=== PATIENT | male | born 1985 | race Caucasian/White ===

== ENCOUNTER 2022-02-15 13:59 | Observation (INO) ==
[2022-02-15 14:53] LABS: Basophils # (auto) 0.03 K/uL (0-0.2); Basophils % (auto) 0.4 %; Eosinophils # (auto) 0.15 K/uL (0-0.50); Eosinophils % (auto) 1.8 %; Hematocrit (blood only) 45.9 % (40.1-51.0); Hemoglobin 16.4 g/dl (14.0-18.0); Immature Granulocytes # (auto) 0.02 K/uL (0.00-0.02); Immature Granulocytes % (auto) 0.2 %; Lymphocytes % (auto) 19.4 %; Mean Corpuscular Hemoglobin 30.7 pg (25.0-34.0); Mean Corpuscular Hgb Conc 35.7 g/dL (32.0-36.0); Mean Corpuscular Volume 85.8 fL (80.0-100.0); Mean Platelet Volume 9.2 fL (9.4-12.4); Monocytes # (auto) 0.65 K/uL (0.24-0.82); Monocytes % (auto) 7.9 %; Neutrophils # (auto) 5.79 K/uL (1.4-6.5); Neutrophils % (auto) 70.3 %; Platelet Count 170 K/uL (130-400); RDW Coefficient of Variation 12.1 % (11.5-14.5); RDW Standard Deviation 37.6 fL (36.4-46.3); Red Blood Count 5.35 M/uL (4.63-6.08); White Blood Count 8.24 K/ul (4.8-10.8)
[2022-02-15 15:23] LABS: Alanine Aminotransferase 41 U/L (7-52); Albumin Globulin Ratio 1.5 (0.9-2); Albumin Level 4.7 gm/dl (3.4-5.0); Alkaline Phosphatase 67 U/L (34-104); Anion Gap 9 (3-11); Aspartate Aminotransferase 29 U/L (13-39); BUN Creatinine Ratio 35.1 (10-20); Bilirubin,Total 1.6 mg/dl (0.2-1.0); Blood Urea Nitrogen 27 mg/dl (6-23); C Reactive Protein < 0.50 mg/dl (0-0.5); Calcium 9.6 mg/dl (8.5-10.1); Carbon Dioxide 25 mmol/L (21-32); Chloride 103 mmol/L (98-107); Creatinine Clr Calc Pharmacy 169.9 ml/min; Est GFR (African American) 136.3 ml/min; Est GFR (Non-African American) 117.6 ml/min; Globulin 3.2 gm/dl (2.5-4.0); Glucose 118 mg/dl (70-99(Fasting)); Potassium 3.8 mmol/L (3.5-5.1); Sodium 137 mmol/L (136-145); Total Protein 7.9 gm/dl (6.0-8.3)
--- NOTE | 2022-02-15 15:44 | XRay Report ---
XR hand RT min 3V routine CLINICAL HISTORY: R hand swelling COMPARISON STUDY: None. FINDINGS: No fracture or dislocation within the right hand. There is diffuse soft tissue swelling. Th is is most pronounced within the thenar region. No radiopaque foreign bodies. Bone mineralization is intact. No erosive changes. IMPRESSION: Diffuse soft tissue swelling within the right hand. No fractures. ACT 112: Negative or not required by law. Electronically signed by: Saleem Gracia M.D. 02/15/2022 3:43 PM
--- NOTE | 2022-02-15 16:33 | Ultrasound Report ---
ULTRASOUND RIGHT UPPER EXTREMITY VENOUS CLINICAL HISTORY: Right hand swelling. COMPARISON STUDY: No priors.. TECHNIQUE: Real-time, grayscale, and color Doppler sonography of the deep veins of the right upper ex tremity is performed. Compression and augmentation were utilized. FINDINGS: There is no sonographic evidence of deep venous thrombosis identified in the right upper ex tremity. The right internal jugular, axillary, and brachial veins are patent and normally compressibl e. Normal venous waveforms and augmentation are seen within the right subclavian vein. The cephalic a nd basilic veins are clear. The visualized radial and ulnar veins are patent. Slow flow is seen throu ghout the regional veins. IMPRESSION: There is no sonographic evidence of deep venous thrombosis identified in the right upper extremity. ACT 112: Negative or not required by law. Electronically signed by: Shayne Vora M.D. 02/15/2022 4:31 PM
[2022-02-15] MEDS ORDERED: SODIUM CHLORIDE 0.9% 1000ML 1,000 ML IV ONE (17:25)
[2022-02-15] MEDS ORDERED: ACETAMINOPHEN 1,000 MG/100 ML VIAL IV STA (17:25)
[2022-02-15] MEDS ORDERED: OPTIRAY 350 100ml IV ONE (18:51)
[2022-02-15 19:15] LABS: Creatine Kinase 87 U/L (30-223)
--- NOTE | 2022-02-15 19:37 | CT Scan Report ---
CT forearm RT w con HISTORY: 37 years-old Male R arm swell/pain, impaired venous flow, recent vax acute pain and swellin g of the right upper extremity with reported recent vaccination COMPARISON: Chest CT of same day TECHNIQUE: Multiple axial CT images of the right forearm were obtained following the intravenous admi nistration of 89 mL Optiray 350. A dose lowering technique was used consistent with the principals of BARBI. FINDINGS: Motion degraded exam. Dorsal subcutaneous edema of the proximal forearm. No intramuscular or drainabl e fluid collection identified. The musculature is within normal limits. No abnormal enhancement ident ified. No acute fracture, dislocation or osseous erosion. IMPRESSION: 1. No acute fracture. 2. Nonspecific dorsal subcutaneous edema of the proximal to mid forearm. No abscess. ACT 112: Negative or not required by law. The above report was generated using voice recognition software. It may contain grammatical, syntax o r spelling errors. Electronically signed by: Shelton Ravi M.D. 02/15/2022 7:35 PM
--- NOTE | 2022-02-15 19:46 | CT Scan Report ---
CHEST CT WITH CONTRAST HISTORY: Acute pain of the chest and right upper arm with soft tissue swelling R arm swell/pain, imp aired venous flow, recent vax TECHNIQUE: Multiaxial CT images of the chest were performed following the IV administration of 89 cc of Optiray. A dose lowering technique was utilized adhering to the principles of ALARA. COMPARISON: Right upper extremity duplex venous Doppler study of same day. FINDINGS: Study is limited secondary to positioning of the patient. Normal thyroid. The heart is norm al in size with moderate coronary artery calcifications. No pericardial effusion. Unremarkable thorac ic aorta. No pneumothorax, pleural effusion, airspace consolidation or overt pulmonary edema. Minimal dependent subsegmental bibasilar atelectasis. Subcentimeter calcified granuloma of the basal left lo wer lobe. The central airways appear patent. Mild nonspecific distal esophageal wall thickening. Suggested hepatic steatosis. Mild gynecomastia. F racture identified. IMPRESSION: 1. No acute intrathoracic abnormality. 2. Again advanced moderate coronary artery calcifications ACT 112: Negative or not required by law. Electronically signed by: Shelton Ravi M.D. 02/15/2022 7:43 PM
[2022-02-15] MEDS ORDERED: dexAMETHasone**PF** 10 MG/ML VIAL IV ONE (20:16)
--- NOTE | 2022-02-15 21:56 | Emergency Department Note ---
Impression & Plan Pain of right upper extremity, Edema of right upper extremity, History of psoriatic arthritis ED Provider Note NAME: ALKA HONG AGE: 37 SEX: M ARRIVES VIA: Walk-In INFORMANT: Patient ED PROVIDER(S): Steven Orellana MD CHIEF COMPLAINT: Right arm swelling. PLAN: Disposition: Admit MEDICAL DECISION MAKING: The patient is a pleasant 37-year-old gentleman with a past medical history of psoriatic arthritis on Humira, diabetes, hypertension who presents emergency department, by his for evaluation of right arm swelling that has been ongoing for the past several days. Patient saw his PCP yesterday and had a scheduled outpatient ultrasound today but they arrived late for the appointment and presents to the emergency department as his symptoms were getting worse and did not want to wait for rescheduling. He denies any fevers, chills, cough, congestion, GI or symptoms. He denies any falls. He initially reports that the swelling got better when he raised his arm but now feels that this does not improve it at all. He reports he will get joint pain and swelling with his psoriatic arthritis but has never had his whole arm become swollen like this. On arrival the patient is no acute distress, afebrile stable vital signs. He has moderate edema in the right hand, forearm and upper arm. No erythema or warmth. Compartments are not tense and he has full range of motion without significant pain on passive stretch. He is a palpable radial and ulnar pulse. There is no tender axillary lymphadenopathy. He has delayed capillary refill due to suspected venous congestion. WBC, H/H and platelets within normal limits. Chemistry without metabolic acidosis. ESR 17, marginally above normal and CRP undetectable. Lactic acid 0.7, within normal limits. Total bili 1.6, nonspecific with alk phos within normal limits and LFTs otherwise unremarkable. CPK is within normal limits. High-sensitivity troponin 4.0, within normal limits. Procalcitonin is undetectable. COVID-19 RNA, PIO test was negative. Ultrasound of the right upper extremity was negative for DVT. CTA of the right upper extremity and chest were performed and were also negative for acute abnormalities. Soft tissue edema is noted. Unclear etiology to the patient's symptoms at this time. Infection less likely given reassuring blood work. Thoracic outlet syndrome is considered a possibility however his symptoms did occur rather abruptly and initially reported improvement when he would raise his arm and so considered less likely. A flare of his psoriatic arthritis is also possible though with nonelevated inflammatory markers considered less likely as well though he was given a dose of dexamethasone to see if this helps improve his symptoms. Given the patient's symptoms they agree with plan for admission for further observation/management. Case was discussed with Dr. Green, [facility] hospitalist, who will evaluate the patient for admission. Triage Nursing notes reviewed and agree them. Prior medical records reviewed Vital Signs: reviewed and remarkable for no significant abnormalities Differential diagnosis: DVT, musculoskeletal, infection, joint effusion, trauma, lymphedema, idiopathic, CHF, as well as other pathologies. ER treatment provided: See below. Diagnostics interpreted by me: ECG: Normal sinus rhythm, 80 bpm, no ectopy, no overt ST elevation or depression, QTC 410, QRS 78 Cardiac Monitoring: An order for continuous cardiac monitoring was placed and demonstrated Normal sinus rhythm, 80 bpm, no ectopy Laboratory studies: See below Imaging studies: See below Consultation(s): Case was discussed with Dr. Green, [facility] Hospitalist, who will evaluate the patient for admission. HPI: The patient is a pleasant 37-year-old gentleman with a past medical history of psoriatic arthritis on Humira, diabetes, hypertension who presents emergency department, by his for evaluation of right arm swelling that has been ongoing for the past several days. Patient saw his PCP yesterday and had a scheduled outpatient ultrasound today but they arrived late for the appointment and presents to the emergency department as his symptoms were getting worse and did not want to wait for rescheduling. He denies any fevers, chills, cough, congestion, GI or symptoms. He denies any falls. He initially reports that the swelling got better when he raised his arm but now feels that this does not improve it at all. He reports he will get joint pain and swelling with his psoriatic arthritis but has never had his whole arm become swollen like this. ROS: See above HPI for pertinent positives & negatives. A total of 10 systems reviewed and were otherwise negative. VITALS:See Below PHYSICAL EXAMINATION: GENERAL: Awake, alert, well-appearing, in no distress HENT: Normocephalic, atraumatic. Oropharynx unremarkable. EYES: Normal conjunctiva. Sclera non-icteric. NECK: Supple. No nuchal rigidity. FROM. No JVD. RESPIRATORY: Clear to auscultation. CARDIAC: Regular rate, normal rhythm. Extremities warm and well perfused. Pulses equal. ABDOMEN: Soft, non-distended. No tenderness to palpation. No rebound or guarding. No masses. RECTAL: Deferred. MUSCULOSKELETAL: Chest examination reveals no tenderness. The back is symmetrical on inspection without obvious abnormality. There is no CVA tenderness to palpation. No joint edema. EXTREMITIES: Moderate edema in the right hand, forearm and upper arm. No erythema or warmth. Compartments are not tense and he has full range of motion without significant pain on passive stretch. He is a palpable radial and ulnar pulse. There is no tender axillary lymphadenopathy. He has delayed capillary refill due to suspected venous congestion. Calves are equal size bilaterally and non-tender. No edema. No discoloration. NEURO: Normal sensorium. No sensory or motor deficits noted. SKIN: No rash or jaundice noted. Steven Orellana MD Past Med/Surg History Medical History Adalimumab (Humira) long-term use Coronary artery disease Diabetes Psoriatic arthritis Family History Other Family history non-contributory Social History Smoking Status: Former smoker Hx Alcohol Use: No Hx Substance Use: No Preferred Language: Chadian Communication Ability: Effective Cannery Worker Required: No Beliefs That Will Affect Care: None Current Living Situation: Spouse Feels Safe at Home: Yes Safety Concerns: Feels Safe At This Time Assistive Devices: Glasses Allergies Allergies Allergy/AdvReac Type Severity Reaction Status Date / Time No Known Allergies Allergy Unverified 02/15/22 20:23 Home Meds Home Medications Medication Instructions Recorded Confirmed acetaminophen 650 mg 1,300 mg PO AMHS 02/15/22 02/15/22 tablet,extended release adalimumab 40 mg/0.4 mL 40 mg subcut .EVERY 14 DAYS 02/15/22 02/15/22 subcutaneous pen kit (Humira(CF) Pen) aspirin 81 mg tablet,delayed 81 mg PO QAM 02/15/22 02/15/22 release cholecalciferol (vitamin D3) 50 50 mcg PO DAILY 02/15/22 02/15/22 mcg (2,000 unit) tablet (Vitamin D3) empagliflozin 25 mg tablet 25 mg PO DAILY 02/15/22 02/15/22 (Jardiance) fluoxetine 20 mg capsule 20 mg PO QAM 02/15/22 02/15/22 fluoxetine 60 mg tablet 60 mg PO QAM 02/15/22 02/15/22 insulin glargine 100 unit/mL (3 20 unit subcut AMHS 02/15/22 02/15/22 mL) subcutaneous pen (Basaglar KwmathewPen U-100 Insulin) lisinopril 20 mg tablet 20 mg PO QAM 02/15/22 02/15/22 melatonin 10 mg tablet 10 mg PO HS 02/15/22 02/15/22 meloxicam 7.5 mg tablet 7.5 - 15 mg PO DAILY PRN Pain 02/15/22 02/15/22 metoprolol succinate 25 mg 25 mg PO QAM 02/15/22 02/15/22 tablet,extended release 24 hr multivitamin with minerals-folic 1 tab PO QAM 02/15/22 02/15/22 acid 200 mcg chewable tablet (Multivitamin Gummies) nitroglycerin 0.4 mg sublingual 0.4 mg sublingual UD PRN Chest Pain 02/15/22 02/15/22 tablet (Nitrostat) ondansetron HCl 4 mg tablet 4 mg PO BID PRN nausea 02/15/22 02/15/22 semaglutide 0.25 mg or 0.5 mg (2 0.5 mg subcut WK 02/15/22 02/15/22 mg/1.5 mL) subcutaneous pen injector (Ozempic) Results & Data (ED) Vital Signs Vital Signs - 24 hr 02/15/22 14:05 02/15/22 16:26 02/15/22 19:04 Temperature 36.6 C Temperature Source Temporal Artery Scan Pulse Rate 90 Pulse Rate [Finger] 78 86 Pulse Rhythm [Finger] Regular Pulse Strength [Finger] Respiratory Rate 18 16 16 Respiratory Effort / Characteristics Non-Labored Spontaneous Non-Labored Respiratory Depth Normal Normal Respiratory Pattern Regular Regular Blood Pressure 127/86 Blood Pressure [Left Arm] 122/78 122/78 Blood Pressure Mean 99 Blood Pressure Mean [Left Arm] 92 92 Blood Pressure Position Sitting Pulse Oximetry 96 97 99 Oxygen Delivery Method Room Air Room Air Sepsis Recent Fever Within 48 Hours No Sepsis New/Unexplained Change in Mental Status N/A Sepsis Action Taken by Nursing No Action Required 02/15/22 20:07 02/15/22 21:00 02/15/22 22:00 Temperature Temperature Source Pulse Rate Pulse Rate [Finger] 93 H 82 84 Pulse Rhythm [Finger] Regular Regular Regular Pulse Strength [Finger] Normal Normal Normal Respiratory Rate 16 16 16 Respiratory Effort / Characteristics Non-Labored Respiratory Depth Normal Normal Normal Respiratory Pattern Blood Pressure Blood Pressure [Left Arm] 122/82 118/81 125/76 Blood Pressure Mean Blood Pressure Mean [Left Arm] 95 93 92 Blood Pressure Position Pulse Oximetry 95 96 96 Oxygen Delivery Method Room Air Room Air Sepsis Recent Fever Within 48 Hours Sepsis New/Unexplained Change in Mental Status Sepsis Action Taken by Nursing 02/15/22 22:50 Temperature Temperature Source Pulse Rate 86 Pulse Rate [Finger] Pulse Rhythm [Finger] Pulse Strength [Finger] Respiratory Rate 16 Respiratory Effort / Characteristics Respiratory Depth Respiratory Pattern Blood Pressure 122/74 Blood Pressure [Left Arm] Blood Pressure Mean Blood Pressure Mean [Left Arm] Blood Pressure Position Pulse Oximetry 98 Oxygen Delivery Method Room Air Sepsis Recent Fever Within 48 Hours Sepsis New/Unexplained Change in Mental Status Sepsis Action Taken by Nursing Laboratory Data Attestation: I reviewed the patient's lab results. Result diagrams: 02/15/22 14:25 02/15/22 14:25 Lab Results 02/15/22 02/15/22 02/15/22 Range/Units 14:25 14:25 14:25 WBC 8.24 (4.8-10.8) K/ul RBC 5.35 (4.63-6.08) M/uL Hgb 16.4 (14.0-18.0) g/dl Hct 45.9 (40.1-51.0) % MCV 85.8 (80.0-100.0) fL MCH 30.7 (25.0-34.0) pg MCHC 35.7 (32.0-36.0) g/dL RDW Std Deviation 37.6 (36.4-46.3) fL RDW Coeff of Lamont 12.1 (11.5-14.5) % Plt Count 170 (130-400) K/uL MPV 9.2 L (9.4-12.4) fL Immature Gran % (Auto) 0.2 % Neut % (Auto) 70.3 % Lymph % (Auto) 19.4 % Humphreys % (Auto) 7.9 % Eos % (Auto) 1.8 % Baso % (Auto) 0.4 % Neut # (Auto) 5.79 (1.4-6.5) K/uL Lymph # (Auto) 1.60 (1.2-3.4) K/uL Humphreys # (Auto) 0.65 (0.24-0.82) K/uL Eos # (Auto) 0.15 (0-0.50) K/uL Baso # (Auto) 0.03 (0-0.2) K/uL Immature Gran # (Auto) 0.02 (0.00-0.02) K/uL ESR 17 H (0-15) mm/hr Sodium 137 (136-145) mmol/L Potassium 3.8 (3.5-5.1) mmol/L Chloride 103 (98-107) mmol/L Carbon Dioxide 25 (21-32) mmol/L Anion Gap 9 (3-11) BUN 27 H (6-23) mg/dl Creatinine 0.77 (0.6-1.4) mg/dl Est Cr Clr Drug Dosing 169.9 ml/min Est GFR ( Amer) 136.3 ml/min Est GFR (Non-Af Amer) 117.6 ml/min BUN/Creatinine Ratio 35.1 H (10-20) Glucose 118 H (70-99(Fasting)) mg/dl Lactate (0.4-2.0) mmol/L Calcium 9.6 (8.5-10.1) mg/dl Total Bilirubin 1.6 H (0.2-1.0) mg/dl Direct Bilirubin AST 29 (13-39) U/L ALT 41 (7-52) U/L Alkaline Phosphatase 67 (34-104) U/L Total Creatine Kinase (30-223) U/L Troponin I High Sens 4.0 (0-20) pg/ml C-Reactive Protein < 0.50 (0-0.5) mg/dl Total Protein 7.9 (6.0-8.3) gm/dl Albumin 4.7 (3.4-5.0) gm/dl Globulin 3.2 (2.5-4.0) gm/dl Albumin/Globulin Ratio 1.5 (0.9-2) Procalcitonin (0-0.5) ng/ml SARS-CoV-2, RNA, NAAT (NEGATIVE) 02/15/22 02/15/22 02/15/22 Range/Units 14:25 14:25 16:29 WBC (4.8-10.8) K/ul RBC (4.63-6.08) M/uL Hgb (14.0-18.0) g/dl Hct (40.1-51.0) % MCV (80.0-100.0) fL MCH (25.0-34.0) pg MCHC (32.0-36.0) g/dL RDW Std Deviation (36.4-46.3) fL RDW Coeff of Lamont (11.5-14.5) % Plt Count (130-400) K/uL MPV (9.4-12.4) fL Immature Gran % (Auto) % Neut % (Auto) % Lymph % (Auto) % Humphreys % (Auto) % Eos % (Auto) % Baso % (Auto) % Neut # (Auto) (1.4-6.5) K/uL Lymph # (Auto) (1.2-3.4) K/uL Humphreys # (Auto) (0.24-0.82) K/uL Eos # (Auto) (0-0.50) K/uL Baso # (Auto) (0-0.2) K/uL Immature Gran # (Auto) (0.00-0.02) K/uL ESR (0-15) mm/hr Sodium (136-145) mmol/L Potassium (3.5-5.1) mmol/L Chloride (98-107) mmol/L Carbon Dioxide (21-32) mmol/L Anion Gap (3-11) BUN (6-23) mg/dl Creatinine (0.6-1.4) mg/dl Est Cr Clr Drug Dosing ml/min Est GFR ( Amer) ml/min Est GFR (Non-Af Amer) ml/min BUN/Creatinine Ratio (10-20) Glucose (70-99(Fasting)) mg/dl Lactate 0.7 (0.4-2.0) mmol/L Calcium (8.5-10.1) mg/dl Total Bilirubin (0.2-1.0) mg/dl Direct Bilirubin TNP AST (13-39) U/L ALT (7-52) U/L Alkaline Phosphatase (34-104) U/L Total Creatine Kinase 87 (30-223) U/L Troponin I High Sens (0-20) pg/ml C-Reactive Protein (0-0.5) mg/dl Total Protein (6.0-8.3) gm/dl Albumin (3.4-5.0) gm/dl Globulin (2.5-4.0) gm/dl Albumin/Globulin Ratio (0.9-2) Procalcitonin < 0.05 (0-0.5) ng/ml SARS-CoV-2, RNA, NAAT (NEGATIVE) 02/15/22 02/15/22 Range/Units 20:35 20:37 WBC (4.8-10.8) K/ul RBC (4.63-6.08) M/uL Hgb (14.0-18.0) g/dl Hct (40.1-51.0) % MCV (80.0-100.0) fL MCH (25.0-34.0) pg MCHC (32.0-36.0) g/dL RDW Std Deviation (36.4-46.3) fL RDW Coeff of Lamont (11.5-14.5) % Plt Count (130-400) K/uL MPV (9.4-12.4) fL Immature Gran % (Auto) % Neut % (Auto) % Lymph % (Auto) % Humphreys % (Auto) % Eos % (Auto) % Baso % (Auto) % Neut # (Auto) (1.4-6.5) K/uL Lymph # (Auto) (1.2-3.4) K/uL Humphreys # (Auto) (0.24-0.82) K/uL Eos # (Auto) (0-0.50) K/uL Baso # (Auto) (0-0.2) K/uL Immature Gran # (Auto) (0.00-0.02) K/uL ESR (0-15) mm/hr Sodium (136-145) mmol/L Potassium (3.5-5.1) mmol/L Chloride (98-107) mmol/L Carbon Dioxide (21-32) mmol/L Anion Gap (3-11) BUN (6-23) mg/dl Creatinine (0.6-1.4) mg/dl Est Cr Clr Drug Dosing ml/min Est GFR ( Amer) ml/min Est GFR (Non-Af Amer) ml/min BUN/Creatinine Ratio (10-20) Glucose (70-99(Fasting)) mg/dl Lactate (0.4-2.0) mmol/L Calcium (8.5-10.1) mg/dl Total Bilirubin (0.2-1.0) mg/dl Direct Bilirubin 0.2 AST (13-39) U/L ALT (7-52) U/L Alkaline Phosphatase (34-104) U/L Total Creatine Kinase (30-223) U/L Troponin I High Sens (0-20) pg/ml C-Reactive Protein (0-0.5) mg/dl Total Protein (6.0-8.3) gm/dl Albumin (3.4-5.0) gm/dl Globulin (2.5-4.0) gm/dl Albumin/Globulin Ratio (0.9-2) Procalcitonin (0-0.5) ng/ml SARS-CoV-2, RNA, NAAT NEGATIVE (NEGATIVE) Administered Medications Acetaminophen (Acetaminophen 325 Mg Tab) 650 mg PO Q4H PRN PRN Reason: Pain or Fever Stop: 03/17/22 23:20 Last Admin: 02/16/22 00:18 Dose: 650 mg Documented By: SHERI Ceftriaxone Sodium 2,000 mg/ (Dextrose) 70 mls @ 100 mls/hr IV DAILY MIREILLE; Protocol Stop: 02/22/22 23:20 Last Infusion: 02/16/22 01:10 Dose: 0 mls/hr Documented By: Admin: 02/16/22 00:18 Dose: 100 mls/hr Documented By: SHERI Insulin Aspart (Insulin Aspart Per Unit) 0 units SC Q6 [facility] Stop: 03/18/22 00:00 Last Admin: 02/16/22 00:19 Dose: Not Given Documented By: SHERI Co-signed By: KAREN Insulin Glargine (Lantus Per Unit Charge) 10 units SQ BID [place] Stop: 03/17/22 23:20 Last Admin: 02/16/22 00:15 Dose: 10 units Documented By: SHERI Co-signed By: KAREN Discontinued Medications Dexamethasone Sodium Phosphate (DexamethasonePf 10 Mg/Ml Vial) 10 mg IV NOW ONE Stop: 02/15/22 20:17 Last Admin: 02/15/22 21:39 Dose: 10 mg Documented By: LAUREANO Sodium Chloride (Nss 1000ml) 1,000 mls @ 999 mls/hr IV .Q1H1M ONE Stop: 02/15/22 18:25 Last Infusion: 02/15/22 18:31 Dose: 0 mls/hr Documented By: Admin: 02/15/22 17:30 Dose: 999 mls/hr Documented By: CESAR Acetaminophen (Ofirmev) 1,000 mg in 100 mls @ 400 mls/hr IV NOW STA Stop: 02/15/22 17:39 Last Infusion: 02/15/22 17:54 Dose: 0 mls/hr Documented By: Admin: 02/15/22 17:29 Dose: 400 mls/hr Documented By: CESAR Insulin Glargine (Lantus Per Unit Charge) 10 units SQ NOW ONE Stop: 02/15/22 23:57 Last Admin: 02/16/22 00:24 Dose: 10 units Documented By: SHERI Co-signed By: KAREN Ioversol (Optiray 350 100ml) 89 ml IV ONCE ONE Stop: 02/15/22 18:52 Last Admin: 02/15/22 18:51 Dose: 89 ml Documented By: TONIA Imaging Data Radiologist's Impression: Hand X-Ray 02/15/22 14:25 XR hand RT min 3V routine CLINICAL HISTORY: R hand swelling COMPARISON STUDY: None. FINDINGS: No fracture or dislocation within the right hand. There is diffuse soft tissue swelling. This is most pronounced within the thenar region. No radiopaque foreign bodies. Bone mineralization is intact. No erosive changes. IMPRESSION: Diffuse soft tissue swelling within the right hand. No fractures. ACT 112: Negative or not required by law. Electronically signed by: Saleem Garcia M.D. 02/15/2022 3:43 PM Venous Doppler Study 02/15/22 14:25 ULTRASOUND RIGHT UPPER EXTREMITY VENOUS CLINICAL HISTORY: Right hand swelling. COMPARISON STUDY: No priors.. TECHNIQUE: Real-time, grayscale, and color Doppler sonography of the deep veins of the right upper extremity is performed. Compression and augmentation were uti lized. FINDINGS: There is no sonographic evidence of deep venous thrombosis identified in the right upper extremity. The right internal jugular, axillary, and brachial veins are patent and normally compressible. Normal venous waveforms and augmentation are seen within the right subclavian vein. The cephalic and basilic veins are clear. The visualized radial and ulnar veins are patent. Slow flow is seen throughout the regional veins. IMPRESSION: There is no sonographic evidence of deep venous thrombosis identified in the right upper extremity. ACT 112: Negative or not required by law. Electronically signed by: Shayne Vora M.D. 02/15/2022 4:[address] 02/15/22 17:[address] WITH CONTRAST HISTORY: Acute pain of the chest and right upper arm with soft tissue swelling R arm swell/pain, impaired venous flow, recent vax TECHNIQUE: Multiaxial CT images of the chest were performed following the IV administration of 89 cc of Optiray. A dose lowering technique was utilized adhering to the principles of ALARA. COMPARISON: Right upper extremity duplex venous Doppler study of same day. FINDINGS: Study is limited secondary to positioning of the patient. Normal thyroid. The heart is normal in size with moderate coronary artery calcifications. No pericardial effusion. Unremarkable thoracic aorta. No pneumothorax, pleural effusion, airspace consolidation or overt pulmonary edema. Minimal dependent subsegmental bibasilar atelectasis. Subcentimeter calcified granuloma of the basal left lower lobe. The central airways appear patent. Mild nonspecific distal esophageal wall thickening. Suggested hepatic steatosis. Mild gynecomastia. Fracture identified. IMPRESSION: 1. No acute intrathoracic abnormality. 2. Again advanced moderate coronary artery calcifications ACT 112: Negative or not required by law. Electronically signed by: Shelton Ravi M.D. 02/15/2022 7:[address] 02/15/22 17:22 CT forearm RT w con HISTORY: 37 years-old Male R arm swell/pain, impaired venous flow, recent vax acute pain and swelling of the right upper extremity with reported recent va ccination COMPARISON: Chest CT of same day TECHNIQUE: Multiple axial CT images of the right forearm were obtained following the intravenous administration of 89 mL Optiray 350. A dose lowering technique was used consistent with the principals of ALARA. FINDINGS: Motion degraded exam. Dorsal subcutaneous edema of the proximal forearm. No intramuscular or drainable fluid collection identified. The musculature is within normal limits. No abnormal enhancement identified. No acute fracture, dislocation or osseous erosion. IMPRESSION: 1. No acute fracture. 2. Nonspecific dorsal subcutaneous edema of the proximal to mid forearm. No abscess. ACT 112: Negative or not required by law. The above report was generated using voice recognition software. It may contain grammatical, syntax or spelling errors. Electronically signed by: Shelton Ravi M.D. 02/15/2022 7:35 PM Discharge Plan Visit Data Chief Complaint: Swelling/Edema to Extremity Stated Complaint: SWELLING IN ARM,PAINFULL & HISTORY OF HEART ATTACK ED Provider: Steven Orellana Discharge Problem: Pain of right upper extremity, Edema of right upper extremity, History of psoriatic arthritis Patient Disposition: Admitted As Inpatient Discharge Instructions Interventions: ED Discharge Assessment Last Done: 02/15/22 22:50
[2022-02-15] MEDS ORDERED: NITROGLYCERIN SL 0.4 MG/TAB TAB SL PRN ×2 (23:21)
[2022-02-15] MEDS ORDERED: oxyCODONE HCL IR 5 MG TAB (IMMEDIATE RELEASE) PO PRN (23:21)
[2022-02-15] MEDS ORDERED: POLYETHYLENE (MIRALAX) 17 GM PACK PO PRN (23:21)
[2022-02-15] MEDS ORDERED: LANTUS PER UNIT CHARGE SQ ONE (23:56)
--- NOTE | 2022-02-15 23:59 | History and Physical Report ---
DATE OF ADMISSION: 02/15/2022 CHIEF COMPLAINT: Right upper extremity swelling. HISTORY OF PRESENT ILLNESS: A 37-year-old male with past medical history significant for depression, ADHD, history of psoriatic arthritis, currently on Humira, history of CAD, status post stent in 2019, history of diabetes, hypertension, history of short-term memory issues, chronic fatigue, brain fog, left knee meniscal tear and history of Lyme disease as a kid, presents with right upper extremity swelling going on for the last 3 days. The swelling is going up and down and also changing colors, currently pink, but yesterday he thinks it was slightly in black color and slightly bruises seen and also painful to move his right upper extremity. He had a COVID shot in the starting of this month in the same arm. Denies any fever or chills. No chest pain, no shortness of breath. No other complaints. Currently, resting comfortably, hemodynamically stable. Denies any headache. No blurred visions, no earache, no runny nose, no sore throat, no cough, no difficulty swallowing. No nausea, no abdominal pain. Normal bowel and bladder movements. ALLERGIES: No known drug allergies. PAST MEDICAL HISTORY: As mentioned above. PAST SURGICAL HISTORY: Cardiac stent placement, nerve ablation of lower back for back pain as per the patient. MEDICATIONS: The patient is on Tylenol Arthritis 1300 mg p.o. b.i.d., Humira every 14 days, aspirin 81 mg p.o. daily, vitamin D 50 mcg p.o. daily, Jardiance 25 mg p.o. daily, fluoxetine 80 mg daily, insulin glargine 20 units subcutaneous b.i.d., lisinopril 20 mg p.o. a.m., melatonin 10 mg p.o. at bedtime, meloxicam 7.5, 15 mg p.o. daily, metoprolol succinate 25 mg p.o. daily, multivitamins 1 tablet p.o. daily, Nitrostat 0.4 mg sublingual p.r.n., Zofran 4 mg p.o. b.i.d. p.r.n., semaglutide 0.5 mg subcutaneous weekly. FAMILY HISTORY: Father has diabetes, heart disease; mother has kidney stones; mother's father of MO at young age; mother's side uncle had MO. SOCIAL HISTORY: Quit smoking in 2019, prior to that smoked about 1 pack a day for 15 years. Alcohol, quit drinking alcohol about 7 years ago. Uses medical marijuana. REVIEW OF SYSTEMS: As per HPI. Rest of the review of systems is negative. PHYSICAL EXAMINATION: GENERAL: The patient is obese, not in acute distress. VITAL SIGNS: Temperature 36.6, pulse 84, respiratory rate 16, blood pressure 125/76, oxygen 96% on room air. HEENT: Pupils equal, round and reactive to light. Oral mucosa moist. NECK: No JVD, no neck masses. CARDIOVASCULAR: S1 and S2 heard. Regular rate and rhythm. No murmur, no gallop. RESPIRATORY SYSTEM: Normal AP diameter. No accessory muscle use. No wheezing, no crackles. ABDOMEN: Soft, bowel sounds present, nontender, no distention. CENTRAL NERVOUS SYSTEM: Alert and oriented. No facial droop. Speech is clear. Insight is good. Obeys commands. Moves extremities. EXTREMITIES: Right upper extremity is swollen and erythematous in the arm ,elbow forearm and hand; painful to move. LABORATORY DATA: WBC 8.2, hemoglobin 16.4, hematocrit 45.9, platelets 170. ESR 17. Sodium 137, potassium 3.8, chloride 103, bicarbonate 25, BUN 27, creatinine 0.7, serum glucose 118. Lactate 0.7, calcium 9.6, total bilirubin 1.6, AST 29, ALT 41, alkaline phosphatase 67, total creatine kinase 87. Troponin I high sensitivity 4. C-reactive protein less than 0.5. Procalcitonin less than 0.05. SARS-CoV-2 rapid test negative. IMAGING: Forearm CT with contrast: No acute fracture. Nonspecific dorsal subcutaneous edema of the proximal to mid forearm. No abscess. Venous Doppler study: There is no sonographic evidence of DVT identified in the right upper extremity. Hand x-ray: Diffuse soft tissue swelling of the right hand, no fractures. EKG: Normal sinus rhythm, rate of 80, no acute ST-T changes seen. ASSESSMENT AND PLAN: This is a 37-year-old male who presents with right upper extremity swelling. 1. Right upper extremity swelling, etiology unclear. Forearm CT with contrast, chest CT with contrast were unremarkable. Venous Doppler study negative study and x-ray was with no acute fractures. The patient has painful movements and currently has slightly reddish erythematous changes. The patient states it was slightly black yesterday and changing colors. The patient has a history of psoriatic arthritis, on Humira. There is no fever, no white count. ESR is slightly elevated at 17. CRP is normal. Lactate is normal. CPK is normal. The patient was given a dose of Decadron because of history of psoriatic arthritis. We will also empirically start on Rocephin for any infection. Consult vascular surgery and orthopedics and also rheumatology consults in the a.m. Etiology is unclear at this time.Will monitor his pulses by Doppler and Close monitor. 2. History of diabetes. We will cut back on his insulin to 10 units b.i.d. as he is currently n.p.o. and hold his Jardiance and place him on insulin sliding scale, monitor the blood sugar. 3. History of coronary artery disease, status post stent, on aspirin and beta ry. Currently stable. 4. History of hypertension, on lisinopril and metoprolol. We will monitor the blood pressure. 5. History of depression, attention-deficit/hyperactivity disorder. Continue on fluoxetine. 6. History of psoriatic arthritis, on Humira. The patient recently moved from [place], trying to establish with rheumatology locally. We will consult [facility] in the a.m. 7. Deep venous thrombosis prophylaxis, sequential compression devices for now in case if he needs any procedure. DISPOSITION: Admit to [facility]. PT/OT prior to discharge. Social service to help with discharge planning. Job ID: [id number] MTDD
[2022-02-16] MEDS: LANTUS PER UNIT CHARGE SQ SCH ×3 (00:15→21:24)
[2022-02-16] MEDS: cefTRIAXone SODIUM 2,000 MG in DEXTROSE 5% 50 ML IV SCH ×2 (00:18→08:16)
[2022-02-16] MEDS: ACETAMINOPHEN 325 MG TAB PO PRN ×3 (00:18→19:45)
[2022-02-16] MEDS: INSULIN ASPART PER UNIT SC SCH ×5 (00:19→19:55)
[2022-02-16 03:33] LABS: Appearance Urine Clear (Clear); Bilirubin Urine Negative (Negative); Blood Urine Negative (Negative); Color Urine Yellow; Glucose Urine UA 3+ (Negative); Ketones Urine Negative (Negative); Leukocyte Esterase Urine Negative (Negative); Nitrite Urine Negative (Negative); Protein Urine Negative (Negative); Specific Gravity Urine 1.042 (1.000-1.030); Urobilinogen Urine Negative (Negative); pH Urine 6.5 (4.5-7.5)
[2022-02-16 07:00] LABS: Basophils # (auto) 0.01 K/uL (0-0.2); Basophils % (auto) 0.1 %; Eosinophils # (auto) 0.01 K/uL (0-0.50); Eosinophils % (auto) 0.1 %; Hematocrit (blood only) 45.6 % (40.1-51.0); Hemoglobin 15.9 g/dl (14.0-18.0); Immature Granulocytes # (auto) 0.02 K/uL (0.00-0.02); Immature Granulocytes % (auto) 0.3 %; Lymphocytes # (auto) 0.58 K/uL (1.2-3.4); Lymphocytes % (auto) 7.8 %; Mean Corpuscular Hemoglobin 29.9 pg (25.0-34.0); Mean Corpuscular Hgb Conc 34.9 g/dL (32.0-36.0); Mean Corpuscular Volume 85.9 fL (80.0-100.0); Mean Platelet Volume 8.9 fL (9.4-12.4); Monocytes % (auto) 2.7 %; Neutrophils # (auto) 6.63 K/uL (1.4-6.5); Platelet Count 163 K/uL (130-400); RDW Coefficient of Variation 11.9 % (11.5-14.5); RDW Standard Deviation 37.2 fL (36.4-46.3); Red Blood Count 5.31 M/uL (4.63-6.08); White Blood Count 7.45 K/ul (4.8-10.8)
[2022-02-16 07:22] LABS: BUN Creatinine Ratio 33.3 (10-20); Calcium 9.7 mg/dl (8.5-10.1); Creatinine Clr Calc Pharmacy 188.8 ml/min; Est GFR (African American) 142.6 ml/min; Magnesium 2.4 mg/dl (1.7-2.4); Potassium 4.1 mmol/L (3.5-5.1)
[2022-02-16 08:04] LABS: Estimated Average Glucose 128 mg/dl; Hemoglobin A1C 6.1 % (4.5-5.6)
[2022-02-16] MEDS: METOPROLOL SUCC 25MG EXT REL TAB PO SCH (08:17)
[2022-02-16] MEDS: lisinopril 20 MG TAB PO SCH (08:17)
[2022-02-16] MEDS: CHOLECALCIFEROL 1,000 UNITS 25 MCG TAB PO SCH (08:17)
[2022-02-16] MEDS: ASPIRIN 81 MG ECTAB PO SCH (08:17)
[2022-02-16] MEDS: CEROVITE ADV FORMULA TAB PO SCH (08:18)
[2022-02-16] MEDS: FLUoxetine HCL 20 MG CAP PO SCH (08:22)
[2022-02-16] MEDS ORDERED: LACTATED RINGER'S 1,000 ML IV SCH (08:30)
[2022-02-16] MEDS ORDERED: NON-FORMULARY MEDICATION (Cholecalciferol (Vitamin D3) [Vitamin D3] 50 mcg (2,000 unit) Ta PO SCH (09:00)
[2022-02-16] MEDS ORDERED: FLUoxetine HCL 20 MG CAP PO SCH (09:00)
--- NOTE | 2022-02-16 11:14 | Consultation ---
Date of Consultation February 16, 2022 Assessment & Plan (1) Edema of right upper extremity: Pt with acute-onset RUE edema and heaviness/tightness/pain. Sx improved with lying down and/or elevating his R arm, worse when standing or sitting and arm is depdendent. Pt showed photos of his arm prior to his arrival; at that time, his arm was significantly more erythematous. Imaging demonstrates no DVT or superficial thrombophlebitis, or structural abnormalities to R arm/shoulder. He has excellent pulses, no sign of ischemia. It is possible pt initially had cellulitis of R arm, which is now improving with abx therapy. Another possibility is that he is having lymphedema of his R arm. Recommend pt undergo conservative treatment of RUE edema, including elevation, exercises or Physical therapy, and wear compression sleeve/gauntlet. No indications for vascular surgical intervention at this time. Please call if needed. History of Present Illness Reason for Consultation: R arm edema Attending Physician: Darrell Avendaño MD History of Present Illness 37 yo m with hx of psoriatic arthritis on Humira, DMII, depression, HTN, CAD with coronary stent, NV, admitted with edema of R arm for past 4 days. Pt states no previous hx of same. Denies prior hx of DVT or lymphedema. Admits pain, transient erythema/purple discoloration, and swelling worse with dependency. Denies JEAN, dizziness, chest pain, SOB, abd pain, N/V, rest pain, claudication, other complaints. Pt did undergo a COVID-19 inoculation about [address] of R arm demonstrates no abnormalities. Venous US negative for DVT or SVT. Allergies Allergy/AdvReac Type Severity Reaction Status Date / Time No Known Allergies Allergy Unverified 02/15/22 20:23 Home Medications Medication Instructions Recorded Confirmed Type acetaminophen 650 mg 1,300 mg PO AMHS 02/15/22 02/15/22 History tablet,extended release adalimumab 40 mg/0.4 mL 40 mg subcut .EVERY 14 DAYS 02/15/22 02/15/22 History subcutaneous pen kit (Humira(CF) Pen) aspirin 81 mg tablet,delayed 81 mg PO QAM 02/15/22 02/15/22 History release cholecalciferol (vitamin D3) 50 50 mcg PO DAILY 02/15/22 02/15/22 History mcg (2,000 unit) tablet (Vitamin D3) empagliflozin 25 mg tablet 25 mg PO DAILY 02/15/22 02/15/22 History (Jardiance) fluoxetine 20 mg capsule 20 mg PO QAM 02/15/22 02/15/22 History fluoxetine 60 mg tablet 60 mg PO QAM 02/15/22 02/15/22 History insulin glargine 100 unit/mL (3 20 unit subcut AMHS 02/15/22 02/15/22 History mL) subcutaneous pen (Basaglar KwikPen U-100 Insulin) lisinopril 20 mg tablet 20 mg PO QAM 02/15/22 02/15/22 History melatonin 10 mg tablet 10 mg PO HS 02/15/22 02/15/22 History meloxicam 7.5 mg tablet 7.5 - 15 mg PO DAILY PRN Pain 02/15/22 02/15/22 History metoprolol succinate 25 mg 25 mg PO QAM 02/15/22 02/15/22 History tablet,extended release 24 hr multivitamin with minerals-folic 1 tab PO QAM 02/15/22 02/15/22 History acid 200 mcg chewable tablet (Multivitamin Gummies) nitroglycerin 0.4 mg sublingual 0.4 mg sublingual UD PRN Chest Pain 02/15/22 02/15/22 History tablet (Nitrostat) ondansetron HCl 4 mg tablet 4 mg PO BID PRN nausea 02/15/22 02/15/22 History semaglutide 0.25 mg or 0.5 mg (2 0.5 mg subcut WK 02/15/22 02/15/22 History mg/1.5 mL) subcutaneous pen injector (Ozempic) Patient History Medical History Adalimumab (Humira) long-term use Coronary artery disease Diabetes Psoriatic arthritis Family History Other Family history non-contributory Social History Smoking Status: Former smoker Hx Alcohol Use: No Hx Substance Use: No Preferred Language: Japanese Communication Ability: Effective Prize Coordinator Required: No Beliefs That Will Affect Care: None Current Living Situation: Spouse Feels Safe at Home: Yes Safety Concerns: Feels Safe At This Time Assistive Devices: Glasses Review of Systems Review of Systems: All systems reviewed & are unremarkable except as noted in HPI & below Physical Exam Constitutional: WD/WN, vitals as above + obese, healthy appearing, cooperative and comfortable; not in distress ENMT: Ears: no hearing impairment Neck: trachea midline Respiratory: normal respiratory effort, lungs clear to auscultation Cardiovascular: Rate/Rhythm: regular rate and regular rhythm Vessels: normal peripheral pulses, posterior tibial pulses present, dorsalis pedis pulses present, brachial pulses present, radial pulses present and ulnar pulses present Extremities: normal capillary refill and + edema (RUE +3 edema, no warmth or erythema) Gastrointestinal (Abdomen): Inspection/Auscultation: abdomen normal to inspection and normal bowel sounds Percussion/Palpation: abdomen soft; abdomen nontender Musculoskeletal: Extremities: strength 5/5 throughout; no cyanosis Skin: no rashes, warm and dry Neurologic: moves all extremities and awake; no focal motor deficits and not confused Psychiatric: A+Ox3, euthymic affect Results & Data ([facility]) Vital Signs (Past 12 Hours) Vital Signs Temp Pulse Pulse Resp BP Pulse Ox O2 Del Method 02/16/22 07:57 36.5 C 77 18 111/71 95 Room Air 02/16/22 07:34 76 02/16/22 04:00 36.6 C 92 H 20 108/70 93 Room Air 02/15/22 23:34 88 02/15/22 23:26 36.7 C 90 18 144/80 H 96 Room Air
--- NOTE | 2022-02-16 11:39 | Orthopedic Consultation ---
Date of Consultation February 16, 2022 Assessment & Plan (1) Pain of right upper extremity: Likely cellulitis of the right upper extremity. CT and hand x-ray as noted below. No obvious abscesses noted and subcutaneous edema noted. I will discussed the case with Dr. Fried who is on-call. Patient has already been established with Dr. Fried in the recent past for knee injury. Currently his laboratory values do not denote a severe infection. White count is normal with only mild elevation of his ESR and CRP is within normal limits. No new or recent injury. Question possibility of cellulitis secondary to recent scratches from his cat. At this time recommendation of continued IV antibiotics which patient has noted a degree of resolution since being admitted. We have not cleared the 24-hour period yet initially and we will continue to follow patient. Continue to keep the right upper extremity elevated when at rest. We discussed that he could keep the arm above his head for some time or have multiple pillows at his right side to keep the extremity elevated. We will order a sling at the bedside for his right upper extremity and as needed when he is up and ambulating. Continue IV antibx. History of Present Illness Reason for Consultation: Right upper extremity erythema and swelling Attending Physician: Darrell Avendaño MD History of Present Illness Patient is a 37-year-old male with past medical history significant for depression, ADHD, history of psoriatic arthritis, currently on Humira, history of CAD, status post stent in 2019, history of diabetes, hypertension, history of short-term memory issues, chronic fatigue, brain fog, left knee meniscal tear and history of Lyme disease as a kid, patient states that approximately 4 days ago he began having increased pain in the forearm and some noted increased swelling and redness. This continued to worsen over the next several days. He states that the more he felt that he was up ambulating the worst the swelling became in the forearm that transferred into the hand. He states that there were times that he could not make a closed fist because of the swelling in his hand. At one point he noted decreased sensation along the forearm when the swelling is at its worst. Patient denies any recent injuries. He did have a COVID booster recently given at the beginning of the month that was in the same arm. He denies any fevers or chills at home. As his symptoms progressed, he came into the emergency room to be seen. He was thusly admitted by the hospitalist service and we have been asked to see him for his right upper extremity swelling and erythema. Allergies Allergy/AdvReac Type Severity Reaction Status Date / Time No Known Allergies Allergy Unverified 02/15/22 20:23 Home Medications Medication Instructions Recorded Confirmed Type acetaminophen 650 mg 1,300 mg PO AMHS 02/15/22 02/15/22 History tablet,extended release adalimumab 40 mg/0.4 mL 40 mg subcut .EVERY 14 DAYS 02/15/22 02/15/22 History subcutaneous pen kit (Humira(CF) Pen) aspirin 81 mg tablet,delayed 81 mg PO QAM 02/15/22 02/15/22 History release cholecalciferol (vitamin D3) 50 50 mcg PO DAILY 02/15/22 02/15/22 History mcg (2,000 unit) tablet (Vitamin D3) empagliflozin 25 mg tablet 25 mg PO DAILY 02/15/22 02/15/22 History (Jardiance) fluoxetine 20 mg capsule 20 mg PO QAM 02/15/22 02/15/22 History fluoxetine 60 mg tablet 60 mg PO QAM 02/15/22 02/15/22 History insulin glargine 100 unit/mL (3 20 unit subcut AMHS 02/15/22 02/15/22 History mL) subcutaneous pen (Basaglar KwikPen U-100 Insulin) lisinopril 20 mg tablet 20 mg PO QAM 02/15/22 02/15/22 History melatonin 10 mg tablet 10 mg PO HS 02/15/22 02/15/22 History meloxicam 7.5 mg tablet 7.5 - 15 mg PO DAILY PRN Pain 02/15/22 02/15/22 History metoprolol succinate 25 mg 25 mg PO QAM 02/15/22 02/15/22 History tablet,extended release 24 hr multivitamin with minerals-folic 1 tab PO QAM 02/15/22 02/15/22 History acid 200 mcg chewable tablet (Multivitamin Gummies) nitroglycerin 0.4 mg sublingual 0.4 mg sublingual UD PRN Chest Pain 02/15/22 02/15/22 History tablet (Nitrostat) ondansetron HCl 4 mg tablet 4 mg PO BID PRN nausea 02/15/22 02/15/22 History semaglutide 0.25 mg or 0.5 mg (2 0.5 mg subcut WK 02/15/22 02/15/22 History mg/1.5 mL) subcutaneous pen injector (Ozempic) Patient History Medical History (Updated 02/16/22 @ 13:16 by Darrell Avendaño MD) Adalimumab (Humira) long-term use Coronary artery disease Diabetes Psoriatic arthritis Family History Other Family history non-contributory Social History Smoking Status: Former smoker Hx Alcohol Use: No Hx Substance Use: No Preferred Language: Chinese Communication Ability: Effective Tumbling Barrel Painter Required: No Beliefs That Will Affect Care: None Current Living Situation: Spouse Feels Safe at Home: Yes Safety Concerns: Feels Safe At This Time Assistive Devices: None Physical Exam Physical Exam: Patient is a 37-year-old obese white male. Alert and oriented x3. No acute distress. Pleasant and cooperative. On examination of his right upper extremity, he has noted swelling of the forearm that goes down into his right hand. Patient did notice that the swelling was above the elbow and there are stephenson where you can see where his erythema had extended as well as swelling. The swelling above the elbow seems to be slowly resolving. He has some slight erythema left over the forearm but states that this seems to be resolving as well. He continues to have mild to moderate swelling in the forearm on the dorsal and volar aspects. I am able to palpate the forearm without causing extreme pain. Volar compartment a bit more swollen than the dorsal surface still soft and not overtly tender. I am able to take his wrist through passive and active range of motion without much in the way of increased pain into the forearm. Patient has a history of psoriatic arthritis and history of Lyme's disease since he was 6 and states that he has chronic pain in most of his joints. This does not seem to have worsened. I am able to take him through passive range of motion of flexion and extension of his fingers without any increased pain in the forearm, wrist or hand. As noted, fingers do have some swelling compared to the left side. He states that he has some slightly decreased sensation in the fingers at this time with some numbness and tingling. Capillary refill is less than 2 seconds. Currently he is able to almost make a full fist but swelling is keeping him from completing that. Patient does have some mild erythema over the right elbow. This has some mild swelling but he is not overly tender on palpation and has good range of motion of his elbow at this time. Patient does have multiple small scratches on his forearm and elbow area. These appear to be new within the last several days. He states that he owns a cat and occasionally does scratch him. He states he has some noted new pain over the acromion of the right shoulder. He constantly does have neck pain but has not been exacerbated. He does not have any radiculopathy at this point in time in the right upper extremity from his neck. Palpation of the acromion does not elicit a painful response at this time and he states that at times when it does hurt it is sharp and stabbing. Patient is able to take his right shoulder through range of motion without difficulty and forward flexion to 150 degrees. He states that his best way to control the swelling is to keep his arm above his head. He is able to do this without difficulty. He notes somewhat decreased strength in the right upper extremity compared to left. Results & Data ([facility]) Vital Signs (Past 12 Hours) Vital Signs Temp Pulse Pulse Resp BP Pulse Ox O2 Del Method 02/16/22 11:37 36.4 C L 86 18 119/81 94 Room Air 02/16/22 07:57 36.5 C 77 18 111/71 95 Room Air 02/16/22 07:34 76 02/16/22 04:00 36.6 C 92 H 20 108/70 93 Room Air Laboratory Results Laboratory Results WBC 7.45 K/ul (4.8-10.8) 02/16/22 06:43 RBC 5.31 M/uL (4.63-6.08) 02/16/22 06:43 Hgb 15.9 g/dl (14.0-18.0) 02/16/22 06:43 Hct 45.6 % (40.1-51.0) 02/16/22 06:43 MCV 85.9 fL (80.0-100.0) 02/16/22 06:43 MCH 29.9 pg (25.0-34.0) 02/16/22 06:43 MCHC 34.9 g/dL (32.0-36.0) 02/16/22 06:43 RDW Std Deviation 37.2 fL (36.4-46.3) 02/16/22 06:43 RDW Coeff of [place] 11.9 % (11.5-14.5) 02/16/22 06:43 Plt Count 163 K/uL (130-400) 02/16/22 06:43 MPV 8.9 fL (9.4-12.4) L 02/16/22 06:43 Immature Gran % (Auto) 0.3 % 02/16/22 06:43 Neut % (Auto) 89.0 % 02/16/22 06:43 Lymph % (Auto) 7.8 % 02/16/22 06:43 [place] % (Auto) 2.7 % 02/16/22 06:43 Eos % (Auto) 0.1 % 02/16/22 06:43 Baso % (Auto) 0.1 % 02/16/22 06:43 Neut # (Auto) 6.63 K/uL (1.4-6.5) H 02/16/22 06:43 Lymph # (Auto) 0.58 K/uL (1.2-3.4) L 02/16/22 06:43 [place] # (Auto) 0.20 K/uL (0.24-0.82) L 02/16/22 06:43 Eos # (Auto) 0.01 K/uL (0-0.50) 02/16/22 06:43 Baso # (Auto) 0.01 K/uL (0-0.2) 02/16/22 06:43 Immature Gran # (Auto) 0.02 K/uL (0.00-0.02) 02/16/22 06:43 ESR 17 mm/hr (0-15) H 02/15/22 14:25 Sodium 137 mmol/L (136-145) 02/16/22 06:43 Potassium 4.1 mmol/L (3.5-5.1) 02/16/22 06:43 Chloride 104 mmol/L (98-107) 02/16/22 06:43 Carbon Dioxide 26 mmol/L (21-32) 02/16/22 06:43 Anion Gap 7 (3-11) 02/16/22 06:43 BUN 23 mg/dl (6-23) 02/16/22 06:43 Creatinine 0.69 mg/dl (0.6-1.4) 02/16/22 06:43 Est Cr Clr Drug Dosing 188.8 ml/min 02/16/22 06:43 Est GFR ( Amer) 142.6 ml/min 02/16/22 06:43 Est GFR (Non-Af Amer) 123.0 ml/min 02/16/22 06:43 BUN/Creatinine Ratio 33.3 (10-20) H 02/16/22 06:43 Glucose 137 mg/dl (70-99(Fasting)) H 02/16/22 06:43 POC Glucose 156 mg/dl (70-99) H 02/16/22 05:50 Estimat Average Glucose 128 mg/dl 02/16/22 06:43 Hemoglobin A1c 6.1 % (4.5-5.6) H 02/16/22 06:43 Lactate 0.7 mmol/L (0.4-2.0) 02/15/22 16:29 Calcium 9.7 mg/dl (8.5-10.1) 02/16/22 06:43 Magnesium 2.4 mg/dl (1.7-2.4) 02/16/22 06:43 Total Bilirubin 1.6 mg/dl (0.2-1.0) H 02/15/22 14:25 Direct Bilirubin 0.2 mg/dl (0-0.2) 02/15/22 20:37 AST 29 U/L (13-39) 02/15/22 14:25 ALT 41 U/L (7-52) 02/15/22 14:25 Alkaline Phosphatase 67 U/L (34-104) 02/15/22 14:25 Total Creatine Kinase 87 U/L (30-223) 02/15/22 14:25 Troponin I High Sens 4.0 pg/ml (0-20) 02/15/22 14:25 C-Reactive Protein < 0.50 mg/dl (0-0.5) 02/15/22 14:25 Total Protein 7.9 gm/dl (6.0-8.3) 02/15/22 14:25 Albumin 4.7 gm/dl (3.4-5.0) 02/15/22 14:25 Globulin 3.2 gm/dl (2.5-4.0) 02/15/22 14:25 Albumin/Globulin Ratio 1.5 (0.9-2) 02/15/22 14:25 Procalcitonin < 0.05 ng/ml (0-0.5) 02/15/22 14:25 Urine Color Yellow 02/16/22 03:15 Urine Appearance Clear (Clear) 02/16/22 03:15 Urine pH 6.5 (4.5-7.5) 02/16/22 03:15 Ur Specific [place] 1.042 (1.000-1.030) H 02/16/22 03:15 Urine Protein Negative (Negative) 02/16/22 03:15 Urine Glucose (UA) 3+ (Negative) H 02/16/22 03:15 Urine Ketones Negative (Negative) 02/16/22 03:15 Urine Blood Negative (Negative) 02/16/22 03:15 Urine Nitrite Negative (Negative) 02/16/22 03:15 Urine Bilirubin Negative (Negative) 02/16/22 03:15 Urine Urobilinogen Negative (Negative) 02/16/22 03:15 Ur Leukocyte Esterase Negative (Negative) 02/16/22 03:15 SARS-CoV-2, RNA, NAAT NEGATIVE (NEGATIVE) 02/15/22 20:35 Impressions Hand X-Ray 02/15/22 14:25 XR hand RT min 3V routine CLINICAL HISTORY: R hand swelling COMPARISON STUDY: None. FINDINGS: No fracture or dislocation within the right hand. There is diffuse soft tissue swelling. This is most pronounced within the thenar region. No radiopaque foreign bodies. Bone mineralization is intact. No erosive changes. IMPRESSION: Diffuse soft tissue swelling within the right hand. No fractures. ACT 112: Negative or not required by law. Electronically signed by: Saleem Garcia M.D. 02/15/2022 3:43 PM Venous Doppler Study 02/15/22 14:25 ULTRASOUND RIGHT UPPER EXTREMITY VENOUS CLINICAL HISTORY: Right hand swelling. COMPARISON STUDY: No priors.. TECHNIQUE: Real-time, grayscale, and color Doppler sonography of the deep veins of the right upper extremity is performed. Compression and augmentation were utilized. FINDINGS: There is no sonographic evidence of deep venous thrombosis identified in the right upper extremity. The right internal jugular, axillary, and brachial veins are patent and normally compressible. Normal venous waveforms and augmentation are seen within the right subclavian vein. The cephalic and basilic veins are clear. The visualized radial and ulnar veins are patent. Slow flow is seen throughout the regional veins. IMPRESSION: There is no sonographic evidence of deep venous thrombosis identified in the right upper extremity. ACT 112: Negative or not required by law. Electronically signed by: Shayne Vora M.D. 02/15/2022 4:[address] 02/15/22 17:[address] WITH CONTRAST HISTORY: Acute pain of the chest and right upper arm with soft tissue swelling R arm swell/pain, impaired venous flow, recent vax TECHNIQUE: Multiaxial CT images of the chest were performed following the IV administration of 89 cc of Optiray. A dose lowering technique was utilized adhering to the principles of ALARA. COMPARISON: Right upper extremity duplex venous Doppler study of same day. FINDINGS: Study is limited secondary to positioning of the patient. Normal thyroid. The heart is normal in size with moderate coronary artery calcifica tions. No pericardial effusion. Unremarkable thoracic aorta. No pneumothorax, pleural effusion, airspace consolidation or overt pulmonary edema. Minimal dependent subsegmental bibasilar atelectasis. Subcentimeter calcified granuloma of the basal left lower lobe. The central airways appear patent. Mild nonspecific distal esophageal wall thickening. Suggested hepatic steatosis. Mild gynecomastia. Fracture identified. IMPRESSION: 1. No acute intrathoracic abnormality. 2. Again advanced moderate coronary artery calcifications ACT 112: Negative or not required by law. Electronically signed by: Shelton Ravi M.D. 02/15/2022 7:[address] 02/15/22 17:22 CT forearm RT w con HISTORY: 37 years-old Male R arm swell/pain, impaired venous flow, recent vax acute pain and swelling of the right upper extremity with reported recent vaccination COMPARISON: Chest CT of same day TECHNIQUE: Multiple axial CT images of the right forearm were obtained following the intravenous administration of 89 mL Optiray 350. A dose lowering technique was used consistent with the principals of ALARA. FINDINGS: Motion degraded exam. Dorsal subcutaneous edema of the proximal forearm. No intramuscular or drainable fluid collection identified. The musculature is within normal limits. No abnormal enhancement identified. No acute fracture, dislocation or osseous erosion. IMPRESSION: 1. No acute fracture. 2. Nonspecific dorsal subcutaneous edema of the proximal to mid forearm. No abscess. ACT 112: Negative or not required by law. The above report was generated using voice recognition software. It may contain grammatical, syntax or spelling errors. Electronically signed by: Shelton Ravi M.D. 02/15/2022 7:35 PM
--- NOTE | 2022-02-16 12:42 | Hospitalist Progress Note ---
Date of Service February 16, 2022 Assessment & Plan (1) Edema of right upper extremity: Plan: - unclear etiology but likely could be lymphedema of RUE - cellulitis less likely given fluctuating degree of swelling with dependence and discoloration as well with dependence - afebrile, no leukocytosis, other vitals wnl - empirically on Abx for cellulitis and will continue for now - ESR mildly elevated, CRP wnl - blood cultures pending - ortho and vascular recs appreciated - compression sleeve ordered for RUE - rheumatology also consulted but less likely psoriatic arthritis flare - will monitor on abx for another 24 hours and likely discharge with follow up (2) Psoriatic arthritis: Plan: - on humira q14 days - Rheum consulted for above (3) Depression with anxiety: Plan: - continue home meds (4) Diabetes: Plan: - hold PO meds - A1c 6.1% - insulin per pharmacy protocol - FSG AC+HS - diabetic diet (5) HTN (hypertension): Plan: - continue home meds - continue statin - hearth healthy diet (6) Coronary artery disease: Plan: - no chest pain at this time - continue BB and aspirin Plan DVT ppx: lovenox Code Status: Full Code Dispo: telemetry Darrell Avendaño MD [facility] Medicine Admission and Anticipated Discharge Date Admission Date: February 15, 2022 Subjective Patient with history of psoriatic arthritis on Humira, CAD s/p PCI 2019, DM, HTN presented with 3 days of RUE swelling that is intermittent and with fluctuations in swelling and discoloration. Seen by Vascular and orthopedic surgery with possible cellulitis vs lymphedema of RUE. Rheum also consulted and pending. Empirically started on ceftriaxone for cellulitis. Patient reports swelling is decreased since yesterday but it tends to get worse when dependent and while standing during the day. Gets swollen and darker reddish/purplish color when very swollen. Denies fevers or chills, n/v/d, abdominal pain, dysuria, chest pain, shortness of breath, sore throat, cough, congestion. Review of Systems Review of Systems: All systems reviewed & are unremarkable except as noted in Subjective Physical Exam Physical Exam: GENERAL: The patient is obese, not in acute distress. HEENT: Pupils equal, round and reactive to light. Oral mucosa moist. NECK: No JVD, no neck masses. CARDIOVASCULAR: S1 and S2 heard. Regular rate and rhythm. No murmur, no gallop. RESPIRATORY SYSTEM: Normal AP diameter. No accessory muscle use. No wheezing, no crackles. ABDOMEN: Soft, bowel sounds present, nontender, no distention. CENTRAL NERVOUS SYSTEM: Alert and oriented. No facial droop. Speech is clear. Insight is good. Obeys commands. Moves extremities. EXTREMITIES: Right upper extremity is swollen and erythematous in the arm ,elbow forearm and hand; painful to move. Results & Data Results & Data ([facility]) Vital Signs (Past 12 Hours) Vital Signs Temp Pulse Pulse Resp BP Pulse Ox O2 Del Method 02/16/22 11:37 36.4 C L 86 18 119/81 94 Room Air 02/16/22 07:57 36.5 C 77 18 111/71 95 Room Air 02/16/22 07:34 76 02/16/22 04:00 36.6 C 92 H 20 108/70 93 Room Air Diagnostic Findings Laboratory Results WBC 7.45 K/ul (4.8-10.8) 02/16/22 06:43 RBC 5.31 M/uL (4.63-6.08) 02/16/22 06:43 Hgb 15.9 g/dl (14.0-18.0) 02/16/22 06:43 Hct 45.6 % (40.1-51.0) 02/16/22 06:43 MCV 85.9 fL (80.0-100.0) 02/16/22 06:43 MCH 29.9 pg (25.0-34.0) 02/16/22 06:43 MCHC 34.9 g/dL (32.0-36.0) 02/16/22 06:43 RDW Std Deviation 37.2 fL (36.4-46.3) 02/16/22 06:43 RDW Coeff of Lamont 11.9 % (11.5-14.5) 02/16/22 06:43 Plt Count 163 K/uL (130-400) 02/16/22 06:43 MPV 8.9 fL (9.4-12.4) L 02/16/22 06:43 Immature Gran % (Auto) 0.3 % 02/16/22 06:43 Neut % (Auto) 89.0 % 02/16/22 06:43 Lymph % (Auto) 7.8 % 02/16/22 06:43 [place] % (Auto) 2.7 % 02/16/22 06:43 Eos % (Auto) 0.1 % 02/16/22 06:43 Baso % (Auto) 0.1 % 02/16/22 06:43 Neut # (Auto) 6.63 K/uL (1.4-6.5) H 02/16/22 06:43 Lymph # (Auto) 0.58 K/uL (1.2-3.4) L 02/16/22 06:43 [place] # (Auto) 0.20 K/uL (0.24-0.82) L 02/16/22 06:43 Eos # (Auto) 0.01 K/uL (0-0.50) 02/16/22 06:43 Baso # (Auto) 0.01 K/uL (0-0.2) 02/16/22 06:43 Immature Gran # (Auto) 0.02 K/uL (0.00-0.02) 02/16/22 06:43 ESR 17 mm/hr (0-15) H 02/15/22 14:25 Sodium 137 mmol/L (136-145) 02/16/22 06:43 Potassium 4.1 mmol/L (3.5-5.1) 02/16/22 06:43 Chloride 104 mmol/L (98-107) 02/16/22 06:43 Carbon Dioxide 26 mmol/L (21-32) 02/16/22 06:43 Anion Gap 7 (3-11) 02/16/22 06:43 BUN 23 mg/dl (6-23) 02/16/22 06:43 Creatinine 0.69 mg/dl (0.6-1.4) 02/16/22 06:43 Est Cr Clr Drug Dosing 188.8 ml/min 02/16/22 06:43 Est GFR ( Amer) 142.6 ml/min 02/16/22 06:43 Est GFR (Non-Af Amer) 123.0 ml/min 02/16/22 06:43 BUN/Creatinine Ratio 33.3 (10-20) H 02/16/22 06:43 Glucose 137 mg/dl (70-99(Fasting)) H 02/16/22 06:43 POC Glucose 111 mg/dl (70-99) H 02/16/22 11:47 Estimat Average Glucose 128 mg/dl 02/16/22 06:43 Hemoglobin A1c 6.1 % (4.5-5.6) H 02/16/22 06:43 Lactate 0.7 mmol/L (0.4-2.0) 02/15/22 16:29 Calcium 9.7 mg/dl (8.5-10.1) 02/16/22 06:43 Magnesium 2.4 mg/dl (1.7-2.4) 02/16/22 06:43 Total Bilirubin 1.6 mg/dl (0.2-1.0) H 02/15/22 14:25 Direct Bilirubin 0.2 mg/dl (0-0.2) 02/15/22 20:37 AST 29 U/L (13-39) 02/15/22 14:25 ALT 41 U/L (7-52) 02/15/22 14:25 Alkaline Phosphatase 67 U/L (34-104) 02/15/22 14:25 Total Creatine Kinase 87 U/L (30-223) 02/15/22 14:25 Troponin I High Sens 4.0 pg/ml (0-20) 02/15/22 14:25 C-Reactive Protein < 0.50 mg/dl (0-0.5) 02/15/22 14:25 Total Protein 7.9 gm/dl (6.0-8.3) 02/15/22 14:25 Albumin 4.7 gm/dl (3.4-5.0) 02/15/22 14:25 Globulin 3.2 gm/dl (2.5-4.0) 02/15/22 14:25 Albumin/Globulin Ratio 1.5 (0.9-2) 02/15/22 14:25 Procalcitonin < 0.05 ng/ml (0-0.5) 02/15/22 14:25 Urine Color Yellow 02/16/22 03:15 Urine Appearance Clear (Clear) 02/16/22 03:15 Urine pH 6.5 (4.5-7.5) 02/16/22 03:15 Ur Specific [place] 1.042 (1.000-1.030) H 02/16/22 03:15 Urine Protein Negative (Negative) 02/16/22 03:15 Urine Glucose (UA) 3+ (Negative) H 02/16/22 03:15 Urine Ketones Negative (Negative) 02/16/22 03:15 Urine Blood Negative (Negative) 02/16/22 03:15 Urine Nitrite Negative (Negative) 02/16/22 03:15 Urine Bilirubin Negative (Negative) 02/16/22 03:15 Urine Urobilinogen Negative (Negative) 02/16/22 03:15 Ur Leukocyte Esterase Negative (Negative) 02/16/22 03:15 SARS-CoV-2, RNA, NAAT NEGATIVE (NEGATIVE) 02/15/22 20:35 Impressions Hand X-Ray 02/15/22 14:25 XR hand RT min 3V routine CLINICAL HISTORY: R hand swelling COMPARISON STUDY: None. FINDINGS: No fracture or dislocation within the right hand. There is diffuse soft tissue swelling. This is most pronounced within the thenar region. No radiopaque foreign bodies. Bone mineralization is intact. No erosive changes. IMPRESSION: Diffuse soft tissue swelling within the right hand. No fractures. ACT 112: Negative or not required by law. Electronically signed by: Saleem Garcia M.D. 02/15/2022 3:43 PM Venous Doppler Study 02/15/22 14:25 ULTRASOUND RIGHT UPPER EXTREMITY VENOUS CLINICAL HISTORY: Right hand swelling. COMPARISON STUDY: No priors.. TECHNIQUE: Real-time, grayscale, and color Doppler sonography of the deep veins of the right upper extremity is performed. Compression and augmentation were utilized. FINDINGS: There is no sonographic evidence of deep venous thrombosis identified in the right upper extremity. The right internal jugular, axillary, and brachial veins are patent and normally compressible. Normal venous waveforms and augmentation are seen within the right subclavian vein. The cephalic and basilic veins are clear. The visualized radial and ulnar veins are patent. Slow flow is seen throughout the regional veins. IMPRESSION: There is no sonographic evidence of deep venous thrombosis identified in the right upper extremity. ACT 112: Negative or not required by law. Electronically signed by: Shayne Vora M.D. 02/15/2022 4:[address] 02/15/22 17:[address] WITH CONTRAST HISTORY: Acute pain of the chest and right upper arm with soft tissue swelling R arm swell/pain, impaired venous flow, recent vax TECHNIQUE: Multiaxial CT images of the chest were performed following the IV administration of 89 cc of Optiray. A dose lowering technique was utilized adhering to the principles of ALARA. COMPARISON: Right upper extremity duplex venous Doppler study of same day. FINDINGS: Study is limited secondary to positioning of the patient. Normal thyroid. The heart is normal in size with moderate coronary artery calcifications. No pericardial effusion. Unremarkable thoracic aorta. No pneumothorax, pleural effusion, airspace consolidation or overt pulmonary edema. Minimal dependent subsegmental bibasilar atelectasis. Subcentimeter calcified granuloma of the basal left lower lobe. The central airways appear patent. Mild nonspecific distal esophageal wall thickening. Suggested hepatic steatosis. Mild gynecomastia. Fracture identified. IMPRESSION: 1. No acute intrathoracic abnormality. 2. Again advanced moderate coronary artery calcifications ACT 112: Negative or not required by law. Electronically signed by: Shelton Ravi M.D. 02/15/2022 7:[address] 02/15/22 17:22 CT forearm RT w con HISTORY: 37 years-old Male R arm swell/pain, impaired venous flow, recent vax acute pain and swelling of the right upper extremity with reported recent vaccination COMPARISON: Chest CT of same day TECHNIQUE: Multiple axial CT images of the right forearm were obtained following the intravenous administration of 89 mL Optiray 350. A dose lowering technique was used consistent with the principals of ALARA. FINDINGS: Motion degraded exam. Dorsal subcutaneous edema of the proximal forearm. No intramuscular or drainable fluid collection identified. The musculature is within normal limits. No abnormal enhancement identified. No acute fracture, dislocation or osseous erosion. IMPRESSION: 1. No acute fracture. 2. Nonspecific dorsal subcutaneous edema of the proximal to mid forearm. No abscess. ACT 112: Negative or not required by law. The above report was generated using voice recognition software. It may contain grammatical, syntax or spelling errors. Electronically signed by: Shelton Ravi M.D. 02/15/2022 7:35 PM Medications Administered Current Inpatient Medications Acetaminophen (Acetaminophen 325 Mg Tab) 650 mg PO Q4H PRN PRN Reason: Pain or Fever Stop: 03/17/22 23:20 Last Admin: 02/16/22 00:18 Dose: 650 mg Aspirin (Aspirin 81 Mg Ectab) 81 mg PO QAM [facility] Stop: 03/18/22 08:59 Last Admin: 02/16/22 08:17 Dose: 81 mg Fluoxetine HCl (Fluoxetine Hcl 20 Mg Cap) 80 mg PO QAM [facility] Stop: 03/18/22 08:59 Last Admin: 02/16/22 08:22 Dose: 80 mg Ceftriaxone Sodium 2,000 mg/ (Dextrose) 70 mls @ 100 mls/hr IV DAILY [facility]; Protocol Stop: 02/22/22 23:20 Last Infusion: 02/16/22 08:58 Dose: Infused Insulin Aspart (Insulin Aspart Per Unit) 0 units SC Q6 [facility] Stop: 03/18/22 00:00 Last Admin: 02/16/22 06:06 Dose: Not Given Insulin Glargine (Lantus Per Unit Charge) 10 units SQ BID [facility] Stop: 03/17/22 23:20 Last Admin: 02/16/22 08:26 Dose: 10 units Lisinopril (Lisinopril 20 Mg Tab) 20 mg PO [facility]W [facility] Stop: 03/18/22 08:59 Last Admin: 02/16/22 08:17 Dose: 20 mg Melatonin (Melatonin 3 Mg Tab) 9 mg PO HS [facility] Stop: 03/18/22 20:59 Metoprolol Succinate (Metoprolol Succ 25mg Ext Rel Tab) 25 mg PO [facility] Stop: 03/18/22 08:59 Last Admin: 02/16/22 08:17 Dose: 25 mg Multivitamins/Minerals (Cerovite Adv Formula Tab) 1 tab PO QAM [facility] Stop: 03/18/22 08:59 Last Admin: 02/16/22 08:18 Dose: 1 tab Nitroglycerin (Nitroglycerin Sl 0.4 Mg/Tab Tab) 0.4 mg SL UD PRN PRN Reason: Chest Pain Stop: 03/17/22 23:20 Oxycodone HCl (Oxycodone Hcl Ir 5 Mg Tab (Immediate Release)) 5 mg PO Q6H PRN PRN Reason: Pain Stop: 03/01/22 23:20 Polyethylene Glycol (Polyethylene (Miralax) 17 Gm Pack) 17 gm PO DAILY PRN PRN Reason: Constipation Stop: 03/17/22 23:20 Vitamin D (Cholecalciferol 1,000 Units 25 Mcg Tab) 2,000 units PO DAILY [facility] Stop: 03/18/22 08:59 Last Admin: 02/16/22 08:17 Dose: 2,000 units
[2022-02-16] MEDS ORDERED: Nursing to Pharmacy Communication SCH (16:00)
[2022-02-16] MEDS ORDERED: oxyCODONE HCL IR 5 MG TAB (IMMEDIATE RELEASE) PO STA (20:05)
[2022-02-16] MEDS ORDERED: MELATONIN 3 MG TAB PO SCH (21:00)
[2022-02-17] MEDS: ACETAMINOPHEN 325 MG TAB PO PRN (03:33)
[2022-02-17] MEDS: LANTUS PER UNIT CHARGE SQ SCH (08:19)
[2022-02-17] MEDS: INSULIN ASPART PER UNIT SC SCH (08:19)
[2022-02-17] MEDS: CHOLECALCIFEROL 1,000 UNITS 25 MCG TAB PO SCH (08:20)
[2022-02-17] MEDS: cefTRIAXone SODIUM 2,000 MG in DEXTROSE 5% 50 ML IV SCH (08:20)
[2022-02-17] MEDS: CEROVITE ADV FORMULA TAB PO SCH (08:20)
[2022-02-17] MEDS: ASPIRIN 81 MG ECTAB PO SCH (08:20)
[2022-02-17] MEDS: FLUoxetine HCL 20 MG CAP PO SCH (08:20)
[2022-02-17] MEDS: lisinopril 20 MG TAB PO SCH (08:21)
[2022-02-17] MEDS: METOPROLOL SUCC 25MG EXT REL TAB PO SCH (08:21)
--- NOTE | 2022-02-17 09:45 | Orthopedic Progress Note ---
Date of Service February 17, 2022 Assessment & Plan (1) Edema of right upper extremity: Plan: Pain control Elevate right upper extremity Referral to lymphedema clinic Medical management Patient is stable from orthopedic perspective. 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 Has also had evaluations from vascular surgery. CRP, ESR and white blood cell count do not show any significant elevations concerning for active infection. There is no erythema on his upper extremity to be concerning for local cellulitis. I discussed with the hospitalist physician that this appears to be more related to lymphedema. Given that I would recommend following up with lymphedema clinic and otherwise continuing elevation on his right upper extremity. No further orthopedic intervention at this time. We will sign off Admission and Anticipated Discharge Date Admission Date: February 15, 2022 Subjective Patient seen and examined, no acute events overnight. Still does have diffuse right upper extremity swelling. There is no significant erythema present. Reports that the swelling seems to be related to keeping his arm in a dependent position. Physical Exam Constitutional: General: No acute distress, resting comfortably in bed, alert and oriented to person place and time Musculoskeletal: Right upper extremity -There is diffuse upper extremity lymphedema. There is no erythema present. Patient does tolerate passive and active range of the shoulder elbow and wrist joints without any issues. -Sensation intact to light touch in the distributions of the axillary/median/radial nerve distributions. He does note some slightly decreased sensation over ulnar nerve distribution -Fires deltoid/biceps/triceps/wrist flexors/wrist extensors/EPL/FPL/dorsal interossei Palpable radial pulse Results & Data ([facility]) Vital Signs (Past 12 Hours) Vital Signs Temp Pulse Pulse Resp BP Pulse Ox O2 Del Method 02/17/22 07:37 72 02/17/22 04:32 37.1 C 66 20 118/76 96 Room Air 02/17/22 00:34 104 H 02/16/22 22:45 37.0 C 77 20 121/72 96 Room Air
--- NOTE | 2022-02-17 11:35 | Discharge Summary ---
Date of Service February 17, 2022 Admission HPI Per Admitting Provider A 37-year-old male with past medical history significant for depression, ADHD, history of psoriatic arthritis, currently on Humira, history of CAD, status post stent in 2019, history of diabetes, hypertension, history of short-term memory issues, chronic fatigue, brain fog, left knee meniscal tear and history of Lyme disease as a kid, presents with right upper extremity swelling going on for the last 3 days. The swelling is going up and down and also changing colors, currently pink, but yesterday he thinks it was slightly in black color and slightly bruises seen and also painful to move his right upper extremity. He had a COVID shot in the starting of this month in the same arm. Denies any fever or chills. No chest pain, no shortness of breath. No other complaints. Currently, resting comfortably, hemodynamically stable. Denies any headache. No blurred visions, no earache, no runny nose, no sore throat, no cough, no difficulty swallowing. No nausea, no abdominal pain. Normal bowel and bladder movements. Admission Exam Per Admitting Provider GENERAL: The patient is obese, not in acute distress. VITAL SIGNS: Temperature 36.6, pulse 84, respiratory rate 16, blood pressure 125/76, oxygen 96% on room air. HEENT: Pupils equal, round and reactive to light. Oral mucosa moist. NECK: No JVD, no neck masses. CARDIOVASCULAR: S1 and S2 heard. Regular rate and rhythm. No murmur, no gallop. RESPIRATORY SYSTEM: Normal AP diameter. No accessory muscle use. No wheezing, no crackles. ABDOMEN: Soft, bowel sounds present, nontender, no distention. CENTRAL NERVOUS SYSTEM: Alert and oriented. No facial droop. Speech is clear. Insight is good. Obeys commands. Moves extremities. EXTREMITIES: Right upper extremity is swollen and erythematous in the arm ,elbow forearm and hand; painful to move. Principal Diagnosis RUE lymphedema Discharge Exam GENERAL: The patient is obese, not in acute distress. HEENT: Pupils equal, round and reactive to light. Oral mucosa moist. NECK: No JVD, no neck masses. CARDIOVASCULAR: S1 and S2 heard. Regular rate and rhythm. No murmur, no gallop. RESPIRATORY SYSTEM: Normal AP diameter. No accessory muscle use. No wheezing, no crackles. ABDOMEN: Soft, bowel sounds present, nontender, no distention. CENTRAL NERVOUS SYSTEM: Alert and oriented. No facial droop. Speech is clear. Insight is good. Obeys commands. Moves extremities. EXTREMITIES: Right upper extremity is swollen and erythematous in the arm ,elbow forearm and hand; painful to move. Discharge Data Allergies Allergy/AdvReac Type Severity Reaction Status Date / Time No Known Allergies Allergy Unverified 02/15/22 20:23 Consultations 02/15/22 20:15 ED Decision to Admit Stat 02/16/22 08:00 Consult Orthopedic Surgery Routine Consult Rheumatology Routine 02/16/22 20:00 Consult Vascular Surgery Routine Ordered Studies 02/15/22 14:25 US venous doppler UE RT Stat 02/15/22 17:22 CT arm [CT forearm RT w con] Stat CT chest diagnostic w con Stat Hospital Course (1) Edema of right upper extremity: - unclear etiology but likely could be lymphedema of RUE - cellulitis less likely given fluctuating degree of swelling with dependence and discoloration as well with dependence - afebrile, no leukocytosis, other vitals wnl - empirically on Abx for cellulitis - stopped - ESR mildly elevated, CRP wnl - blood cultures NGTD - ortho and vascular recs appreciated - no intervention likely due to lymphedema - compression sleeve ordered for RUE - no real improvement with swelling on abx - discontinue - script in chart for lymphedema clinic - patient aware - will also provide script for plastic surgery referral for outpatient follow up for surgical options (2) Psoriatic arthritis: - on humira q14 days - resume as outpatient (3) Depression with anxiety: - continue home meds (4) Diabetes: - hold PO meds - A1c 6.1% - insulin per pharmacy protocol - FSG AC+HS - diabetic diet (5) HTN (hypertension): - continue home meds - continue statin - hearth healthy diet (6) Coronary artery disease: - no chest pain at this time - continue BB and aspirin Plan DVT ppx: lovenox Code Status: Full Code Dispo: telemetry Darrell Avendaño MD [facility] Medicine Total Time Total Time Spent Total Time Spent (In Minutes): 25 Total Time Includes: Examination of the Patient, Discharge Planning, Medication Reconciliation and Communication With Other Providers Discharge Plan Discharge Items Patient Disposition: Home - Self-Care Reason For Visit: RIGHT UPPER EXTREMITY SWELLING Discharge Diagnosis: lymphedema Activity: Resume your previous activity Non-emergency contact: Primary Care Provider Call non-emergency contact if: you have any medication questions and your sympto ms worsen Follow-up/Referrals: Lymphedema Clinics in [place] [Other] (1) [facility] [address], [place] [address] 2) [facility] [address] [place] [address], [address] [place] [address] Office: ) Alyssa Gardiner DO [Primary Care Provider] - (Date & Time 02/20/2022 3:20 PM Provider Alyssa Gardiner DO Department [facility] ) Diet: Carb Consistent or DM2 and Heart Healthy Addtl Attending Provider Instructions: You were admitted for worsening swelling of right upper extremity. You had US of that arm to look for blood clots which was negative. You also had CT scans of that arm and chest, no blockages or tumors were seen to explain the swelling. you were given antibiotics for possible cellulitis but this was discontinued as it was not a likely explanation for your symptoms. You likely have lymphedema of your right upper extremity. We do not have a lymphedema surgeon at this facility. You will be discharged with a referral to lymphedema clinic and to a plastic surgeon, possibly for [facility] or [facility] in [place]. Pending Studies at Discharge: No Stand-Alone Forms: [facility] Medications and DC Order Prescriptions: New (DME) jose angel.stocking,thigh,reg,med Misc See Rx Instructions .Route Qty: 12 0RF Rx Instructions: As directed Continued fluoxetine 20 mg capsule 20 mg PO QAM insulin glargine [Basaglar KwikPen U-100 Insulin] 100 unit/mL (3 mL) insulin pen 20 unit SUBCUT [facility] fluoxetine 60 mg tablet 60 mg PO QAM Ozempic 0.25 mg or 0.5 mg(2 mg/1.5 mL) pen injector 0.5 mg SUBCUT WK Rx Instructions: sundays Humira(CF) Pen 40 mg/0.4 mL pen injector kit 40 mg SUBCUT .EVERY 14 DAYS Rx Instructions: mondays lisinopril 20 mg tablet 20 mg PO QAM Jardiance 25 mg tablet 25 mg PO DAILY ondansetron HCl 4 mg tablet 4 mg PO BID PRN (Reason: nausea) meloxicam 7.5 mg tablet 7.5 - 15 mg PO DAILY PRN (Reason: Pain) metoprolol succinate 25 mg Tablet Extended Release 24 Hr 25 mg PO QAM cholecalciferol (vitamin D3) [Vitamin D3] 50 mcg (2,000 unit) Tablet 50 mcg PO DAILY aspirin 81 mg Tablet,Delayed Release (Dr/Ec) 81 mg PO QAM nitroglycerin [Nitrostat] 0.4 mg Tablet, Sublingual 0.4 mg sublingual UD PRN (Reason: Chest Pain) acetaminophen 650 mg Tablet Extended Release 1,300 mg PO [facility] Multivitamin Gummies 200 mcg Tablet,Chewable 1 tab PO QAM melatonin 10 mg Tablet 10 mg PO HS Discharge Orders: Discharge Order (Routine); Ordered 02/17/22 Ordered By: Darrell Lino/Other Patient Handouts: Managing Type 2 Diabetes Admission Data Admit Date/Time: 02/15/22 23:15 Attending Provider: Darrell Avendaño Admit Provider: Durga Green Primary Care Provider: Alyssa Gardiner Other Providers: Durga Green ; Rashel Jaffe ; Jatin Sanchez ; Lasha Meléndez ; Thuy Smith Thomas J ; Princess Wylie ; Stanislaw Finley ; Kwan Wheat ; Gerber Sosa ; Truong Tracy ; Kwan Eric ; Tex Gillespie ; Thai Marshall ; Fredy Hernandez ; Princess Chow ; Kailash Cruz ; Liana Salas ; [place] ; Mikki Bustamante ; Shelton Fried ; Angelica Martinez ; Praful Soriano ; Osman Pereira Other Interventions: Discharge Summary Assessment (RN) Last Done: 02/17/22 10:33
--- NOTE | 2022-02-17 21:57 | Electrocardiogram Report ---
Test Reason : Blood Pressure : / mmHG Vent. Rate : 080 BPM Atrial Rate : 080 BPM P-R Int : 172 ms QRS Dur : 078 ms QT Int : 356 ms P-R-T Axes : 001 055 044 degrees QTc Int : 410 ms Normal sinus rhythm Normal ECG No previous ECGs available Confirmed by Elias Bernal ([id number]) on 02/17/2022 9:57:28 PM Referred By: REFERRED SELF Confirmed By:Elias Bernal
== END 2022-02-17 12:20 | disposition home or self-care (01) | DRG 607 ==
LOC: ED 13:59 → 2N 22:50 → INTOOBSV 23:15 → 2N 23:15

== ENCOUNTER 2023-02-18 08:06 | Inpatient (IN) ==
--- NOTE | 2023-02-18 08:53 | Emergency Department Note ---
Impression & Plan NSTEMI (non-ST elevated myocardial infarction), HTN (hypertension), Elevated troponin, Coronary artery disease, Noncompliance with medication regimen ED Provider Note NAME: ALKA HONG AGE: 38 SEX: M ARRIVES VIA: Walk-In INFORMANT: Patient ED PROVIDER(S): Steven Orellana MD CHIEF COMPLAINT: Chest pain PLAN: Disposition: Admit MEDICAL DECISION MAKING: The patient is a pleasant 38-year-old gentleman with a past medical history of psoriatic arthritis, hypertension, type 2 diabetes, CAD with history of SD per patient's report who presents to the emergency department for evaluation of anterior chest pain that he experienced around 5 AM today in the setting of having ongoing shoulder pain last night and through the night which was more typical of his chronic pain related to psoriatic arthritis however the severity and character abruptly changed at 5 AM and he had associated shortness of breath with this. He reports he took 2 baby aspirin but did not feel any improvement but upon arriving to the emergency department his pain was gradually dissipating and mostly resolved. He reports having mild upper respiratory congestion in the setting of having family members with similar symptoms. Otherwise denies any recent fevers, vomiting, diarrhea or urinary symptoms. He reports that he has been not taking any of his medications including his blood pressure medicine his diabetes medication and his Humira for 6 months or so due to having changes with his employment and insurance. He also adds that this is added additional stress and so has not been able to yet seek insurance through the marketplace which she feels he should be able to do. On evaluation the patient is no acute distress, afebrile with blood pressure 180s/110s and vital signs otherwise stable. He appears clinically dry. WBC, H/H and platelets within normal limits. Chemistry without metabolic acidosis. Glucose is 444 initially however downtrending to 334 with IV fluid hydration alone. LFTs without significant normality. Initial HS troponin 46.2 with delta 3-hour HS troponin 6300. Lipase not elevated. Respiratory viral panel/[employer] was negative. CT of the chest was performed and was negative for acute pulmonary embolism though note is made of trace chronic pulmonary embolus within the right lower lobe pulmonary artery of unclear signficance. Note is made of age advanced coronary artery atherosclerosis. Repeat EKG is unchanged. Patient denied any chest pain during his emergency department observation. We did review his findings which given his increased hi gh-sensitivity troponin is suggestive of NSTEMI he agreed with plan for admission for further management. Patient was given full dose aspirin and heparin bolus and drip initiated. Case was [facility] will evaluate the patient for admission. Triage Nursing notes reviewed and agree them. Prior/external medical records reviewed Vital Signs: reviewed Differential diagnosis: Cardiac ischemia, aortic dissection, pulmonary embolism, pneumothorax, pneumonia, pericarditis, myocarditis, esophageal rupture, GERD, cholecystitis, pancreatitis, musculoskeletal, as well as other pathologies. ER treatment provided: See below. Diagnostics interpreted by me: ECG 0818: Normal sinus rhythm, 81 bpm, no ectopy, T wave inversion inferiorly, no overt ST elevation or depression, QTc 390, QRS 98. ECG 1318: Normal sinus rhythm, 87 bpm, no ectopy, T wave abnormality inferiorly, no overt ST elevation or depression, QTc 406, QRS 76. Cardiac Monitoring: An order for continuous cardiac monitoring was placed and demonstrated Normal sinus rhythm, 81 bpm, no ectopy Laboratory studies: See below Imaging studies: See below Consultation(s): Case was discussed with Jose [facility]allow[facility] who will evaluate the patient for admission. HPI: The patient is a pleasant 38-year-old gentleman with a past medical history of psoriatic arthritis, hypertension, type 2 diabetes, CAD with history of SD per patient's report who presents to the emergency department for evaluation of anterior chest pain that he experienced around 5 AM today in the setting of having ongoing shoulder pain last night and through the night which was more typical of his chronic pain related to psoriatic arthritis however the severity and character abruptly changed at 5 AM and he had associated shortness of breath with this. He reports he took 2 baby aspirin but did not feel any improvement but upon arriving to the emergency department his pain was gradually dissipating and mostly resolved. He reports having mild upper respiratory congestion in the setting of having family members with similar symptoms. Otherwise denies any recent fevers, vomiting, diarrhea or urinary symptoms. He reports that he has been not taking any of his medications including his blood pressure medicine his diabetes medication and his Humira for 6 months or so due to having changes with his employment and insurance. He also adds that this is added additional stress and so has not been able to yet seek insurance through the marketplace which she feels he should be able to do. ROS: See above HPI for pertinent positives & negatives. A total of 10 systems reviewed and were otherwise negative. VITALS:See Below PHYSICAL EXAMINATION: GENERAL: Awake, alert, fatigued but well-appearing, in no distress HENT: Normocephalic, atraumatic. Oropharynx with dry mucous membranes and otherwise unremarkable. EYES: Normal conjunctiva. Sclera non-icteric. NECK: Supple. No nuchal rigidity. FROM. No JVD. RESPIRATORY: Clear to auscultation. CARDIAC: Regular rate, normal rhythm. Extremities warm and well perfused. Pulses equal. ABDOMEN: Soft, non-distended. No tenderness to palpation. No rebound or guarding. No masses. RECTAL: Deferred. MUSCULOSKELETAL: Chest examination reveals no tenderness. The back is symmetrical on inspection without obvious abnormality. There is no CVA tenderness to palpation. No joint edema. LOWER EXTREMITIES: Calves are equal size bilaterally and non-tender. No edema. No discoloration. NEURO: Normal sensorium. No sensory or motor deficits noted. SKIN: No rash or jaundice noted. ED COURSE: Critical Care: I have personally spent greater than 40 minutes of critical care time in the direct management of this patient. This includes bedside care, interpretation of diagnostic studies, and testing, discussion with consultants, patient, and family members, and other required patient management activities. This 40 minutes is in excess of all separately billable procedures. 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 Required: No Beliefs That Will Affect Care: None Current Living Situation: Family Feels Safe at Home: Yes Safety Concerns: Feels Safe At This Time Assistive Devices: None Allergies Allergies Allergy/AdvReac Type Severity Reaction Status Date / Time No Known Allergies Allergy Unverified 02/15/22 20:23 Home Meds Home Medications Medication Instructions Recorded Confirmed aspirin 81 mg tablet,delayed 81 mg PO QAM 02/15/22 02/18/23 release multivitamin with minerals-folic 1 tab PO QAM 02/15/22 02/18/23 acid 200 mcg chewable tablet (Multivitamin Gummies) fluoxetine 60 mg tablet 60 mg DAILY 02/18/23 02/18/23 lisinopril 20 mg tablet 20 mg DAILY 02/18/23 02/18/23 Results & Data (ED) Vital Signs Vital Signs - 24 hr 02/18/23 08:22 02/18/23 08:24 02/18/23 08:40 Temperature 36.9 C Temperature Source Temporal Artery Scan Pulse Rate 84 86 Pulse Rate [Apical] Respiratory Rate 17 Respiratory Effort / Characteristics Non-Labored Respiratory Depth Normal Blood Pressure 182/114 H Blood Pressure [Right Arm] Blood Pressure Mean 136 Blood Pressure Mean [Right Arm] Pulse Oximetry 97 Oxygen Delivery Method Room Air Room Air Oxygen Flow Rate 95 Sepsis Recent Fever Within 48 Hours No Sepsis New/Unexplained Change in Mental Status No Sepsis Action Taken by Nursing No Action Required 02/18/23 08:40 02/18/23 08:40 02/18/23 10:12 Temperature Temperature Source Pulse Rate Pulse Rate [Apical] 95 H 88 Respiratory Rate 20 19 Respiratory Effort / Characteristics Non-Labored Non-Labored Respiratory Depth Normal Normal Blood Pressure Blood Pressure [Right Arm] 177/120 H 149/98 H Blood Pressure Mean Blood Pressure Mean [Right Arm] 139 115 Pulse Oximetry 96 95 95 Oxygen Delivery Method Room Air Room Air Room Air Oxygen Flow Rate Sepsis Recent Fever Within 48 Hours Sepsis New/Unexplained Change in Mental Status Sepsis Action Taken by Nursing 02/18/23 11:01 02/18/23 12:36 02/18/23 13:20 Temperature Temperature Source Pulse Rate 85 Pulse Rate [Apical] 86 86 Respiratory Rate 19 18 Respiratory Effort / Characteristics Non-Labored Respiratory Depth Normal Blood Pressure Blood Pressure [Right Arm] 171/115 H 156/108 H Blood Pressure Mean Blood Pressure Mean [Right Arm] 133 124 Pulse Oximetry 97 97 Oxygen Delivery Method Room Air Room Air Oxygen Flow Rate Sepsis Recent Fever Within 48 Hours Sepsis New/Unexplained Change in Mental Status Sepsis Action Taken by Nursing Laboratory Data Attestation: I reviewed the patient's lab results. 02/18/23 08:32 02/18/23 08:32 Lab Results 02/18/23 02/18/23 02/18/23 Range/Units 08:32 08:32 08:32 WBC 6.35 (4.8-10.8) K/ul RBC 5.77 (4.70-6.10) M/uL Hgb 16.4 (14.0-18.0) g/dl Hct 46.3 (42.0-52.0) % MCV 80.2 (80.0-100.0) fL MCH 28.4 (25.0-34.0) pg MCHC 35.4 (32.0-36.0) g/dL RDW Std Deviation 34.7 L (36.4-46.3) fL RDW Coeff of Lamont 12.1 (11.5-14.5) % Plt Count 187 (130-400) K/uL MPV 10.6 (9.4-12.4) fL Immature Gran % (Auto) 0.6 % Neut % (Auto) 69.1 % Lymph % (Auto) 20.5 % [place] % (Auto) 7.6 % Eos % (Auto) 1.6 % Baso % (Auto) 0.6 % Neut # (Auto) 4.39 (1.40-6.50) K/uL Lymph # (Auto) 1.30 (1.20-3.40) K/uL [place] # (Auto) 0.48 (0.11-0.59) K/uL Eos # (Auto) 0.10 (0.00-0.50) K/uL Baso # (Auto) 0.04 (0.00-0.20) K/uL Immature Gran # (Auto) 0.04 (0.01-0.20) K/uL PT 11.0 (9.0-12.0) Seconds INR 1.0 (0.9-1.1) APTT (21.0-31.0) Seconds PTT Ratio Sodium 133 L (136-145) mmol/L Potassium 3.9 (3.5-5.1) mmol/L Chloride 100 (98-107) mmol/L Carbon Dioxide 26 (21-32) mmol/L Anion Gap 7 (3-11) BUN 16 (6-23) mg/dl Creatinine 0.70 (0.6-1.4) mg/dl Est Cr Clr Drug Dosing Not Reportable Est GFR ( Amer) 140.7 ml/min Est GFR (Non-Af Amer) 121.4 ml/min BUN/Creatinine Ratio 22.9 H (10-20) Glucose 418 H* (70-99(Fasting)) mg/dl Estimat Average Glucose mg/dl Hemoglobin A1c (4.5-5.6) % Calcium 8.9 (8.6-10.3) mg/dl Phosphorus 3.0 (2.5-4.9) mg/dl Magnesium 1.9 (1.7-2.4) mg/dl Total Bilirubin 1.3 H (0.2-1.0) mg/dl AST 26 (13-39) U/L ALT 50 (7-52) U/L Alkaline Phosphatase 87 (34-104) U/L Troponin I High Sens 46.2 H (0-20) pg/ml Total Protein 7.5 (6.0-8.3) gm/dl Albumin 4.3 (3.4-5.0) gm/dl Globulin 3.2 (2.5-4.0) gm/dl Albumin/Globulin Ratio 1.3 (0.9-2) Triglycerides (0-150) mg/dl Cholesterol (0-200) mg/dl LDL Cholesterol, Calc mg/dl VLDL Cholesterol, Calc (0-30) mg/dl HDL Cholesterol mg/dl Cholesterol/HDL Ratio (0-5) Lipase 56 (11-82) U/L 02/18/23 02/18/23 02/18/23 Range/Units 08:32 08:32 11:50 WBC (4.8-10.8) K/ul RBC (4.70-6.10) M/uL Hgb (14.0-18.0) g/dl Hct (42.0-52.0) % MCV (80.0-100.0) fL MCH (25.0-34.0) pg MCHC (32.0-36.0) g/dL RDW Std Deviation (36.4-46.3) fL RDW Coeff of Lam[place] (11.5-14.5) % Plt Count (130-400) K/uL MPV (9.4-12.4) fL Immature Gran % (Auto) % Neut % (Auto) % Lymph % (Auto) % [place] % (Auto) % Eos % (Auto) % Baso % (Auto) % Neut # (Auto) (1.40-6.50) K/uL Lymph # (Auto) (1.20-3.40) K/uL [place] # (Auto) (0.11-0.59) K/uL Eos # (Auto) (0.00-0.50) K/uL Baso # (Auto) (0.00-0.20) K/uL Immature Gran # (Auto) (0.01-0.20) K/uL PT (9.0-12.0) Seconds INR (0.9-1.1) APTT 25.5 (21.0-31.0) Seconds PTT Ratio 0.9 Sodium (136-145) mmol/L Potassium (3.5-5.1) mmol/L Chloride (98-107) mmol/L Carbon Dioxide (21-32) mmol/L Anion Gap (3-11) BUN (6-23) mg/dl Creatinine (0.6-1.4) mg/dl Est Cr Clr Drug Dosing Est GFR ( Amer) ml/min Est GFR (Non-Af Amer) ml/min BUN/Creatinine Ratio (10-20) Glucose (70-99(Fasting)) mg/dl Estimat Average Glucose 306 mg/dl Hemoglobin A1c 12.3 H (4.5-5.6) % Calcium (8.6-10.3) mg/dl Phosphorus (2.5-4.9) mg/dl Magnesium (1.7-2.4) mg/dl Total Bilirubin (0.2-1.0) mg/dl AST (13-39) U/L ALT (7-52) U/L Alkaline Phosphatase (34-104) U/L Troponin I High Sens 6386.8 H* D (0-20) pg/ml Total Protein (6.0-8.3) gm/dl Albumin (3.4-5.0) gm/dl Globulin (2.5-4.0) gm/dl Albumin/Globulin Ratio (0.9-2) Triglycerides 291 H (0-150) mg/dl Cholesterol 177 (0-200) mg/dl LDL Cholesterol, Calc 88 mg/dl VLDL Cholesterol, Calc 58 H (0-30) mg/dl HDL Cholesterol 31 mg/dl Cholesterol/HDL Ratio 5.7 H (0-5) Lipase (11-82) U/L Administered Medications Acetaminophen (Acetaminophen 325 Mg Tab) 650 mg PO Q4H PRN PRN Reason: Pain or Fever Stop: 03/20/23 13:36 Last Admin: 02/18/23 20:28 Dose: 650 mg Documented By: KRT Atorvastatin Calcium (Atorvastatin 40 Mg Tab) 40 mg PO [facility] Stop: 03/20/23 14:29 Last Admin: 02/18/23 16:12 Dose: 40 mg Documented By: DTT Heparin Sodium/Dextrose (Heparin Sodium/Dextrose) 25,000 units in 500 mls @ 20 mls/hr IV .Q24H [facility]; Protocol Stop: 03/20/23 13:44 Last Admin: 02/18/23 13:37 Dose: 1,000 units/hr, 20 mls/hr Documented By: FRED Co-signed By: CESAR Insulin Aspart (Insulin Aspart Per Unit Charge) 0 units SC ACHS [facility] Stop: 03/20/23 16:29 Last Admin: 02/18/23 22:19 Dose: 8 units Documented By: SAIMA Co-signed By: VANIA Admin: 02/18/23 17:23 Dose: 17 units Documented By: DTT Co-signed By: CAROLINA Insulin Glargine (Lantus Per Unit Charge) 0 units SQ BID [facility]; Protocol Stop: 03/20/23 14:59 Last Admin: 02/18/23 22:18 Dose: 12 units Documented By: KRT Co-signed By: VANIA Admin: 02/18/23 16:12 Dose: 12 units Documented By: JORDAN Co-signed By: SMITH Lisinopril (Lisinopril 10 Mg Tab) 10 mg PO [facility] Stop: 03/20/23 14:29 Last Admin: 02/18/23 16:12 Dose: 10 mg Documented By: DTT Metoprolol Succinate (Metoprolol Succ 25mg Ext Rel Tab) 12.5 mg PO [facility] Stop: 03/20/23 14:29 Last Admin: 02/18/23 16:12 Dose: 12.5 mg Documented By: JORDAN Nitroglycerin (Nitroglycerin 2% Ointment 30gm Tube) 1 inch EXT Q6H [place] Stop: 03/20/23 15:29 Last Admin: 02/18/23 22:48 Dose: Not Given Documented By: Admin: 02/18/23 16:12 Dose: 1 inch Documented By: JORDAN Discontinued Medications Aspirin (Aspirin Chew 324 Mg) 324 mg PO NOW STA Stop: 02/18/23 13:23 Last Admin: 02/18/23 13:40 Dose: 324 mg Documented By: FRED Dexamethasone Sodium Phosphate (DexamethasonePf 10 Mg/Ml Vial) 10 mg IV NOW ONE Stop: 02/18/23 09:37 Last Admin: 02/18/23 09:46 Dose: 10 mg Documented By: FRED Heparin Sodium (Porcine) (Heparin Sod (Porcine) 1000 Unit/Ml) 1 units IV NOW ONE Stop: 02/18/23 13:40 Last Admin: 02/18/23 13:37 Dose: 4,000 units Documented By: FRED Co-signed By: CESAR Heparin Sodium (Porcine) (Heparin Sod (Porcine) 1000 Unit/Ml) 4,000 units IV NOW ONE Stop: 02/18/23 14:01 Last Admin: 02/18/23 13:57 Dose: Not Given Documented By: FRED Heparin Sodium/Dextrose (Heparin Iv Adult Wt-Based Low-Dose With Bolus Protocol) 1 each IV NOW STA; Protocol Stop: 02/18/23 13:23 Last Admin: 02/18/23 13:52 Dose: Not Given Documented By: FRED Sodium Chloride (Nss) 1,000 mls @ 999 mls/hr IV .Q1H1M ONE Stop: 02/18/23 10:36 Last Infusion: 02/18/23 10:47 Dose: 0 mls/hr Documented By: Admin: 02/18/23 09:46 Dose: 999 mls/hr Documented By: FRED Acetaminophen (Ofirmev) 1,000 mg in 100 mls @ 400 mls/hr IV NOW STA Stop: 02/18/23 09:50 Last Infusion: 02/18/23 10:02 Dose: 0 mls/hr Documented By: Admin: 02/18/23 09:46 Dose: 400 mls/hr Documented By: MES Ioversol (Optiray 320 500ml) 113 ml IV ONCE ONE Stop: 02/18/23 10:42 Last Admin: 02/18/23 10:41 Dose: 113 ml Documented By: KEANU Ketorolac Tromethamine (Ketorolac Tromethamine 15 Mg/Ml Vial) 15 mg IV NOW STA Stop: 02/18/23 09:37 Last Admin: 02/18/23 09:46 Dose: 15 mg Documented By: FRED Imaging Data Radiologist's Impression: Chest CTA 02/18/23 09:35 CT ANGIOGRAM OF THE CHEST CLINICAL HISTORY: Atypical chest pain. Dyspnea. COMPARISON STUDY: Chest x-ray dated 02/18/2023. Chest CT dated 02/15/2022. TECHNIQUE: Following the IV administration of 113 cc of Optiray 320, CT angiogram of the chest was performed from the upper abdomen to the thoracic inlet utilizing the pulmonary embolus protocol. Images are reviewed in the axial, sagittal, and coronal planes. 3-D MIPS images are created and assessed. IV contrast was administered without complication. A dose lowering technique was utilized adhering to the principles of ALARA. CT DOSE: 785.2 mGy.cm FINDINGS: Thyroid: Imaged portions of the thyroid gland are normal in size and attenuation. Thoracic aorta: The thoracic aorta is normal in caliber and demonstrates bovine variant arch anatomy. No dissection is seen. Pulmonary vasculature: The pulmonary trunk is normal in caliber. There are no filling defects identified in main, lobar, or segmental pulmonary branches to suggest acute pulmonary embolus. There is trace chronic pulmonary embolus within the right lower lobe pulmonary artery seen on image #85. Heart: The heart is top normal in size and without pericardial effusion. There is advanced coronary artery atherosclerosis. Lungs and pleural spaces: Evaluation of the lung parenchyma is degraded by motion artifact. There is mild bibasilar scarring/atelectasis. No airspace consolidation or pleural effusion is identified. The trachea and central airways appear clear. A calcified granuloma is seen in the left lower lobe. Mediastinum: There is no mediastinal lymphadenopathy. Beryl: Clear. Axillae: There is no axillary lymphadenopathy. Upper abdomen: The spleen is enlarged, measuring 16 cm in length. Partially visualized upper abdominal viscera is otherwise grossly unremarkable. Skeletal structures: No lytic or blastic bony lesions are seen. IMPRESSION: 1. There is no evidence of acute pulmonary embolus in the main, lobar, or segmental pulmonary arteries. 2. There is trace chronic pulmonary embolus within the right lower lobe pulmonary artery. 3. There is no airspace consolidation or pleural effusion. 4. Age advanced coronary artery atherosclerosis. Consider follow up with cardiology. 5. Splenomegaly. 6. Additional findings as above. ACT 112: Positive. There are findings on this exam that require communication between the performing entity and the patient following Patient Test Result Information Act ([place] Act 112) guidelines. Electronically signed by: Shayne Vora M.D. 02/18/2023 11:10 AM Discharge Plan Visit Data Chief Complaint: Chest Pain Stated Complaint: SOB, CHEST PAIN, R ARM PAIN ED Provider: Steven Orellana Discharge Problem: NSTEMI (non-ST elevated myocardial infarction), HTN (hypertension), Elevated troponin, Coronary artery disease, Noncompliance with medication regimen Patient Disposition: Admitted As Inpatient Discharge Instructions Interventions: ED Discharge Assessment Last Done: 02/18/23 14:47
--- NOTE | 2023-02-18 08:53 | XRay Report ---
SINGLE VIEW CHEST CLINICAL HISTORY: Atypical chest pain. FINDINGS: 2 AP, portable, upright chest radiographs are correlated with chest CT dated 02/15/2022. Th e examination is degraded by portable technique and apical lordotic positioning. The cardiomediastina l silhouette is unremarkable. There are low lung volumes with bibasilar atelectasis. The lungs and pl eural spaces are otherwise clear. No pneumothorax is seen. The bony thorax is grossly intact. IMPRESSION: No active disease in the chest. ACT 112: Negative or not required by law. Electronically signed by: Shayne Vora M.D. 02/18/2023 8:51 AM
[2023-02-18 09:06] LABS: Basophils # (auto) 0.04 K/uL (0.00-0.20); Basophils % (auto) 0.6 %; Eosinophils % (auto) 1.6 %; Hematocrit (blood only) 46.3 % (42.0-52.0); Hemoglobin 16.4 g/dl (14.0-18.0); Immature Granulocytes # (auto) 0.04 K/uL (0.01-0.20); Immature Granulocytes % (auto) 0.6 %; Lymphocytes % (auto) 20.5 %; Mean Corpuscular Hemoglobin 28.4 pg (25.0-34.0); Mean Corpuscular Hgb Conc 35.4 g/dL (32.0-36.0); Mean Corpuscular Volume 80.2 fL (80.0-100.0); Mean Platelet Volume 10.6 fL (9.4-12.4); Monocytes # (auto) 0.48 K/uL (0.11-0.59); Monocytes % (auto) 7.6 %; Neutrophils # (auto) 4.39 K/uL (1.40-6.50); Neutrophils % (auto) 69.1 %; Platelet Count 187 K/uL (130-400); RDW Coefficient of Variation 12.1 % (11.5-14.5); RDW Standard Deviation 34.7 fL (36.4-46.3); Red Blood Count 5.77 M/uL (4.70-6.10); White Blood Count 6.35 K/ul (4.8-10.8)
[2023-02-18 09:30] LABS: Alanine Aminotransferase 50 U/L (7-52); Albumin Globulin Ratio 1.3 (0.9-2); Albumin Level 4.3 gm/dl (3.4-5.0); Alkaline Phosphatase 87 U/L (34-104); Anion Gap 7 (3-11); BUN Creatinine Ratio 22.9 (10-20); Bilirubin,Total 1.3 mg/dl (0.2-1.0); Blood Urea Nitrogen 16 mg/dl (6-23); Calcium 8.9 mg/dl (8.6-10.3); Carbon Dioxide 26 mmol/L (21-32); Chloride 100 mmol/L (98-107); Est GFR (African American) 140.7 ml/min; Est GFR (Non-African American) 121.4 ml/min; Globulin 3.2 gm/dl (2.5-4.0); Lipase 56 U/L (11-82); Magnesium 1.9 mg/dl (1.7-2.4); Potassium 3.9 mmol/L (3.5-5.1); Sodium 133 mmol/L (136-145); Total Protein 7.5 gm/dl (6.0-8.3)
[2023-02-18 09:36] LABS: Aspartate Aminotransferase 26 U/L (13-39)
[2023-02-18] MEDS ORDERED: dexAMETHasone**PF** 10 MG/ML VIAL IV ONE (09:36)
[2023-02-18] MEDS ORDERED: KETOROLAC TROMETHAMINE 15 MG/ML VIAL IV STA (09:36)
[2023-02-18] MEDS ORDERED: ACETAMINOPHEN 1,000 MG/100 ML VIAL IV STA (09:36)
[2023-02-18] MEDS ORDERED: SODIUM CHLORIDE 0.9% 1,000 ML IV ONE (09:36)
[2023-02-18 09:37] LABS: Glucose 418 mg/dl (70-99(Fasting))
[2023-02-18] MEDS ORDERED: OPTIRAY 320 500ml IV ONE (10:41)
[2023-02-18 11:00] LABS: Troponin I High Sensitivity 46.2 pg/ml (0-20)
[2023-02-18 11:04] LABS: Adenovirus PCR Not Detected (NotDetected); Bordetella parapertussis PCR Not Detected (NotDetected); Bordetella pertussis PCR Not Detected (NotDetected); Chlamydia pneumoniae PCR Not Detected (NotDetected); Coronavirus 229E PCR Not Detected (NotDetected); Coronavirus CoV-2 (COVID19)PCR Not Detected (NotDetected); Coronavirus HKU1 PCR Not Detected (NotDetected); Coronavirus NL63 PCR Not Detected (NotDetected); Coronavirus OC43PCR Not Detected (NotDetected); Human Metapneumovirus PCR Not Detected (NotDetected); Influenza A PCR Not Detected (NotDetected); Influenza B PCR Not Detected (NotDetected); Mycoplasma pneumoniae PCR Not Detected (NotDetected); Parainfluenza Virus 1 PCR Not Detected (NotDetected); Parainfluenza Virus 2 PCR Not Detected (NotDetected); Parainfluenza Virus 3 PCR Not Detected (NotDetected); Parainfluenza Virus 4 PCR Not Detected (NotDetected); Respiratory Syncytial VirusPCR Not Detected (NotDetected); Rhinovirus/Enterovirus PCR Not Detected (NotDetected)
--- NOTE | 2023-02-18 11:11 | CT Scan Report ---
CT ANGIOGRAM OF THE CHEST CLINICAL HISTORY: Atypical chest pain. Dyspnea. COMPARISON STUDY: Chest x-ray dated 02/18/2023. Chest CT dated 02/15/2022. TECHNIQUE: Following the IV administration of 113 cc of Optiray 320, CT angiogram of the chest was pe rformed from the upper abdomen to the thoracic inlet utilizing the pulmonary embolus protocol. Images are reviewed in the axial, sagittal, and coronal planes. 3-D MIPS images are created and assessed. I V contrast was administered without complication. A dose lowering technique was utilized adhering to the principles of ALARA. CT DOSE: 785.2 mGy.cm FINDINGS: Thyroid: Imaged portions of the thyroid gland are normal in size and attenuation. Thoracic aorta: The thoracic aorta is normal in caliber and demonstrates bovine variant arch anatomy. No dissection is seen. Pulmonary vasculature: The pulmonary trunk is normal in caliber. There are no filling defects identif ied in main, lobar, or segmental pulmonary branches to suggest acute pulmonary embolus. There is trac e chronic pulmonary embolus within the right lower lobe pulmonary artery seen on image #85. Heart: The heart is top normal in size and without pericardial effusion. There is advanced coronary a rtery atherosclerosis. Lungs and pleural spaces: Evaluation of the lung parenchyma is degraded by motion artifact. There is mild bibasilar scarring/atelectasis. No airspace consolidation or pleural effusion is identified. The trachea and central airways appear clear. A calcified granuloma is seen in the left lower lobe. Mediastinum: There is no mediastinal lymphadenopathy. Beryl: Clear. Axillae: There is no axillary lymphadenopathy. Upper abdomen: The spleen is enlarged, measuring 16 cm in length. Partially visualized upper abdomina l viscera is otherwise grossly unremarkable. Skeletal structures: No lytic or blastic bony lesions are seen. IMPRESSION: 1. There is no evidence of acute pulmonary embolus in the main, lobar, or segmental pulmonary arterie s. 2. There is trace chronic pulmonary embolus within the right lower lobe pulmonary artery. 3. There is no airspace consolidation or pleural effusion. 4. Age advanced coronary artery atherosclerosis. Consider follow up with cardiology. 5. Splenomegaly. 6. Additional findings as above. ACT 112: Positive. There are findings on this exam that require communication between the performing entity and the patient following Patient Test Result Information Act ([place] Act 112) guidelines. Electronically signed by: Shayne Vora M.D. 02/18/2023 11:10 AM
--- NOTE | 2023-02-18 13:17 | Electrocardiogram Report ---
Test Reason : Blood Pressure : / mmHG Vent. Rate : 081 BPM Atrial Rate : 081 BPM P-R Int : 170 ms QRS Dur : 098 ms QT Int : 336 ms P-R-T Axes : 035 065 -26 degrees QTc Int : 390 ms Normal sinus rhythm T wave abnormality, consider inferior ischemia Abnormal ECG When compared with ECG of 15-FEB-2022 14:19, Inverted T waves have replaced nonspecific T wave abnormality in Inferior leads Nonspecific T wave abnormality now evident in Lateral leads Confirmed by Kwan Early ([id number]) on 02/18/2023 1:17:33 PM Referred By: Confirmed By:Fabricio Early
[2023-02-18] MEDS ORDERED: Heparin IV Adult Wt-Based Low-Dose WITH Bolus Protocol IV STA (13:22)
[2023-02-18] MEDS ORDERED: ASPIRIN CHEW 324 MG PO STA (13:22)
[2023-02-18] MEDS ORDERED: ACETAMINOPHEN 325 MG TAB PO PRN (13:37)
[2023-02-18] MEDS ORDERED: ALUMINUM/MAGNESIUM SUSP 30 ML UDC PO PRN (13:37)
[2023-02-18] MEDS: HEPARIN SODIUM/DEXTROSE 25,000 UNITS/500 ML BAG IV SCH (13:37)
[2023-02-18] MEDS ORDERED: POLYETHYLENE (MIRALAX) 17 GM PACK PO PRN (13:37)
[2023-02-18] MEDS ORDERED: MAGNESIUM HYDROXIDE SUSP 30 ML UDC PO PRN (13:37)
[2023-02-18] MEDS ORDERED: ONDANSETRON INJ 2 MG/ML 2 ML VIAL IV PRN (13:37)
[2023-02-18] MEDS ORDERED: HEPARIN SOD (PORCINE) 1000 UNIT/ML IV ONE ×3 (13:39→23:30)
--- NOTE | 2023-02-18 13:52 | History & Physical Report ---
Date of Service February 18, 2023 Assessment & Plan (1) NSTEMI (non-ST elevated myocardial infarction): (2) Coronary artery disease: (3) Psoriatic arthritis: (4) HTN (hypertension): (5) Diabetes: (6) Depression with anxiety: Plan 38-year-old male presents with complaints of chest pain that started this morning that started at 0530 when he was taking his dogs outside. He reports SOB and one episode of vomiting with the chest pain. The pain lasted a few hours. He reported it as a stabbing chest pain. and his shoulders resulting in him not sleeping well. Reportedly has had an AMI approximately 5 years ago s/p stent x1 and was on Brilinta for a few years. While chest CTA negative for PE; Age advanced coronary artery atherosclerosis noted. BioFire negative. chest x-ray negative for acute cardiopulmonary disease. Last echocardiogram 03/30/2022 at [facility]. Normal LV size. EF 60 to 65% with normal wall motion. No significant valvular dysfunction apparent. Was taking Lisinopril and Metoprolol in the past but he stopped taking them due to how they 'affected his depression' an insurance complications. Has not established care with Cards locally. Additional past medical history includes HTN, depression, CAD status post AMI with stent x1 2017, DM 2 (was on insulin in the past), psoriatic arthritis. H/O Lymes disease diagnosed when he was 6 years old; chronic titer. Patient reports that he has stopped taking all of his medications 6 months ago, including Humira and anti-hypertensives due to insurance complications. Stopped smoking tobacco when he had his initial AMI. Denies alcohol; uses medical marijuana for psoriatic arthritis. No ST elevation noted on ECG; T wave inversion in leads II, III and aVF which appears to be new from 2021. In ED received ASA 324 mg, IVF x1 L, ketorolac for pain. Pt denies JEAN, dizziness, visual or auditory changes, abdominal pain or tenderness, dysuria, recent falls or trauma. Surgical history: H/o rib resection with vein revision s/p RUE DVT last year at the [facility]. He recently moved here from [place] and has not established with a co teacher here locally. Patient appears to have NSTEMI; will place on heparin drip for now, obtain echo, keep NPO, pending cardiology consultation. Will trend troponin and start reduced doses of Metoprolol and Lisinopril along with atorvastatin. Will discuss with case management regarding insurance issues and medical assistance with medications. NSTEMI: Acute uncontrolled We will place in PCU for closer monitoring Initial Trope 42 --> [id number]; trend ECG with low T wave changes leads III/aVF new from 2021 Chest CTA: Negative for PE; Age advanced coronary artery atherosclerosis Stopped taking medication 6 months ago including antihypertensives; metoprolol and lisinopril Last ECHO 04/12; [facility]. Normal LV size. EF 60 to 65% with normal wall motion. No significant valvular dysfunction apparent; obtain repeat ECHO here Started on heparin drip in ED; continue pending Cards eval Quit smoking in 2018 IVF times 1L in ED ASA 324 mg; continue ASA 81 mg daily Check lipid panel in AM; for now start Atorvastatin 40 mg daily. Ketorolac for pain; continue as needed N.p.o. for now pending cardiology consultation Start Metoprolol and Lisinopril at reduced dosing since he has been off of both for approximately 6 months. CAD: Acute uncontrolled Takes baby aspirin; continue Previous AMI s/p stent x 1 2017 at [facility] [place] in [place] Chest CTA: Negative for PE; Age advanced coronary artery atherosclerosis H/O rib resection: Chronic stable 2021; with vein revision s/p RUE DVT last year at the [facility] Was on Eliquis for 6 months Psoriatic arthritis: Chronic stable Historically takes Humira; has not taken past 6 months Does not follow with any specialists locally HTN: Chronic stable cysts Historically takes metoprolol 25 mg daily and lisinopril 20 mg daily; has not taken past 6 months due to insurance issues Reportedly per patient; both of those medications cause concerns with his ADHD. Diabetes Mellitus, Type Two: Acute uncontrolled Serum glucose 418--> [address] on SSI ACHS while here Last A1c 02/10 6.1; will check repeat one here. ADHD: Depression with anxiety: Chronic stable Was taking Fluoxetine but stopped 6 months ago due to insurance complications; will restart Disposition: PCP: Dr. Richardson CODE STATUS: Full code VTE prophylaxis: On Heparin drip Discharge needs: Case management notified for complex needs regarding medication concerns; apply for MA I spent a total of 88 minutes coordinating, documenting, and providing care for this patient excluding time spent in the performance of separately billed Scrapblog es. All of the aforementioned completed while collaborating with the assigned attending physician for a full treatment plan. Please see their addendum for further details. History of Present Illness Chief Complaint: Chest pain Primary Care Provider: Dr. Richardson Mr. Reyes is a 38-year-old male that presents to the ED with complaints of chest pain that started this morning that started at 0530 when he was taking his dogs outside. He reports SOB and one episode of vomiting with the chest pain. The pain lasted a few hours. He reported it as a stabbing chest pain. and his shoulders resulting in him not sleeping well. Reportedly has had an AMI in approximately 5 years ago s/p stent x1 and was on Brilinta for a few years along with While chest CTA negative for PE; moderate progressive atherosclerosis noted. BioFire negative chest CTA negative for PE and chest x-ray negative for acute cardiopulmonary disease. Last echocardiogram 03/30/2022 at [facility]. Normal LV size. EF 60 to 65% with normal wall motion. No significant valvular dysfunction apparent. Was taking Lisinopril and Metoprolol in the past but he stopped taking them due to how they 'affected his depression'. Additional past medical history includes HTN, depression, CAD status post AMI with stent x1 2017, DM 2 (was on insulin in the past), psoriatic arthritis. H/O Lymes disease diagnosed when he was 6 years old; chronic titer. Patient reports that he has stopped taking all of his medications 6 months ago, including Humira and anti-hypertensives due to insurance complications. Stopped smoking tobacco when he had his initial AMI. Denies alcohol; uses medical marijuana for psoriatic arthritis. No ST elevation noted on ECG; T wave inversion in leads III and aVF which appears to be new from 2021. In ED received ASA 324 mg, IVF x1 L, ketorolac for pain. Pt denies JEAN, dizziness, visual or auditory changes, abdominal pain or tenderness, dysuria, recent falls or trauma. Surgical history: H/o rib resection with vein revision s/p RUE DVT last year at the [facility]. He recently moved here from [place] and has not established with a co teacher here locally. Patient presenting with chest pain; will place on heparin drip for now, obtain echo, pending cardiology consultation. Will trend troponin and keep n.p.o. for now with pain and symptom management. Will discuss with case management regarding insurance issues and medical assistance with medications. Patient will be admitted for further evaluation and management. Please see A/P for further details. Allergies Allergy/AdvReac Type Severity Reaction Status Date / Time No Known Allergies Allergy Unverified 02/15/22 20:23 Home Medications Medication Instructions Recorded Confirmed Type aspirin 81 mg tablet,delayed 81 mg PO QAM 02/15/22 02/18/23 History release multivitamin with minerals-folic 1 tab PO QAM 02/15/22 02/18/23 History acid 200 mcg chewable tablet (Multivitamin Gummies) fluoxetine 60 mg tablet 60 mg DAILY 02/18/23 02/18/23 History lisinopril 20 mg tablet 20 mg DAILY 02/18/23 02/18/23 History Past Med/Surg History Medical History Adalimumab (Humira) long-term use Appendicitis Coronary artery disease Diabetes NSTEMI (non-ST elevated myocardial infarction) Psoriatic arthritis Surgical History H/O resection of rib Stented coronary artery Family History Other Coronary heart disease Depression Family history non-contributory Social History Smoking Status: Never smoker Hx Alcohol Use: No Hx Substance Use: No Preferred Language: [place] Communication Ability: Effective Bootmaker Required: No Beliefs That Will Affect Care: None Current Living Situation: Family Feels Safe at Home: Yes Safety Concerns: Feels Safe At This Time Assistive Devices: None Review of Systems Review of Systems: Neuro: (-) Falls, trauma, slurred speech HEENT: (-) JEAN, dizziness, dysphagia, visual or auditory changes CV: (+) CP, palpitations, (-) swelling Resp: (-) SOB GI: (-) appetite changes, N/V/D, bowel changes : (-) urinary changes Skin: (-) rashes Psych: (-) anxiety, depression Physical Exam Physical Exam: See Dr. Lundberg's addendum for further physical examination details Results & Data Results & Data Vital Signs (Past 12 Hours) Vital Signs Temp Pulse Pulse Resp BP BP Pulse Ox 02/18/23 13:20 86 18 156/108 H 97 02/18/23 12:36 85 02/18/23 11:01 86 19 171/115 H 97 02/18/23 10:12 88 19 149/98 H 95 02/18/23 08:40 95 02/18/23 08:40 95 H 20 177/120 H 96 02/18/23 08:40 02/18/23 08:24 86 02/18/23 08:22 36.9 C 84 17 182/114 H 97 O2 Del Method O2 Flow Rate 02/18/23 13:20 Room Air 02/18/23 12:36 02/18/23 11:01 Room Air 02/18/23 10:12 Room Air 02/18/23 08:40 Room Air 02/18/23 08:40 Room Air 02/18/23 08:40 Room Air 95 02/18/23 08:24 02/18/23 08:22 Room Air Laboratory Results Short CBC 02/18/23 Range/Units 08:32 WBC 6.35 (4.8-10.8) K/ul Hgb 16.4 (14.0-18.0) g/dl Hct 46.3 (42.0-52.0) % Plt Count 187 (130-400) K/uL BMP 02/18/23 08:32 Sodium 133 L Potassium 3.9 Chloride 100 Carbon Dioxide 26 BUN 16 Creatinine 0.70 Glucose 418 H* Calcium 8.9 Liver Function 02/18/23 Range/Units 08:32 Total Bilirubin 1.3 H (0.2-1.0) mg/dl AST 26 (13-39) U/L ALT 50 (7-52) U/L Alkaline Phosphatase 87 (34-104) U/L Albumin 4.3 (3.4-5.0) gm/dl Diagnostic Findings Chest X-Ray 02/18/23 08:16 SINGLE VIEW CHEST CLINICAL HISTORY: Atypical chest pain. FINDINGS: 2 AP, portable, upright chest radiographs are correlated with chest CT dated 02/15/2022. The examination is degraded by portable technique and apical lordotic positioning. The cardiomediastinal silhouette is unremarkable. There are low lung volumes with bibasilar atelectasis. The lungs and pleural spaces are otherwise clear. No pneumothorax is seen. The bony thorax is grossly intact. IMPRESSION: No active disease in the chest. ACT 112: Negative or not required by law. Electronically signed by: Shayne Vora M.D. 02/18/2023 8:51 AM Chest CTA 02/18/23 09:35 CT ANGIOGRAM OF THE CHEST CLINICAL HISTORY: Atypical chest pain. Dyspnea. COMPARISON STUDY: Chest x-ray dated 02/18/2023. Chest CT dated 02/15/2022. TECHNIQUE: Following the IV administration of 113 cc of Optiray 320, CT angiogram of the chest was performed from the upper abdomen to the thoracic inlet utilizing the pulmonary embolus protocol. Images are reviewed in the axial, sagittal, and coronal planes. 3-D MIPS images are created and assessed. IV contrast was administered without complication. A dose lowering technique was utilized adhering to the principles of ALARA. CT DOSE: 785.2 mGy.cm FINDINGS: Thyroid: Imaged portions of the thyroid gland are normal in size and attenuation. Thoracic aorta: The thoracic aorta is normal in caliber and demonstrates bovine variant arch anatomy. No dissection is seen. Pulmonary vasculature: The pulmonary trunk is normal in caliber. There are no filling defects identified in main, lobar, or segmental pulmonary branches to suggest acute pulmonary embolus. There is trace chronic pulmonary embolus within the right lower lobe pulmonary artery seen on image #85. Heart: The heart is top normal in size and without pericardial effusion. There is advanced coronary artery atherosclerosis. Lungs and pleural spaces: Evaluation of the lung parenchyma is degraded by motion artifact. There is mild bibasilar scarring/atelectasis. No airspace consolidation or pleural effusion is identified. The trachea and central airways appear clear. A calcified granuloma is seen in the left lower lobe. Mediastinum: There is no mediastinal lymphadenopathy. Beryl: Clear. Axillae: There is no axillary lymphadenopathy. Upper abdomen: The spleen is enlarged, measuring 16 cm in length. Partially visualized upper abdominal viscera is otherwise grossly unremarkable. Skeletal structures: No lytic or blastic bony lesions are seen. IMPRESSION: 1. There is no evidence of acute pulmonary embolus in the main, lobar, or segmental pulmonary arteries. 2. There is trace chronic pulmonary embolus within the right lower lobe pulmonary artery. 3. There is no airspace consolidation or pleural effusion. 4. Age advanced coronary artery atherosclerosis. Consider follow up with cardiology. 5. Splenomegaly. 6. Additional findings as above. ACT 112: Positive. There are findings on this exam that require communication between the performing entity and the patient following Patient Test Result Information Act ([place] Act 112) guidelines. Electronically signed by: Shayne Vora M.D. 02/18/2023 11:10 AM Code Status & VTE Plan Code Status Full code in the event of cardiac or respiratory arrest VTE Prophylaxis Plan VTE Prophylaxis will be ordered: Yes Supervising Physician Co-Signing Physician Notes Patient seen and examined Presented with Chest pain that started at 5:30am while letting the dogs out, sharp, across chest, referred to right shoulder, associated with some neck stiffness Pain lasted a few hrs until here in the hospital Had acute TN about 5 years ago requiring 1 stent and was on brilinta for a few years He was on statin in the past which he stated how it affected his depression'. Stated he was on lisinopril and metoprolol and was stopped because of nausea,etc but could not elucidate more about it He stopped taking all meds sometime ago after losing insurance and [place] and has not established with a co teacher here. Currently chest pain free. On exam, General: Obese in no distress Eyes: PERRL, conjunctivae normal, not pale, anicteric sclerae, EOM intact bilaterally ENMT: External ear and nose normal, oropharynx normal Respiratory: Normal respiratory effort, no respiratory distress, lungs clear to auscultation, no crackles and no wheezes Cardiovascular: RRR S1 S2 Chest (Breasts): No chest wall tenderness Gastrointestinal (Abdomen): Abdomen is not distended, soft, non-tender to palpation, no guarding, no palpable hepatosplenomegaly, normal bowel sounds Musculoskeletal: No pedal edema Neurologic: Alert and oriented x 3, No focal weakness, sensation grossly intact Psychiatric: Euthymic affect Labs notable for glucose of 418, Troponin of 46.2 increased to 6386.8 Chest x-ray did not show any acute abnormalities CT angiogram of the chest did not show any acute PE but noted a trace chronic PE within the right lower lobe pulmonary artery, age advanced coronary artery atherosclerosis. EKG noted T wave inversion in inferior leads. Some T wave abnormalities in lateral lead. NSTEMI Hypertension Got aspirin 324 in ER. Continue aspirin daily Was on lisinopril 20mg and metoprolol succinate 25mg daily in the past but had stopped a long time ago as stated earlier Start lisinopril at 10 mg daily and metoprolol tartarate 12.5mg bid and monitor. May need to be adjusted Start atorvastatin Trend trop TTE Cards c/s Insulin sliding scale Check HbA1c, lipid panel CM consult to help with insurance/medical insurance issues. Patient cannot afford meds/insulin at this time.
[2023-02-18] MEDS ORDERED: GLUCAGON FOR INJ 1 MG VIAL SQ PRN (14:23)
[2023-02-18] MEDS ORDERED: GLUCOSE 10 TAB/TUBE PO PRN (14:23)
[2023-02-18] MEDS ORDERED: GLUCOSE 40% GEL 15 GM TUBE PO PRN (14:23)
[2023-02-18] MEDS ORDERED: PHARMACY GLYCEMIC MGMT CONSULT PRN (14:23)
[2023-02-18] MEDS ORDERED: DEXTROSE 50% 50 ML SYRINGE IV PRN (14:23)
[2023-02-18] MEDS ORDERED: CARBOHYDRATES FOR HYPOGLYCEMIA PO PRN (14:23)
[2023-02-18] MEDS ORDERED: METOPROLOL SUCC 25MG EXT REL TAB PO SCH (14:30)
--- NOTE | 2023-02-18 14:52 | Pharmacy Report ---
Pharmacy Glycemic Short Note 2 - Date of Service February 18, 2023 - Glycemic Short BSG Results (Last 24 hours): 02/18/23 02/18/23 08:32 13:43 Glucose 418 H* POC Glucose 379 H* OUTPATIENT ANTIDIABETIC REGIMEN: * Jardiance 25 mg PO Daily * Ozempic 0.5mg SQ Weekly * Insulin Glargine 20 units SQ BID * A1c 6.6% 02/16/22, updated A1c ordered ASSESSMENT: * 38 year old male presented with CP, NSTEMI, Type 2 DM, hyperglycemia. Patient also received Dexamethasone 10mg IV x1 in ER this morning contributing to hyperglycemia. * Patient NPO, begin basal bolus SQ insulin at this time, consider IV dose if BSG not responding to SQ dosing. PLAN FOR INPATIENT GLYCEMIC CONTROL: * Hold outpatient diabetes medications * Basal insulin * Lantus 12 units SQ BID, start NOW, hold for BSG< 180mg/dl * Bolus insulin * NovoLog per scale ACHS or Q6hrs while NPO * Goal Range: Low 110 mg/dL - High 140 mg/dL * Correction Factor: 20 mg/dL/unit * Nutritional / Prandial insulin per carb ratio of 1 unit per 7 grams CHO consumed
[2023-02-18 14:53] LABS: Chol HDL Ratio 5.7 (0-5)
[2023-02-18 14:56] LABS: Partial Thromboplastin Ratio 0.9; Partial Thromboplastin Time 25.5 Seconds (21.0-31.0)
--- NOTE | 2023-02-18 15:13 | Cardiology Consultation ---
Date of Consultation February 18, 2023 Assessment & Plan (1) NSTEMI (non-ST elevated myocardial infarction): (2) Coronary artery disease: (3) HTN (hypertension): (4) Hyperlipidemia: Plan IMPRESSION: 38-year-old male presented to [facility] emergency department due chest pain. Symptoms concerning for unstable angina/NSTEMI Hx of AK in 2018/2018 with PCI of unknown coronary artery-- possibly LAD per the patient. High-sensitivity troponins elevated from 40>>6000 EKG with T wave inversions in inferior leads and echo revealing wall motion abnormality of the septal, anteroseptal, and inferior wall. Patient currently chest pain-free but remains hypertensive. PLAN: Patient will require improved blood pressure control. Agree with restarting metoprolol and lisinopril. Will add Nitropaste for preload reduction. Continue IV heparin and ASA 81 mg daily Continue statin therapy. Keep n.p.o. for possible cardiac catheterization in the morning. Discussed risk vs benefit of procedure- patient agreeable. Avoid NSAIDs/Toradol Case discussed with Dr. East-- will follow. Supervising Physician Co-Signing Physician Notes 38-year-old male with history of coronary disease and stenting to undisclosed vessel in the setting of myocardial infarction at age 32 presents to the ER with recurrent chest discomfort. Reports symptoms identical to prior myocardial infarction. Symptoms lasted several hours and spontaneously resolved during CT of his chest. Currently pain-free. Bedside echocardiogram demonstrates an inferoseptal wall motion abnormality with preserved LV systolic function. No orthopnea, PND, or edema. Admits to noncompliance with all medications for more than 5 months. PE: VSS. GEN: NAD, AAO x3. Heart:Regular rhythm, normal S1-S2. No murmur. Florencia gs: Clear bilateral, no rales, rhonchi, wheeze. Extremities: Palpable radial and femoral pulses. No edema. 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 38-year-old male admitted with NSTEMI. Currently pain-free. ECG without ST elevation. Recommend addition of topical nitrates and intravenous heparin. Continue aspirin, statin, and beta-ry therapy. Risk, benefits, and alternatives to cardiac catheterization discussed. Patient agreeable to proceed. We will plan diagnostic cardiac catheterization in a.m. If he develops recurrent anginal symptoms throughout the night despite addition of medical therapy, an urgent cardiac catheterization will be performed. N.p.o. except medications after midnight in anticipation of procedure. All questions answered to patient's satisfaction. History of Present Illness Reason for Consultation: Chest pain Requesting Physician: Jose hospitalist Attending Physician: Riya Lundberg MD History of Present Illness 38-year-old male presented to [facility] emergency department after experiencing a sharp stabbing chest pain that radiated through his chest into his back and shoulder blades this morning when he was taking his neighbors dog out. He became very short of breath and lightheaded and did vomit. Stated he felt like he was "going to ", symptoms are reminiscent of prior AK--called family member who brought him into the emergency department. Carries a history history of coronary disease/AK in 2017/2018 where a stent was placed to an unknown coronary artery at a hospital in [place]. Patient believes the stent to be in the LAD but is unsure. He was on Brilinta for a period of time but is only on aspirin now. He also notes a history of hypertension and was previously on metoprolol and lisinopril. He is currently going through a divorce and due to insurance complications he has been off all of his medicines except aspirin for the last 5-6 months. Upon entrance to the emergency department patient continued to have chest discomfort up until his CTA of the chest, which was negative for PE. Currently chest pain-free. No shortness of breath or lightheadedness. No further nausea. Has not eaten today, only has been sipping on water. In the ED patient was given 324 mg of aspirin, IV fluids and IV Toradol. High- sensitivity troponins increased from 46.2>>6386.8 and he was started on heparin drip. EKG showing T-wave inversion in inferior leads. Echocardiogram revealed preserved LV systolic function of 55 to 60% with a moderate size septal, anterior septal, inferior wall motion abnormality. Blood pressure remains hypertensive. Metoprolol succinate, lisinopril, and statin also restarted. Former smoker, quit in 2019. Denies alcohol use. Uses medical marijuana for psoriatic arthritis. Notes a strong family history for premature coronary disease with his grandfather passing away suddenly due to an AK. Past medical history: Coronary artery disease status post PCI in the setting of AK in 2018/2018 Hypertension Hyperlipidemia Type II diabetes History of appendicitis History of rib resection complicated by right upper extremity DVT--follows with vascular surgery at [facility], 03/2022 History of Lyme disease Psoriatic arthritis Family history of premature coronary disease Allergies Allergy/AdvReac Type Severity Reaction Status Date / Time No Known Allergies Allergy Unverified 02/15/22 20:23 Home Medications Medication Instructions Recorded Confirmed Type aspirin 81 mg tablet,delayed 81 mg PO QAM 02/15/22 02/18/23 History release multivitamin with minerals-folic 1 tab PO QAM 02/15/22 02/18/23 History acid 200 mcg chewable tablet (Multivitamin Gummies) fluoxetine 60 mg tablet 60 mg DAILY 02/18/23 02/18/23 History lisinopril 20 mg tablet 20 mg DAILY 02/18/23 02/18/23 History Patient History Medical History Adalimumab (Humira) long-term use Appendicitis Coronary artery disease Diabetes NSTEMI (non-ST elevated myocardial infarction) Psoriatic arthritis Surgical History H/O resection of rib Stented coronary artery Family History Other Coronary heart disease Depression Family history non-contributory Social History Smoking Status: Never smoker Hx Alcohol Use: No Hx Substance Use: No Preferred Language: Bulgarian Communication Ability: Effective Water Taxi Operator Required: No Beliefs That Will Affect Care: None Current Living Situation: Family Feels Safe at Home: Yes Safety Concerns: Feels Safe At This Time Assistive Devices: None Review of Systems Review of Systems: All systems reviewed & are unremarkable except as noted in Subjective Physical Exam Constitutional: WD/WN, vitals as above no acute distress Neck: normal visual inspection and trachea midline Respiratory: normal respiratory effort, lungs clear to auscultation no c ough Cardiovascular: RRR, no murmur, no edema Heart Sounds: normal S1 and normal S2; no murmur Vessels: no JVD Extremities: no edema Gastrointestinal (Abdomen): normal bowel sounds, soft, nontender, no hepatosplenomegaly Skin: no rashes, warm and dry Psychiatric: A+Ox3, euthymic affect Results & Data Vital Signs (Past 12 Hours) Vital Signs Temp Pulse Pulse Resp BP BP Pulse Ox 02/18/23 14:01 92 H 19 160/109 H 98 02/18/23 13:44 92 H 97 02/18/23 13:44 97 02/18/23 13:20 86 18 156/108 H 97 02/18/23 12:36 85 02/18/23 11:01 86 19 171/115 H 97 02/18/23 10:12 88 19 149/98 H 95 02/18/23 08:40 95 02/18/23 08:40 95 H 20 177/120 H 96 02/18/23 08:40 02/18/23 08:24 86 02/18/23 08:22 36.9 C 84 17 182/114 H 97 O2 Del Method O2 Flow Rate 02/18/23 14:01 Room Air 02/18/23 13:44 Room Air 02/18/23 13:44 Room Air 02/18/23 13:20 Room Air 02/18/23 12:36 02/18/23 11:01 Room Air 02/18/23 10:12 Room Air 02/18/23 08:40 Room Air 02/18/23 08:40 Room Air 02/18/23 08:40 Room Air 95 02/18/23 08:24 02/18/23 08:22 Room Air Laboratory Results Cardiac Enzymes 02/18/23 02/18/23 Range/Units 08:32 11:50 AST 26 (13-39) U/L Troponin I High Sens 46.2 H 6386.8 H* D (0-20) pg/ml Coagulation 02/18/23 02/18/23 Range/Units 08:32 08:32 PT 11.0 (9.0-12.0) Seconds APTT 25.5 (21.0-31.0) Seconds Lipids 02/18/23 Range/Units 11:50 Triglycerides 291 H (0-150) mg/dl Cholesterol 177 (0-200) mg/dl HDL Cholesterol 31 mg/dl Cholesterol/HDL Ratio 5.7 H (0-5) CBC 02/18/23 Range/Units 08:32 WBC 6.35 (4.8-10.8) K/ul RBC 5.77 (4.70-6.10) M/uL Hgb 16.4 (14.0-18.0) g/dl Hct 46.3 (42.0-52.0) % Plt Count 187 (130-400) K/uL Neut # (Auto) 4.39 (1.40-6.50) K/uL Lymph # (Auto) 1.30 (1.20-3.40) K/uL [place] # (Auto) 0.48 (0.11-0.59) K/uL Eos # (Auto) 0.10 (0.00-0.50) K/uL Baso # (Auto) 0.04 (0.00-0.20) K/uL Comprehensive Metabolic Panel 02/18/23 Range/Units 08:32 Sodium 133 L (136-145) mmol/L Potassium 3.9 (3.5-5.1) mmol/L Chloride 100 (98-107) mmol/L Carbon Dioxide 26 (21-32) mmol/L BUN 16 (6-23) mg/dl Creatinine 0.70 (0.6-1.4) mg/dl Glucose 418 H* (70-99(Fasting)) mg/dl Calcium 8.9 (8.6-10.3) mg/dl AST 26 (13-39) U/L ALT 50 (7-52) U/L Alkaline Phosphatase 87 (34-104) U/L Total Protein 7.5 (6.0-8.3) gm/dl Albumin 4.3 (3.4-5.0) gm/dl Intake and Output 02/18/23 02/18/23 02/18/23 06:59 14:59 22:59 Intake Total 1100 / 1100 Balance 1100 / 1100 Intake: IV 1100 / 1100 Acetaminophen 1,000 mg In 100 100 / 100 ml @ 400 mls/hr IV NOW STA Rx#: [id number] Sodium Chloride 0.9% 1,000 ml @ 1000 / 1000 999 mls/hr IV .Q1H1M ONE Rx#: [id number] Other: Weight 114 kg Weight Measurement Method Built in [facility] Patient Weight 02/19/23 06:59 Weight 114 kg
[2023-02-18] MEDS: LANTUS PER UNIT CHARGE SQ SCH ×2 (16:12→22:18)
[2023-02-18] MEDS: NITROGLYCERIN 2% OINTMENT 30GM TUBE EXT SCH ×2 (16:12→22:48)
[2023-02-18] MEDS: ATORVASTATIN 40 MG TAB PO SCH (16:12)
[2023-02-18] MEDS: lisinopril 10 MG TAB PO SCH (16:12)
[2023-02-18] MEDS ORDERED: INFLUENZA VIRUS QUADRIVALENT VACCINE (IIV4) 0.5 ML SYR IM ONE (16:24)
[2023-02-18 17:09] LABS: Estimated Average Glucose 306 mg/dl; Hemoglobin A1C 12.3 % (4.5-5.6)
[2023-02-18] MEDS: INSULIN ASPART PER UNIT CHARGE SC SCH ×2 (17:23→22:19)
[2023-02-18 22:45] LABS: Partial Thromboplastin Time 28.4 Seconds (21.0-31.0)
[2023-02-19] MEDS: INSULIN ASPART PER UNIT CHARGE SC SCH ×6 (01:12→20:21)
[2023-02-19] MEDS: NITROGLYCERIN 2% OINTMENT 30GM TUBE EXT SCH ×2 (03:46→11:42)
[2023-02-19 06:08] LABS: Hematocrit (blood only) 45.7 % (42.0-52.0); Hemoglobin 16.3 g/dl (14.0-18.0); Mean Corpuscular Hemoglobin 28.4 pg (25.0-34.0); Mean Corpuscular Hgb Conc 35.7 g/dL (32.0-36.0); Mean Corpuscular Volume 79.8 fL (80.0-100.0); Mean Platelet Volume 9.3 fL (9.4-12.4); Platelet Count 235 K/uL (130-400); RDW Coefficient of Variation 12.6 % (11.5-14.5); RDW Standard Deviation 35.7 fL (36.4-46.3); Red Blood Count 5.73 M/uL (4.70-6.10); White Blood Count 15.39 K/ul (4.8-10.8)
[2023-02-19 06:27] LABS: Albumin Globulin Ratio 1.3 (0.9-2); Albumin Level 4.2 gm/dl (3.4-5.0); BUN Creatinine Ratio 23.1 (10-20); Calcium 9.4 mg/dl (8.6-10.3); Chol HDL Ratio 4.9 (0-5); Creatinine Clr Calc Pharmacy 195.4 ml/min; Est GFR (African American) 145.1 ml/min; Est GFR (Non-African American) 125.2 ml/min; Globulin 3.2 gm/dl (2.5-4.0); Potassium 3.7 mmol/L (3.5-5.1); Total Protein 7.4 gm/dl (6.0-8.3)
[2023-02-19 06:36] LABS: Partial Thromboplastin Ratio 1.2; Partial Thromboplastin Time 34.5 Seconds (21.0-31.0)
[2023-02-19] MEDS ORDERED: HEPARIN SOD (PORCINE) 1000 UNIT/ML IV ONE ×2 (06:48→22:15)
--- NOTE | 2023-02-19 07:20 | Cardiology Progress Note ---
Date of Service February 19, 2023 Assessment & Plan (1) NSTEMI (non-ST elevated myocardial infarction): (2) Coronary artery disease: (3) HTN (hypertension): (4) Hyperlipidemia: Plan IMPRESSION: 38-year-old male presented to [facility] emergency department due chest pain. Symptoms concerning for unstable angina/NSTEMI Hx of NM in 2018/2018 with PCI of unknown coronary artery-- possibly LAD per the patient. High-sensitivity troponins elevated from 40>>6000 >> 13,000 EKG with T wave inversions in inferior leads and echo revealing wall motion abnormality of the septal, anteroseptal, and inferior wall. Patient currently chest pain-free but remains hypertensive (BP improved with meds) PLAN: BP trending towards better control. Continue Lisinopril 10 mg daily-- will likely increase pending cath results/clinical course HR averaging in the 80-90s. 3 beat run of VT on tele. Increase metoprolol succinate to 25 mg daily Nitro-paste added for preload reduction. Patient NPO for cardiac catheterization this morning. Discussed risk vs benefit of procedure- patient agreeable. Continue IV heparin and ASA 81 mg daily Continue statin therapy. Avoid NSAIDs/Toradol Case discussed with Dr. East-- will follow. Admission and Anticipated Discharge Date Admission Date: February 18, 2023 Supervising Physician Co-Signing Physician Notes 38-year-old male with history of coronary disease admitted with NSTEMI. Cardiac catheterization performed by the undersigned. See separate report. In summary, LAD with possible mid vessel dissection versus thrombus. ERIC-3 flow. Interventional cardiology recommending conservative management. PE: VSS. GEN: NAD, AAO x3. Heart:Regular rhythm, normal S1-S2. No murmur. Lungs: Clear bilateral, no rales, rhonchi, wheeze. Extremities: Palpable radial and femoral pulses. No edema. 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 Cardiac catheterization revealing mid LAD thrombus versus dissection. Up to 60% stenosis noted in caudal views with ERIC-3 flow. Interventional cardiology consulted recommending conservative management with Brilinta and heparin. Will restart heparin when radial band removed. Increase atorvastatin to 80 mg daily. Continue metoprolol succinate, aspirin, and lisinopril. Subjective 38-year-old male with history of hypertension, diabetes, and coronary disease with stenting to undisclosed vessel in the setting of myocardial infarction at age 32 presented to the ER with recurrent chest discomfort. Reports symptoms identical to prior myocardial infarction. Symptoms lasted several hours and spontaneously resolved during CT of his chest. EKG without ST elevation but notable T wave inversion in inferior leads. Echo revealing wall motion abnormality of the septal/anteroseptal/inferior wall. High-sensitivity troponin elevated from 46.2 >> 6386.8 >> 13,761.6 He was restarted on aspirin, statin, metoprolol, lisinopril. IV heparin initiated. Blood pressures remained hypertensive and patient was started on topical nitrates. 02/19/2023: Upon entrance in to the room patient resting in bed. No acute distress. Patient remains chest pain free over night and into this am. No shortness of breath. Lightheadedness, nausea, or vomiting. No orthopnea or PND. No lower extremity edema. Remains NPO for possible cath this am. Tele: NSR 80-90s. 3 beat run of VT over night. Review of Systems Review of Systems: All systems reviewed & are unremarkable except as noted in HPI & below Physical Exam Constitutional: WD/WN, vitals as above no acute distress Neck: normal visual inspection and trachea midline Respiratory: normal respiratory effort, lungs clear to auscultation no cough Cardiovascular: RRR, no murmur, no edema Heart Sounds: normal S1 and normal S2; no murmur Vessels: no JVD Extremities: no edema Gastrointestinal (Abdomen): normal bowel sounds, soft, nontender, no hepatosplenomegaly Skin: no rashes, warm and dry Psychiatric: A+Ox3, euthymic affect Results & Data Vital Signs (Past 12 Hours) Vital Signs Temp Pulse Pulse Resp BP Pulse Ox O2 Del Method 02/18/23 22:01 92 H 02/19/23 02:31 36.4 C L 87 16 121/76 96 Room Air 02/18/23 22:27 36.3 C L 100 H 103/70 95 Room Air Laboratory Results Cardiac Enzymes 02/18/23 02/18/23 02/18/23 Range/Units 08:32 11:50 18:09 AST 26 (13-39) U/L Troponin I High Sens 46.2 H 6386.8 H* D 93369.6 H* D (0-20) pg/ml 02/19/23 Range/Units 05:41 AST 51 H (13-39) U/L Troponin I High Sens 9103.6 H* D (0-20) pg/ml Coagulation 02/18/23 02/18/23 02/18/23 Range/Units 08:32 08:32 21:53 PT 11.0 (9.0-12.0) Seconds APTT 25.5 28.4 (21.0-31.0) Seconds 02/19/23 Range/Units 05:41 PT (9.0-12.0) Seconds APTT 34.5 H (21.0-31.0) Seconds Lipids 02/18/23 02/19/23 Range/Units 11:50 05:41 Triglycerides 291 H 135 (0-150) mg/dl Cholesterol 177 212 H (0-200) mg/dl HDL Cholesterol 31 43 mg/dl Cholesterol/HDL Ratio 5.7 H 4.9 (0-5) CBC 02/18/23 02/19/23 Range/Units 08:32 05:41 WBC 6.35 15.39 H (4.8-10.8) K/ul RBC 5.77 5.73 (4.70-6.10) M/uL Hgb 16.4 16.3 (14.0-18.0) g/dl Hct 46.3 45.7 (42.0-52.0) % Plt Count 187 235 (130-400) K/uL Neut # (Auto) 4.39 (1.40-6.50) K/uL Lymph # (Auto) 1.30 (1.20-3.40) K/uL [place] # (Auto) 0.48 (0.11-0.59) K/uL Eos # (Auto) 0.10 (0.00-0.50) K/uL Baso # (Auto) 0.04 (0.00-0.20) K/uL Comprehensive Metabolic Panel 02/18/23 02/18/23 02/19/23 Range/Units 08:32 21:12 05:41 Sodium 133 L 136 (136-145) mmol/L Potassium 3.9 3.7 (3.5-5.1) mmol/L Chloride 100 103 (98-107) mmol/L Carbon Dioxide 26 25 (21-32) mmol/L BUN 16 15 (6-23) mg/dl Creatinine 0.70 0.65 (0.6-1.4) mg/dl Glucose 418 H* 297 H 249 H (70-99(Fasting)) mg/dl Calcium 8.9 9.4 (8.6-10.3) mg/dl AST 26 51 H (13-39) U/L ALT 50 45 (7-52) U/L Alkaline Phosphatase 87 80 (34-104) U/L Total Protein 7.5 7.4 (6.0-8.3) gm/dl Albumin 4.3 4.2 (3.4-5.0) gm/dl Intake and Output 02/18/23 02/19/23 02/19/23 22:59 06:59 14:59 Intake Total 450 / 1746 196 / 1746 205.200 / 205.200 Balance 450 / 1746 196 / 1746 205.200 / 205.200 Intake: IV 196 / 1296 205.200 / 205.200 Heparin Sodium/Dextrose 25,000 196 / 196 205.200 / 205.200 units In 500 ml @ 1,250 UNITS/ HR 25 mls/hr IV .Q20H [facility] Rx#: [id number] Oral 450 / 450 Other: Other Intake Source sips # Unmeasured Voids 2 0 Weight 112.7 kg 113.8 kg
[2023-02-19] MEDS: HEPARIN SODIUM/DEXTROSE 25,000 UNITS/500 ML BAG IV SCH (07:33)
--- NOTE | 2023-02-19 08:03 | Electrocardiogram Report ---
Test Reason : Blood Pressure : / mmHG Vent. Rate : 091 BPM Atrial Rate : 091 BPM P-R Int : 174 ms QRS Dur : 098 ms QT Int : 352 ms P-R-T Axes : 024 049 025 degrees QTc Int : 432 ms Normal sinus rhythm Normal ECG When compared with ECG of 18-FEB-2023 13:18, (unconfirmed) No significant change was found Confirmed by Kwan Early ([id number]) on 02/19/2023 8:02:44 AM Referred By: REFERRED SELF Confirmed By:Fabricio Early
[2023-02-19] MEDS: lisinopril 10 MG TAB PO SCH (08:46)
--- NOTE | 2023-02-19 09:08 | Pre Anesthesia Assessment ---
Date of Service February 19, 2023 Pre Sedation Assessment Vital Signs Temp Pulse Pulse Pulse Resp BP Pulse Ox 02/19/23 10:45 75 18 121/84 95 02/19/23 08:00 88 02/19/23 09:00 90 18 126/92 95 02/19/23 07:22 36.8 C 89 20 150/105 H 95 02/18/23 22:01 92 H 02/19/23 02:31 36.4 C L 87 16 121/76 96 02/18/23 22:27 36.3 C L 100 H 103/70 95 02/18/23 18:55 36.5 C 107 H 18 126/82 02/18/23 16:00 36.6 C 91 H 18 153/101 H 94 02/18/23 15:39 36.6 C 91 H 17 153/101 H 94 02/18/23 14:01 92 H 19 160/109 H 98 02/18/23 13:44 92 H 97 02/18/23 13:44 97 02/18/23 13:20 86 18 156/108 H 97 02/18/23 12:36 85 02/18/23 11:01 86 19 171/115 H 97 O2 Del Method 02/19/23 10:45 Room Air 02/19/23 08:00 02/19/23 09:00 Room Air 02/19/23 07:22 Room Air 02/18/23 22:01 02/19/23 02:31 Room Air 02/18/23 22:27 Room Air 02/18/23 18:55 Room Air 02/18/23 16:00 Room Air 02/18/23 15:39 Room Air 02/18/23 14:01 Room Air 02/18/23 13:44 Room Air 02/18/23 13:44 Room Air 02/18/23 13:20 Room Air 02/18/23 12:36 02/18/23 11:01 Room Air Cardiovascular + regular rate and + regular rhythm + S1 normal and + S2 normal; no murmur no JVD and no carotid bruit no edema Respiratory no respiratory effort normal, no respiratory distress, no labored breathing and no retractions no crackles, no rales, no rhonchi and no wheezes Pre-Sedation Airway Assessment Smoking Status: Never smoker Hx Sleep Apnea: No Short, Thick Neck: No Thyromental Distance: > or= 3.5 Finger Breadths Oral Cavity: + WNL Mallampati Class: III ASA: ASA3 NPO Status Date of Last Intake of Fluids: 02/19/23 Time of Last Intake of Fluids: 08:00 Date of Last Intake of Solid Food: 02/18/23 Time of Last Intake of Solid Foods: 23:00 Procedure Planning Contraindications for Sedation: none Current Medications Reviewed: No Notes The planned sedation has been discussed with the patient. Informed Consent was obtained. I have identified the patient, determined the appropriateness of sedation and have assessed the patient immediately prior to the procedure. All medicine(s) and interventions are by my order.
[2023-02-19] MEDS ORDERED: ASPIRIN 325 MG ECTAB PO ONE (09:15)
[2023-02-19] MEDS ORDERED: MIDAZOLAM HCL 1 MG/ML 2ML VIAL ONE (09:28)
[2023-02-19] MEDS ORDERED: HEPARIN (PORCINE) 1000 UNIT/ML 10 ML (CATH LAB USE ONLY) ONE (09:28)
[2023-02-19] MEDS ORDERED: niCARdipine HCL INJ 2.5 MG/ML 10 ML AMP ONE (09:29)
[2023-02-19] MEDS ORDERED: fentaNYL citrate PF 100 MCG/2 ML VIAL ONE (09:29)
[2023-02-19] MEDS ORDERED: NITROGLYCERIN/D5W 100MCG/ML 20ML SYR ONE (09:30)
--- NOTE | 2023-02-19 09:45 | Electrocardiogram Report ---
Test Reason : Blood Pressure : / mmHG Vent. Rate : 087 BPM Atrial Rate : 087 BPM P-R Int : 176 ms QRS Dur : 076 ms QT Int : 338 ms P-R-T Axes : 016 055 037 degrees QTc Int : 406 ms Normal sinus rhythm When compared with ECG of 18-FEB-2023 08:18, T wave inversion no longer evident in Inferior leads Nonspecific T wave abnormality no longer evident in Lateral leads Confirmed by Kwan Early ([id number]) on 02/19/2023 9:45:17 AM Referred By: REFERRED SELF Confirmed By:Fabricio Early
--- NOTE | 2023-02-19 10:17 | Post Anesthesia Assessment ---
Date of Service February 19, 2023 Post Sedation Assessment Vital Signs Temp Pulse Pulse Pulse Resp BP BP 02/19/23 11:30 83 131/92 02/19/23 11:15 78 124/89 02/19/23 11:00 74 18 128/85 02/19/23 10:45 75 18 121/84 02/19/23 08:00 88 02/19/23 09:00 90 18 126/92 02/19/23 07:22 36.8 C 89 20 150/105 H 02/18/23 22:01 92 H 02/19/23 02:31 36.4 C L 87 16 121/76 02/18/23 22:27 36.3 C L 100 H 103/70 02/18/23 18:55 36.5 C 107 H 18 126/82 02/18/23 16:00 36.6 C 91 H 18 153/101 H 02/18/23 15:39 36.6 C 91 H 17 153/101 H 02/18/23 14:01 92 H 19 160/109 H Pulse Ox O2 Del Method 02/19/23 11:30 98 Room Air 02/19/23 11:15 97 Room Air 02/19/23 11:00 95 Room Air 02/19/23 10:45 95 Room Air 02/19/23 08:00 02/19/23 09:00 95 Room Air 02/19/23 07:22 95 Room Air 02/18/23 22:01 02/19/23 02:31 96 Room Air 02/18/23 22:27 95 Room Air 02/18/23 18:55 Room Air 02/18/23 16:00 94 Room Air 02/18/23 15:39 94 Room Air 02/18/23 14:01 98 Room Air Recovery Score Activity: Moves 4 extremities Respiration: Deep Breath/Cough Circulation: +/-20% PreAnes Value Consciousness: Arouseable (by name) Discharge Sedation Level of Care: Phase I Post Sedation Plan On clinical assessment, the patient appears to have tolerated the sedation without complications. Patient is recovering as anticipated. Patient will continue to be monitored by nursing and may be discharged when sedation discharge criteria are met per below protocol. Upon Completions of procedure up to 15 minutes continue every 5 minute vital signs and the P.A.R. score; then discharge to a Phase I or Fast Track to Phase II per the following guidelines: * Discharge Patient to appropriate Phase II area if PAR is 8 or greater or return to pre- procedure baseline. The post - procedure orders will be as directed. * If PAR score is less than 8 or not return to pre-procedure baseline then patient will follow Phase I monitoring till PAR is reached for Phase II. The Phase I may be done in procedure room or may call to secure a Phase I area. * If naloxone or flumazenil are used for reversal, hold in Phase I for continued monitoring from when last reversal dose was given for a minimum of 60 minutes or longer pending the nurse and/or physician discretion of patient condition before discharge to Phase II. Please call the Sedation Physician to re-evaluate and complete post-note for discharge to Phase II area. Do NOT discharge from procedure sedation or Phase 1 until post- sedation evaluation note is complete by procedure /sedation MD Sedation Discharge Instructions to be given to the patient at discharge to home.
--- NOTE | 2023-02-19 10:27 | Cardiac Catheterization ---
Cardiac Cath Procedure Full Procedure Date February 19, 2023 Pre-Procedure Diagnosis Pre-Procedure Diagnosis: Non STEMI, CAD and Cardiomyopathy AUC Score AUC Score: 8 Post-Procedure Diagnosis Post-Procedure Diagnosis: Severe CAD (Mid LAD thrombus) Procedure(s) Performed Procedure(s) Performed: Coronary Angiography and Left Heart Cath Advanced Practice Nurse Psychotherapist Harmeet East DO Concrete Block Mason(s) Jonathan RTBethany Estimated Blood Loss Estimated Blood Loss: 7cc Medication(s) Medication(s): Fentanyl, Heparin, Lidocaine 1%, Nitroglycerin and Versed Summary of Findings There is an area of dissection versus thrombus in the mid LAD distal to the previously implanted stent. ERIC-3 flow with up to 60% stenosis. Patent mid LAD stent. Hemodynamics Rest Ao:: 92/65/102 Final Ao: 29536/89 LV: 102//12 Recommendations Recommendations: CABG and Management Recommendatons (Interventional cardiology consulted for further evaluation of mid LAD thrombus versus dissection. Additional injections performed by interventional cardiology. Recommending medical management at this time) Radiation Exposure (mGy) 2046 Contrast (mls) 85 Drains Drains: n/a Anesthesia Moderate sedation. Start 0944. End 1011. Sedation monitor: Tonya BARFIELD Procedural Complication(s) None Disposition Patient remained in Cage Supervisor for evaluation by interventional cardiology. I attest to the content of the Intraoperative Record and any orders documented therein. Any exceptions are noted below. ACC Data: Cage Supervisor Cardiac Status Clinical evaluation leading to the procedure NSTEMI with history of LAD stent. CAD Presenation: Non STEMI Heart Failure: No STEMI OR Non-STEMI Symptom Onset Date: 02/18/23 Symptom Onset Time: 09:00 Thrombolytics: No Coronary Anatomy Dominant: Right Left Main (% Stenosis): Mid (20%) LAD (% Stenosis): Mid (Patent stent followed by area of dissection versus thrombus. Restricted flow with up to 60% stenosis noted in caudal view.) D1 (% Stenosis): Normal D2 (% Stenosis): Proximal (40%) Circumflex (% Stenosis): Normal OM1 (% Stenosis): Normal L PL1 (% Stenosis): Normal RCA (% Stenosis): Mid (10%) R PDA (% Stenosis): Mid (Small subbranch with 70% ostial stenosis) R PL1 (% Stenosis): Normal Diagnostic Physicians Name: Harmeet East DO Closure Device Percutaneous Entry Location: Radial Closure Device: Radial Band Recommendations: CABG and Management Recommendatons (Interventional cardiology consulted for further evaluation of mid LAD thrombus versus dissection. Additional injections performed by interventional cardiology. Recommending medical management at this time) Intraprocedure Events Significant Disection: No Perforation: No
[2023-02-19] MEDS ORDERED: TICAGRELOR 90 MG TAB ONE (10:39)
--- NOTE | 2023-02-19 10:45 | Cardiac Catheterization ---
[facility] Data: Cash Applications Clerk Cardiac Status Clinical evaluation leading to the procedure CAD Presenation: Non STEMI Anginal Classification: CCS IV Diagnostic Physicians Name: Abram Diallo MD, PhD Closure Device Recommendations: Medical Therapy and/or Counseling Cardiac Cath Procedure Full Procedure Date February 19, 2023 Pre-Procedure Diagnosis Pre-Procedure Diagnosis: Non STEMI, CAD and Cardiomyopathy AUC Score AUC Score: 8 Post-Procedure Diagnosis Post-Procedure Diagnosis: Severe CAD (Mid LAD probable dissection (spontaneous)) Procedure(s) Performed Procedure(s) Performed: Coronary Angiography Olive Grower Abram Diallo MD, PhD [employer] Fusion Consultant(s) Jonathan RTR Estimated Blood Loss Estimated Blood Loss: 2 ml Medication(s) Medication(s): Fentanyl, Heparin, Lidocaine 1%, Nitroglycerin and Versed Summary of Findings Brief description: Patient was already shaved and prepped in a sterile fashion and on the Cash Applications Clerk table. A previously sedated and accessed by Dr. East. 6 Kinyarwanda radial artery glide sheath in place. A 6 Kinyarwanda JL 3.5 guide catheter was used to engage the left main coronary. Coronary angiography was performed to further evaluate the questionable mid to distal LAD lesion. After angiography decision was made for medical management only. The guide catheter was removed over a J-wire. Radial artery sheath was removed and hemostasis was obtained using the TR band. Patient was hemodynamically stable and asymptomatic. He was returned to the recovery area. This ended the case. Coronary angiography findings: Mid to distal LAD after the previously placed stent and just after 8 sharp bend in the artery at the level of a septal branch appears to have dissection flap. Cannot exclude a small septal paralleling the LAD. There is ERIC-3 flow. No focal severe lesion. Recommendations: 1. Decision was made to follow guideline directed medical therapy rather than PCI. Patient was stable with good distal flow and the risk of destabilizing was greater than the anticipated benefit. Patient will be started on aspirin 81 mg daily, Brilinta 90 mg p.o. twice daily, and heparin will be restarted without bolus to complete 48 hours of therapy. Hemodynamics Rest Ao:: 95/72 mmHg Final Ao: 105/78 mmHg LV: Not performed Recommendations Recommendations: Medical Therapy and/or Counseling Radiation Exposure (mGy) 2988 milligrays, fluoroscopy time 11 minutes Contrast (mls) 100 mL total Drains Drains: n/a Anesthesia 2 mg IV Versed, 50 mcg IV fentanyl. Start time 1014, end time 1032 Disposition Cash Applications Clerk Holding/Recovery I attest to the content of the Intraoperative Record and any orders documented therein. Any exceptions are noted below. [facility] Card Cath Procedure Codes Moderate Sedation Procedure 1: Sedation/Anesthesia: 40389 Mod Sedation by a different physician ;Init15 Min Child Age 5&Up (Additional sedation operator assistant i cementing. Start 101, end 103) PG Care Time/CCT Total # of Minutes Spent Total Time Spent with Patient: Total time spent is greater than 50% in coordination of care (as documented) at patient's floor/unit and/or counseling patient:
[2023-02-19] MEDS ORDERED: NITROGLYCERIN SL 0.4 MG/TAB TAB SL PRN (11:15)
[2023-02-19] MEDS: FLUoxetine HCL 20 MG CAP PO SCH (11:42)
[2023-02-19] MEDS: METOPROLOL SUCC 25MG EXT REL TAB PO SCH (11:42)
[2023-02-19] MEDS: ASPIRIN 81 MG ECTAB PO SCH (11:42)
[2023-02-19] MEDS: ATORVASTATIN 40 MG TAB PO SCH (11:42)
--- NOTE | 2023-02-19 12:01 | Hospitalist Progress Note ---
Date of Service February 19, 2023 Assessment & Plan (1) NSTEMI (non-ST elevated myocardial infarction): (2) Coronary artery disease: (3) Psoriatic arthritis: (4) HTN (hypertension): (5) Diabetes: (6) Depression with anxiety: Plan Patient is a 38-year-old male who presented to the ED with chest pain on exertion. He also reported shortness of breath and 1 episode of vomiting along with chest pain. The chest pain radiated to his shoulder. History of NV approximately 5 years back status post stent in the LAD. He also has history of type 2 diabetes mellitus, currently not on medication. Other relevant past family history is hypertension, depression, psoriatic arthritis. History of repeat resection with pain revision status post right upper extremity DVT last year at [facility]. Patient is admitted to telemetry floor for concern of NSTEMI. NSTEMI: Suspected mid LAD dissection History of AMI s/p stent x 2017 38-year-old male presented to the ED with chest pain on exertion. Initial high sensitive troponin is 42; up trended to 13,000 and down trended to 9000 this morning ECG on admission personally reviewed sinus rhythm with T wave inversion in inferior leads. Chest CTA: Negative for PE; Age advanced coronary artery atherosclerosis Stopped taking medication 6 months ago including antihypertensives; metoprolol and lisinopril Echocardiogram shows EF of 55 to 60% with moderate size septal, anteroseptal and inferior wall motion abnormality with hypokinesis of the segments. Left heart cath was done today; possible dissection in mid LAD; no PCI intervention started. Plan to start on aspirin, Brilinta as per cardiology. Heparin drip without bolus for 48 hours On a statin, lisinopril and metoprolol. Monitor on telemetry Type 2 diabetes mellitus Stop taking medications few months back HbA1c around 12% Was previously on insulin, Ozempic and Jardiance. A1c 1 year back was 6.1 on those medication Will start him on insulin and Jardiance at discharge. tobacco prevention health educator consulted H/O rib resection: Chronic stable 2021; with vein revision s/p RUE DVT last year at the [facility] Was on Eliquis for 6 months Psoriatic arthritis: Chronic stable Historically takes Humira; has not taken past 6 months Does not follow with any specialists locally HTN: Chronic stable cysts Historically takes metoprolol 25 mg daily and lisinopril 20 mg daily; has not taken past 6 months due to insurance issues Reportedly per patient; both of those medications cause concerns with his ADHD. ADHD: Depression with anxiety: Chronic stable Was taking Fluoxetine but stopped 6 months ago due to insurance complications; restarted Disposition: PCP: Dr. Richardson CODE STATUS: Full code VTE prophylaxis: On Heparin drip Discharge needs: Case management notified for complex needs regarding medication concerns; apply for MA Time spent evaluating patient, direct bedside care, chart review, placing orders, interpretation of diagnostic studies, discussion with consultants, patient, and family members, as well as other required patient management activities is 60 minutes Please note the above document was generated using voice recognition software. It may contain grammatical, syntax or spelling errors. Any formal questions or concerns about the content, text or information contained within the body of this dictation should be directly addressed to the provider for clarification Admission and Anticipated Discharge Date Admission Date: February 18, 2023 Subjective Patient seen and examined after the cardiac cath. He denied any chest pain overnight. Review of Systems Review of Systems: All systems reviewed & are unremarkable except as noted in Subjective Physical Exam Physical Exam: Constitutional: Alert orient x3; not in distress. Morbidly obese. Respiratory: Bilateral clear breath sound Cardiovascular: RRR, no murmur, no edema Vessels: no JVD or carotid bruit Chest: normal inspection of chest Abdomen: normal bowel sounds, soft, nontender, no hepatosplenomegaly Musculoskeletal: no cyanosis or clubbing, extremities motor strength 5/5 Skin: no rashes, warm and dry normal turgor Neurologic: PERRL, EOMI, accommodation nl, no face palsy, no dysarthria CN's II- XI intact bilaterally and moves all extremities Psychiatric: A+Ox3, euthymic affect Results & Data Results & Data Vital Signs (Past 12 Hours) Vital Signs Temp Pulse Pulse Resp BP BP Pulse Ox 02/19/23 11:30 83 131/92 98 02/19/23 11:15 78 124/89 97 02/19/23 11:00 74 18 128/85 95 02/19/23 10:45 75 18 121/84 95 02/19/23 08:00 88 02/19/23 09:00 90 18 126/92 95 02/19/23 07:22 36.8 C 89 20 150/105 H 95 02/19/23 02:31 36.4 C L 87 16 121/76 96 O2 Del Method 02/19/23 11:30 Room Air 02/19/23 11:15 Room Air 02/19/23 11:00 Room Air 02/19/23 10:45 Room Air 02/19/23 08:00 02/19/23 09:00 Room Air 02/19/23 07:22 Room Air 02/19/23 02:31 Room Air Laboratory Results Laboratory Results WBC 15.39 K/ul (4.8-10.8) H 02/19/23 05:41 RBC 5.73 M/uL (4.70-6.10) 02/19/23 05:41 Hgb 16.3 g/dl (14.0-18.0) 02/19/23 05:41 Hct 45.7 % (42.0-52.0) 02/19/23 05:41 MCV 79.8 fL (80.0-100.0) L 02/19/23 05:41 MCH 28.4 pg (25.0-34.0) 02/19/23 05:41 MCHC 35.7 g/dL (32.0-36.0) 02/19/23 05:41 RDW Std Deviation 35.7 fL (36.4-46.3) L 02/19/23 05:41 RDW Coeff of [place] 12.6 % (11.5-14.5) 02/19/23 05:41 Plt Count 235 K/uL (130-400) 02/19/23 05:41 MPV 9.3 fL (9.4-12.4) L 02/19/23 05:41 Immature Gran % (Auto) 0.6 % 02/18/23 08:32 Neut % (Auto) 69.1 % 02/18/23 08:32 Lymph % (Auto) 20.5 % 02/18/23 08:32 [place] % (Auto) 7.6 % 02/18/23 08:32 Eos % (Auto) 1.6 % 02/18/23 08:32 Baso % (Auto) 0.6 % 02/18/23 08:32 Neut # (Auto) 4.39 K/uL (1.40-6.50) 02/18/23 08:32 Lymph # (Auto) 1.30 K/uL (1.20-3.40) 02/18/23 08:32 [place] # (Auto) 0.48 K/uL (0.11-0.59) 02/18/23 08:32 Eos # (Auto) 0.10 K/uL (0.00-0.50) 02/18/23 08:32 Baso # (Auto) 0.04 K/uL (0.00-0.20) 02/18/23 08:32 Immature Gran # (Auto) 0.04 K/uL (0.01-0.20) 02/18/23 08:32 PT 11.0 Seconds (9.0-12.0) 02/18/23 08:32 INR 1.0 (0.9-1.1) 02/18/23 08:32 APTT 34.5 Seconds (21.0-31.0) H 02/19/23 05:41 PTT Ratio 1.2 02/19/23 05:41 Activ Coag Time Kaolin 191 SECONDS (94-140) H 02/19/23 10:20 Sodium 136 mmol/L (136-145) 02/19/23 05:41 Potassium 3.7 mmol/L (3.5-5.1) 02/19/23 05:41 Chloride 103 mmol/L (98-107) 02/19/23 05:41 Carbon Dioxide 25 mmol/L (21-32) 02/19/23 05:41 Anion Gap 8 (3-11) 02/19/23 05:41 BUN 15 mg/dl (6-23) 02/19/23 05:41 Creatinine 0.65 mg/dl (0.6-1.4) 02/19/23 05:41 Est Cr Clr Drug Dosing 195.4 ml/min 02/19/23 05:41 Est GFR ( Amer) 145.1 ml/min 02/19/23 05:41 Est GFR (Non-Af Amer) 125.2 ml/min 02/19/23 05:41 BUN/Creatinine Ratio 23.1 (10-20) H 02/19/23 05:41 Glucose 249 mg/dl (70-99(Fasting)) H 02/19/23 05:41 POC Glucose 207 mg/dl (70-99) H 02/19/23 11:22 Estimat Average Glucose 306 mg/dl 02/18/23 08:32 Hemoglobin A1c 12.3 % (4.5-5.6) H 02/18/23 08:32 Calcium 9.4 mg/dl (8.6-10.3) 02/19/23 05:41 Phosphorus 3.0 mg/dl (2.5-4.9) 02/18/23 08:32 Magnesium 1.9 mg/dl (1.7-2.4) 02/18/23 08:32 Total Bilirubin 2.0 mg/dl (0.2-1.0) H D 02/19/23 05:41 AST 51 U/L (13-39) H 02/19/23 05:41 ALT 45 U/L (7-52) 02/19/23 05:41 Alkaline Phosphatase 80 U/L (34-104) 02/19/23 05:41 Troponin I High Sens 9103.6 pg/ml (0-20) H* D 02/19/23 05:41 Total Protein 7.4 gm/dl (6.0-8.3) 02/19/23 05:41 Albumin 4.2 gm/dl (3.4-5.0) 02/19/23 05:41 Globulin 3.2 gm/dl (2.5-4.0) 02/19/23 05:41 Albumin/Globulin Ratio 1.3 (0.9-2) 02/19/23 05:41 Triglycerides 135 mg/dl (0-150) 02/19/23 05:41 Cholesterol 212 mg/dl (0-200) H 02/19/23 05:41 LDL Cholesterol, Calc 142 mg/dl 02/19/23 05:41 VLDL Cholesterol, Calc 27 mg/dl (0-30) 02/19/23 05:41 HDL Cholesterol 43 mg/dl 02/19/23 05:41 Cholesterol/HDL Ratio 4.9 (0-5) 02/19/23 05:41 Lipase 56 U/L (11-82) 02/18/23 08:32 Adenovirus (PCR) Not Detected (NotDetected) 02/18/23 Unknown B. pertussis DNA (PCR) Not Detected (NotDetected) 02/18/23 Unknown B.parapertussis DNA PCR Not Detected (NotDetected) 02/18/23 Unknown C. pneumoniae DNA (PCR) Not Detected (NotDetected) 02/18/23 Unknown Coronavirus OC43 (PCR) Not Detected (NotDetected) 02/18/23 Unknown Coronavirus HKU1 (PCR) Not Detected (NotDetected) 02/18/23 Unknown Coronavirus 229E (PCR) Not Detected (NotDetected) 02/18/23 Unknown SARS-CoV-2 (PCR) Not Detected (NotDetected) 02/18/23 Unknown Coronavirus NL63 (PCR) Not Detected (NotDetected) 02/18/23 Unknown Human Metapneumovir PCR Not Detected (NotDetected) 02/18/23 Unknown Influenza Type A (PCR) Not Detected (NotDetected) 02/18/23 Unknown Influenza Type B (PCR) Not Detected (NotDetected) 02/18/23 Unknown M. pneumoniae (PCR) Not Detected (NotDetected) 02/18/23 Unknown Parainfluenza 1 (PCR) Not Detected (NotDetected) 02/18/23 Unknown Parainfluenza 2 (PCR) Not Detected (NotDetected) 02/18/23 Unknown Parainfluenza 3 (PCR) Not Detected (NotDetected) 02/18/23 Unknown Parainfluenza 4 (PCR) Not Detected (NotDetected) 02/18/23 Unknown RSV (PCR) Not Detected (NotDetected) 02/18/23 Unknown Entero/Rhino (PCR) Not Detected (NotDetected) 02/18/23 Unknown Impressions Chest X-Ray 02/18/23 08:16 SINGLE VIEW CHEST CLINICAL HISTORY: Atypical chest pain. FINDINGS: 2 AP, portable, upright chest radiographs are correlated with chest CT dated 02/15/2022. The examination is degraded by portable technique and apical lordotic positioning. The cardiomediastinal silhouette is unremarkable. There are low lung volumes with bibasilar atelectasis. The lungs and pleural spaces are otherwise clear. No pneumothorax is seen. The bony thorax is grossly intact. IMPRESSION: No active disease in the chest. ACT 112: Negative or not required by law. Electronically signed by: Shayne Vora M.D. 02/18/2023 8:51 AM Chest CTA 02/18/23 09:35 CT ANGIOGRAM OF THE CHEST CLINICAL HISTORY: Atypical chest pain. Dyspnea. COMPARISON STUDY: Chest x-ray dated 02/18/2023. Chest CT dated 02/15/2022. TECHNIQUE: Following the IV administration of 113 cc of Optiray 320, CT angiogram of the chest was performed from the upper abdomen to the thoracic inlet utilizing the pulmonary embolus protocol. Images are reviewed in the axial, sagittal, and coronal planes. 3-D MIPS images are created and assessed. IV contrast was administered without complication. A dose lowering technique was utilized adhering to the principles of ALARA. CT DOSE: 785.2 mGy.cm FINDINGS: Thyroid: Imaged portions of the thyroid gland are normal in size and attenuation. Thoracic aorta: The thoracic aorta is normal in caliber and demonstrates bovine variant arch anatomy. No dissection is seen. Pulmonary vasculature: The pulmonary trunk is normal in caliber. There are no filling defects identified in main, lobar, or segmental pulmonary branches to suggest acute pulmonary embolus. There is trace chronic pulmonary embolus within the right lower lobe pulmonary artery seen on image #85. Heart: The heart is top normal in size and without pericardial effusion. There is advanced coronary artery atherosclerosis. Lungs and pleural spaces: Evaluation of the lung parenchyma is degraded by motion artifact. There is mild bibasilar scarring/atelectasis. No airspace consolidation or pleural effusion is identified. The trachea and central airways appear clear. A calcified granuloma is seen in the left lower lobe. Mediastinum: There is no mediastinal lymphadenopathy. Beryl: Clear. Axillae: There is no axillary lymphadenopathy. Upper abdomen: The spleen is enlarged, measuring 16 cm in length. Partially visualized upper abdominal viscera is otherwise grossly unremarkable. Skeletal structures: No lytic or blastic bony lesions are seen. IMPRESSION: 1. There is no evidence of acute pulmonary embolus in the main, lobar, or segmental pulmonary arteries. 2. There is trace chronic pulmonary embolus within the right lower lobe pulmonary artery. 3. There is no airspace consolidation or pleural effusion. 4. Age advanced coronary artery atherosclerosis. Consider follow up with cardiology. 5. Splenomegaly. 6. Additional findings as above. ACT 112: Positive. There are findings on this exam that require communication between the performing entity and the patient following Patient Test Result Information Act ([place] Act 112) guidelines. Electronically signed by: Shayne Vora M.D. 02/18/2023 11:10 AM
[2023-02-19] MEDS: LANTUS PER UNIT CHARGE SQ SCH (12:04)
[2023-02-19] MEDS ORDERED: LANTUS PER UNIT CHARGE SQ ONE (12:30)
[2023-02-19 21:32] LABS: Partial Thromboplastin Ratio 1.1; Partial Thromboplastin Time 31.9 Seconds (21.0-31.0)
[2023-02-20] MEDS: HEPARIN SODIUM/DEXTROSE 25,000 UNITS/500 ML BAG IV SCH ×3 (03:44→18:00)
[2023-02-20 04:43] LABS: Basophils # (auto) 0.04 K/uL (0.00-0.20); Basophils % (auto) 0.5 %; Eosinophils # (auto) 0.11 K/uL (0.00-0.50); Eosinophils % (auto) 1.3 %; Hematocrit (blood only) 43.9 % (42.0-52.0); Hemoglobin 15.8 g/dl (14.0-18.0); Immature Granulocytes # (auto) 0.05 K/uL (0.01-0.20); Immature Granulocytes % (auto) 0.6 %; Lymphocytes # (auto) 2.05 K/uL (1.20-3.40); Lymphocytes % (auto) 23.3 %; Mean Corpuscular Hemoglobin 28.7 pg (25.0-34.0); Mean Corpuscular Volume 79.7 fL (80.0-100.0); Mean Platelet Volume 9.3 fL (9.4-12.4); Monocytes # (auto) 0.66 K/uL (0.11-0.59); Monocytes % (auto) 7.5 %; Neutrophils # (auto) 5.89 K/uL (1.40-6.50); Neutrophils % (auto) 66.8 %; Platelet Count 212 K/uL (130-400); RDW Coefficient of Variation 12.9 % (11.5-14.5); RDW Standard Deviation 36.2 fL (36.4-46.3); Red Blood Count 5.51 M/uL (4.70-6.10)
[2023-02-20 05:00] LABS: Calcium 8.6 mg/dl (8.6-10.3); Creatinine Clr Calc Pharmacy 173.2 ml/min; Est GFR (African American) 137.5 ml/min; Est GFR (Non-African American) 118.7 ml/min; Potassium 3.4 mmol/L (3.5-5.1)
[2023-02-20 05:23] LABS: Partial Thromboplastin Ratio 1.6
[2023-02-20 05:32] LABS: Partial Thromboplastin Time 45.6 Seconds (21.0-31.0)
[2023-02-20] MEDS: METOPROLOL SUCC 25MG EXT REL TAB PO SCH (08:02)
[2023-02-20] MEDS: FLUoxetine HCL 20 MG CAP PO SCH (08:02)
[2023-02-20] MEDS: ASPIRIN 81 MG ECTAB PO SCH (08:02)
[2023-02-20] MEDS: lisinopril 10 MG TAB PO SCH (08:03)
[2023-02-20] MEDS: INSULIN ASPART PER UNIT CHARGE SC SCH ×4 (08:06→21:02)
[2023-02-20] MEDS: ATORVASTATIN 40 MG TAB PO SCH (08:10)
[2023-02-20] MEDS: TICAGRELOR 90 MG TAB PO SCH ×2 (08:10→19:23)
[2023-02-20] MEDS ORDERED: POTASSIUM CHLORIDE CRTAB 20 MEQ TABCR PO STA (08:33)
[2023-02-20] MEDS ORDERED: LANTUS PER UNIT CHARGE SQ ONE (09:00)
--- NOTE | 2023-02-20 09:20 | Hospitalist Progress Note ---
Date of Service February 20, 2023 Assessment & Plan (1) NSTEMI (non-ST elevated myocardial infarction): (2) Coronary artery disease: (3) Psoriatic arthritis: (4) HTN (hypertension): (5) Diabetes: (6) Depression with anxiety: Plan Patient is a 38-year-old male with PMHx significant for Hx of IA s/p stent placement in the LAD, DMII not currently on medications, hypertension, depression, psoriatic arthritis admitted with NSTEMI. NSTEMI: Presented with chest pain with exertion, N/V History of IA s/p stent x 1 in 2018 Initial high sensitive troponin is 42; peaked at 13,000 before downtrending EKG on admission with sinus rhythm with T wave inversion in inferior leads. Chest CTA: Negative for PE; Age advanced coronary artery atherosclerosis Stopped taking medication 6 months ago including antihypertensives; metoprolol and lisinopril Echocardiogram shows EF of 55 to 60% with moderate size septal, anteroseptal and inferior wall motion abnormality with hypokinesis of the segments. S/p left heart cath on 02/19- noted possible dissection in mid LAD; no PCI intervention per Interventional Cardiology, medical management. Started on aspirin, Brilinta per cardiology-discussion of med affordability, will consider transition to Plavix. Heparin drip without bolus for 24 more hours On a statin, lisinopril and metoprolol. Continue to monitor on telemetry Type 2 diabetes mellitus Stopped taking medications a few months ago HbA1c of 12.3 Was previously on insulin, Ozempic (intolerant to Jardiance). A1c a year ago was 6.1 on those medications senior health educator consulted- appreciate recs -pt with intolerance of jardiance -Pt states unable to afford even the [employer] $35 for Lantus + pen needles $9. States glucose values are going to be persistently elevated unless he is able to qualify for medical assistance or [facility] care for assistance -If he gets medical assistance, consider Lantus Pen and Trulicity. Will need to start with lowest dose of Trulicity. -will also need prescriptions for a new glucose meter (OneTouch Verio Meter)/testing supplies (OneTouch Verio Test Strips- to check 4x/day and OneTouch Delica Lancets 33 gauge- to check 4x/day) -if [facility] care, they will provide his diabetes medications and testing supplies. Basal/bolus insulin while hospitalized Glycemic consult-appreciate recs H/O rib resection: Chronic stable 2021; with vein revision s/p RUE DVT last year at the [facility] Was on Eliquis for 6 months Psoriatic arthritis: Chronic stable Historically takes Humira; has not taken past 6 months Does not follow with any specialists locally HTN: Chronic stable cysts Historically takes metoprolol 25 mg daily and lisinopril 20 mg daily; has not taken past 6 months due to insurance issues Reportedly per patient; both of those medications cause concerns with his ADHD. ADHD: Depression with anxiety: Chronic stable Was taking Fluoxetine but stopped 6 months ago due to insurance complications; restarted Diet: HH/DMII CODE STATUS: Full code VTE prophylaxis: On Heparin drip Dispo: Case management notified for complex needs regarding medication concerns; apply for MA (pt has paperwork but not yet completed) Admission and Anticipated Discharge Date Admission Date: February 18, 2023 Subjective Pt seen in the AM. States that he has no symptoms, feels great. Denies chest pain, SOB, palpitations. Notified that medication cost is a concern for pt. Pt states he has received paperwork that he will be completing for assistance. However notes intolerance to metformin in the past and does not tolerate jardiance. Review of Systems Review of Systems: All systems reviewed & are unremarkable except as noted in Subjective Physical Exam Physical Exam: General: Alert, oriented. No acute distress Skin: No noted rashes or bruises Psych: Appropriate mood and affect Neuro: No gross deficits HEENT: NC/AT, PERRLA, EOMI, oropharynx moist. Chest: Nontender to palpation. CV: RRR Resp: Breath sounds clear bilaterally, no increased effort of breathing. Abdomen: Soft, nontender, nondistended. Extremities: No edema in lower extremities bilaterally. Results & Data Results & Data Vital Signs (Past 12 Hours) Vital Signs Temp Pulse Pulse Resp BP Pulse Ox O2 Del Method 02/20/23 07:30 36.7 C 68 18 131/87 96 Room Air 02/20/23 04:03 36.3 C L 79 14 123/80 95 Room Air 02/19/23 23:43 36.7 C 77 16 118/74 96 Room Air
--- NOTE | 2023-02-20 11:52 | Cardiology Progress Note ---
Date of Service February 20, 2023 Assessment & Plan (1) NSTEMI (non-ST elevated myocardial infarction): (2) Coronary artery disease: (3) HTN (hypertension): (4) Hyperlipidemia: Plan 38-year-old male with history of CAD and prior LAD stenting presents with NSTEMI. Cardiac catheterization performed 02/19/2023 demonstrating mid LAD dissection versus thrombus. Recommend continued treatment with IV heparin for an additional 24 hours. Continue dual antiplatelet therapy with aspirin and Brilinta. Other cardiovascular medications as ordered including lisinopril, metoprolol succinate, and high intensity statin therapy. I will discuss further with interventional cardiology regarding ongoing management. Admission and Anticipated Discharge Date Admission Date: February 18, 2023 Subjective Patient seen examined the bedside. Feeling well overnight. No recurrent chest discomfort. Cardiac catheterization performed 02/19/2023 with evidence of mid LAD thrombus versus dissection. Conservative management recommended by interventional cardiology with antiplatelet therapy and anticoagulation. Review of Systems Review of Systems: All systems reviewed & are unremarkable except as noted in Subjective Physical Exam Constitutional: well developed, well nourished and + obese ENMT: Mallampati Class: III Respiratory: + abnormal respiratory effort, no respir atory distress, no labored breathing and no retractions Auscultation: no crackles, no rales, no rhonchi and no wheezes Cardiovascular: Rate/Rhythm: regular rate and regular rhythm Heart Sounds: normal S1 and normal S2; no murmur Vessels: no JVD and no carotid bruit Extremities: no edema Gastrointestinal (Abdomen): Inspection/Auscultation: abdomen normal to inspection and normal bowel sounds; abdomen not distended Percussion/Palpation: abdomen soft; abdomen nontender, no guarding and abdomen not rigid Neurologic: CN's II-XI intact bilaterally and moves all extremities; no focal motor deficits Results & Data Vital Signs (Past 12 Hours) Vital Signs Temp Pulse Pulse Resp BP Pulse Ox O2 Del Method 02/20/23 11: 36.7 C 84 18 119/74 95 Room Air 02/20/23 07:30 36.7 C 68 18 131/87 96 Room Air 02/20/23 04:03 36.3 C L 79 14 123/80 95 Room Air Laboratory Results Coagulation 02/19/23 02/20/23 Range/Units 20:49 04:21 APTT 31.9 H 45.6 H* (21.0-31.0) Seconds CBC 02/20/23 Range/Units 04:21 WBC 8.80 (4.8-10.8) K/ul RBC 5.51 (4.70-6.10) M/uL Hgb 15.8 (14.0-18.0) g/dl Hct 43.9 (42.0-52.0) % Plt Count 212 (130-400) K/uL Neut # (Auto) 5.89 (1.40-6.50) K/uL Lymph # (Auto) 2.05 (1.20-3.40) K/uL [place] # (Auto) 0.66 H (0.11-0.59) K/uL Eos # (Auto) 0.11 (0.00-0.50) K/uL Baso # (Auto) 0.04 (0.00-0.20) K/uL Comprehensive Metabolic Panel 02/20/23 Range/Units 04:21 Sodium 137 (136-145) mmol/L Potassium 3.4 L (3.5-5.1) mmol/L Chloride 104 (98-107) mmol/L Carbon Dioxide 26 (21-32) mmol/L BUN 20 (6-23) mg/dl Creatinine 0.74 (0.6-1.4) mg/dl Glucose 195 H (70-99(Fasting)) mg/dl Calcium 8.6 (8.6-10.3) mg/dl Intake and Output 02/19/23 02/20/23 02/20/23 22:59 06:59 14:59 Intake Total 7.25 / 1168.000 527.45 / 1168.000 0.55 / 0.55 Balance 7.25 / 1168.000 527.45 / 1168.000 0.55 / 0.55 Intake: IV 7.25 / 768.000 527.45 / 768.000 0.55 / 0.55 Heparin Sodium/Dextrose 25,000 7.25 / 768.000 527.45 / 768.000 0.55 / 0.55 units In 500 ml @ 1,650 UNITS/ HR 33 mls/hr IV .[id number] [facility] Rx #:[id number] Other: # Unmeasured Voids 2 Weight 115.779 kg 115.77 kg Weight Measurement Method [facility] Weight 02/21/23 06:59 Weight 115.77 kg
--- NOTE | 2023-02-20 12:16 | Pharmacy Report ---
Pharmacy Glycemic Short Note 2 - Date of Service February 20, 2023 - Glycemic Short BSG Results (Last 24 hours): 02/19/23 02/19/23 02/20/23 16:11 19:41 04:21 Glucose 195 H POC Glucose 291 H 199 H 02/20/23 02/20/23 02/20/23 07:12 11:16 11:18 Glucose POC Glucose 182 H 346 H* 344 H* OUTPATIENT ANTIDIABETIC REGIMEN: * Jardiance 25 mg PO Daily * Ozempic 0.5mg SQ Weekly * Insulin Glargine 20 units SQ BID * A1c 6.6% 02/16/22, updated A1c ordered ASSESSMENT: 02/20/23 * BSGs yesterday were 023-443-626-199 mg/dL. Patient received 76 units of insulin (42 units of basal and 34 units of bolus). * Fasting today is 182 mg/dL which is trending down. Continue 40 units of Lantus daily. * Tighten Novolog since BSGs trend upwards. Lunch today was 346/344 - did not give IV insulin due to K < 3.5 BACKGROUND * 38 year old male presented with CP, NSTEMI, Type 2 DM, hyperglycemia. Patient also received Dexamethasone 10mg IV x1 in ER this morning contributing to hyperglycemia. * Patient NPO, begin basal bolus SQ insulin at this time, consider IV dose if BSG not responding to SQ dosing. PLAN FOR INPATIENT GLYCEMIC CONTROL: * Hold outpatient diabetes medications * Basal insulin * Lantus 40 units SQ daily * Bolus insulin * NovoLog per scale ACHS or Q6hrs while NPO * Goal Range: Low 110 mg/dL - High 140 mg/dL * Correction Factor 18 mg/dL/unit * Nutritional / Prandial insulin per carb ratio of 1 unit per 4 grams CHO consumed
[2023-02-20] MEDS ORDERED: INSULIN ASPART PER UNIT CHARGE SC SCH (14:45)
[2023-02-21 05:11] LABS: Basophils # (auto) 0.03 K/uL (0.00-0.20); Basophils % (auto) 0.4 %; Eosinophils # (auto) 0.09 K/uL (0.00-0.50); Eosinophils % (auto) 1.3 %; Hemoglobin 16.3 g/dl (14.0-18.0); Immature Granulocytes # (auto) 0.06 K/uL (0.01-0.20); Immature Granulocytes % (auto) 0.9 %; Lymphocytes # (auto) 1.47 K/uL (1.20-3.40); Lymphocytes % (auto) 21.8 %; Mean Corpuscular Hemoglobin 28.3 pg (25.0-34.0); Mean Corpuscular Hgb Conc 34.7 g/dL (32.0-36.0); Mean Corpuscular Volume 81.6 fL (80.0-100.0); Mean Platelet Volume 9.3 fL (9.4-12.4); Monocytes # (auto) 0.64 K/uL (0.11-0.59); Monocytes % (auto) 9.5 %; Neutrophils # (auto) 4.44 K/uL (1.40-6.50); Neutrophils % (auto) 66.1 %; Platelet Count 201 K/uL (130-400); RDW Standard Deviation 37.8 fL (36.4-46.3); Red Blood Count 5.76 M/uL (4.70-6.10); White Blood Count 6.73 K/ul (4.8-10.8)
[2023-02-21 05:28] LABS: Albumin Globulin Ratio 1.2 (0.9-2); Albumin Level 3.6 gm/dl (3.4-5.0); BUN Creatinine Ratio 24.2 (10-20); Bilirubin,Total 1.9 mg/dl (0.2-1.0); Calcium 8.7 mg/dl (8.6-10.3); Creatinine Clr Calc Pharmacy 206.7 ml/min; Est GFR (African American) 147.9 ml/min; Est GFR (Non-African American) 127.6 ml/min; Globulin 2.9 gm/dl (2.5-4.0); Magnesium 1.9 mg/dl (1.7-2.4); Potassium 3.5 mmol/L (3.5-5.1); Total Protein 6.5 gm/dl (6.0-8.3)
[2023-02-21 06:00] LABS: Partial Thromboplastin Ratio 1.6
[2023-02-21 06:05] LABS: Partial Thromboplastin Time 44.7 Seconds (21.0-31.0)
[2023-02-21] MEDS: TICAGRELOR 90 MG TAB PO SCH (08:12)
[2023-02-21] MEDS: ATORVASTATIN 40 MG TAB PO SCH (08:12)
[2023-02-21] MEDS: FLUoxetine HCL 20 MG CAP PO SCH (08:12)
[2023-02-21] MEDS: ASPIRIN 81 MG ECTAB PO SCH (08:13)
[2023-02-21] MEDS: lisinopril 10 MG TAB PO SCH (08:13)
[2023-02-21] MEDS: METOPROLOL SUCC 25MG EXT REL TAB PO SCH (08:13)
[2023-02-21] MEDS: INSULIN ASPART PER UNIT CHARGE SC SCH ×4 (08:19→20:23)
[2023-02-21] MEDS ORDERED: LANTUS PER UNIT CHARGE SQ SCH (09:00)
[2023-02-21] MEDS: HEPARIN SODIUM/DEXTROSE 25,000 UNITS/500 ML BAG IV SCH (09:42)
--- NOTE | 2023-02-21 14:02 | Pharmacy Report ---
Pharmacy Glycemic Short Note 2 - Date of Service February 21, 2023 - Glycemic Short BSG Results (Last 24 hours): 02/20/23 02/20/23 02/20/23 14:54 16:23 20:05 Glucose POC Glucose 156 H 119 H 174 H 02/21/23 02/21/23 02/21/23 04:44 07:31 11:37 Glucose 166 H POC Glucose 163 H 231 H OUTPATIENT ANTIDIABETIC REGIMEN: * Jardiance 25 mg PO Daily * Ozempic 0.5mg SQ Weekly * Insulin Glargine 20 units SQ BID * A1c 6.6% 02/16/22, 12.3% (02/18/23 since patient unable to take home medications) ASSESSMENT: 02/21/23 * BSGs yesterday were 182-346/344-156/119-174 mg/dL. Patient received 80 units of insulin (40 units of basal and 40 units). * Fasting today is 163 mg/dL. Fasting is trending downwards nicely so continue 40 units daily. * CF/CR tightened at lunchtime yesterday. Will tighten CR again as patient appears to be carb sensitivite. 02/20/23 * BSGs yesterday were 321-413-015-199 mg/dL. Patient received 76 units of insulin (42 units of basal and 34 units of bolus). * Fasting today is 182 mg/dL which is trending down. Continue 40 units of Lantus daily. * Tighten Novolog since BSGs trend upwards. Lunch today was 346/344 - did not give IV insulin due to K < 3.5 BACKGROUND * 38 year old male presented with CP, NSTEMI, Type 2 DM, hyperglycemia. Patient also received Dexamethasone 10mg IV x1 in ER this morning contributing to hyperglycemia. * Patient NPO, begin basal bolus SQ insulin at this time, consider IV dose if BSG not responding to SQ dosing. PLAN FOR INPATIENT GLYCEMIC CONTROL: * Hold outpatient diabetes medications * Basal insulin * Lantus 40 units SQ daily * Bolus insulin * NovoLog per scale ACHS or Q6hrs while NPO * Goal Range: Low 110 mg/dL - High 140 mg/dL * Correction Factor 18 mg/dL/unit * Nutritional / Prandial insulin per carb ratio of 1 unit per 3 grams CHO consumed
--- NOTE | 2023-02-21 14:33 | Cardiology Progress Note ---
Date of Service February 21, 2023 Assessment & Plan (1) NSTEMI (non-ST elevated myocardial infarction): (2) Coronary artery disease: (3) HTN (hypertension): (4) Hyperlipidemia: Plan 38-year-old male with history of CAD and prior LAD stenting presents with NSTEMI. Cardiac catheterization performed 02/19/2023 demonstrating mid LAD dissection versus thrombus. Case discussed with interventional cardiology, Dr. Diallo, recommending continued conservative management with IV heparin for total 48 hours and dual antiplatelet therapy. Patient cannot afford Brilinta which will be discontinued in favor of clopidogrel. I have ordered a 300 mg loading dose to be administered this evening. He will then continue clopidogrel 75 mg daily. Continue other cardiovascular medications including lisinopril, metoprolol succinate, and high intensity statin therapy. Admission and Anticipated Discharge Date Admission Date: February 18, 2023 Subjective Patient seen examined the bedside. Feeling well overnight. Denies chest pain or unusual shortness of breath. Telemetry reveals sinus rhythm. Blood pressure well controlled. Contacted by case management regarding financial limitations. Patient cannot afford Brilinta. Review of Systems Review of Systems: All systems reviewed & are unremarkable except as noted in Subjective Physical Exam Constitutional: well developed, well nourished and + obese ENMT: Mallampati Class: III Respiratory: + abnormal respiratory effort, no respir atory distress, no labored breathing and no retractions Auscultation: no crackles, no rales, no rhonchi and no wheezes Cardiovascular: Rate/Rhythm: regular rate and regular rhythm Heart Sounds: normal S1 and normal S2; no murmur Vessels: no JVD and no carotid bruit Extremities: no edema Gastrointestinal (Abdomen): Inspection/Auscultation: abdomen normal to inspection and normal bowel sounds; abdomen not distended Percussion/Palpation: abdomen soft; abdomen nontender, no guarding and abdomen not rigid Neurologic: CN's II-XI intact bilaterally and moves all extremities; no focal motor deficits Results & Data Vital Signs (Past 12 Hours) Vital Signs Temp Pulse Resp BP BP Pulse Ox O2 Del Method 02/21/23 12:04 36.8 C 75 18 111/65 95 Room Air 02/21/23 07:59 36.7 C 71 17 124/86 96 Room Air 02/21/23 02:47 36.7 C 72 18 120/83 95 Room Air (3) HTN (hypertension) Hypertension type: primary hypertension Qualified Code(s): I10 - Essential (primary) hypertension (4) Hyperlipidemia Hyperlipidemia type: mixed hyperlipidemia Qualified Code(s): E78.2 - Mixed hyperlipidemia
--- NOTE | 2023-02-21 15:44 | Hospitalist Progress Note ---
Date of Service February 21, 2023 Assessment & Plan (1) NSTEMI (non-ST elevated myocardial infarction): (2) Coronary artery disease: (3) Psoriatic arthritis: (4) HTN (hypertension): (5) Diabetes: (6) Depression with anxiety: Plan Patient is a 38-year-old male with PMHx significant for Hx of NC s/p stent placement in the LAD, DMII not currently on medications, hypertension, depression, psoriatic arthritis admitted with NSTEMI. NSTEMI: Presented with chest pain with exertion, N/V History of NC s/p stent x 1 in 2018 Initial high sensitive troponin is 42; peaked at 13,000 before downtrending EKG on admission with sinus rhythm with T wave inversion in inferior leads. Chest CTA: Negative for PE; Age advanced coronary artery atherosclerosis Stopped taking medication 6 months ago including antihypertensives; metoprolol and lisinopril Echocardiogram shows EF of 55 to 60% with moderate size septal, anteroseptal and inferior wall motion abnormality with hypokinesis of the segments. S/p left heart cath on 02/19- noted possible dissection in mid LAD; no PCI intervention per Interventional Cardiology, medical management. Started on aspirin, Brilinta per cardiology-discussion of med affordability, transitioned to Plavix, heparin drip discontinued. On a statin, lisinopril and metoprolol. Continue to monitor on telemetry Type 2 diabetes mellitus Stopped taking medications a few months ago HbA1c of 12.3 Was previously on insulin, Ozempic (intolerant to Jardiance). A1c a year ago was 6.1 on those medications childbirth educator consulted- appreciate recs -pt with intolerance of jardiance -Pt states unable to afford even the [employer] $35 for Lantus + pen needles $9. States glucose values are going to be persistently elevated unless he is able to qualify for medical assistance or [facility] care for assistance -If he gets medical assistance, consider Lantus Pen and Trulicity. Will need to start with lowest dose of Trulicity. -will also need prescriptions for a new glucose meter (OneTouch Verio Meter)/testing supplies (OneTouch Verio Test Strips- to check 4x/day and OneTouch Delica Lancets 33 gauge- to check 4x/day) -if [facility] care, they will provide his diabetes medications and testing supplies. Basal/bolus insulin while hospitalized Glycemic consult-appreciate recs H/O rib resection: Chronic stable 2021; with vein revision s/p RUE DVT last year at the [facility] Was on Eliquis for 6 months Psoriatic arthritis: Chronic stable Historically takes Humira; has not taken past 6 months Does not follow with any specialists locally HTN: Chronic stable cysts Historically takes metoprolol 25 mg daily and lisinopril 20 mg daily; has not taken past 6 months due to insurance issues Reportedly per patient; both of those medications cause concerns with his ADHD. ADHD: Depression with anxiety: Chronic stable Was taking Fluoxetine but stopped 6 months ago due to insurance complications; restarted Diet: HH/DMII CODE STATUS: Full code VTE prophylaxis: heparin drip discontinued, Lovenox SQ ordered for DVT pr ophylaxis Dispo: Case management notified for complex needs regarding medication concerns; apply for MA (pt has paperwork but not yet completed) Admission and Anticipated Discharge Date Admission Date: February 18, 2023 Subjective Pt laying in bed, resting comfortably while working on phone. Denied acute concerns. Noted that he had called and submitted required MA paperwork. States that "they're working on it right now". Otherwise no acute concerns. Review of Systems Review of Systems: All systems reviewed & are unremarkable except as noted in Subjective Physical Exam Physical Exam: General: Alert, oriented. No acute distress Skin: No noted rashes or bruises Psych: Appropriate mood and affect Neuro: No gross deficits HEENT: NC/AT, PERRLA, EOMI, oropharynx moist. Chest: Nontender to palpation. CV: RRR Resp: Breath sounds clear bilaterally, no increased effort of breathing. Abdomen: Soft, nontender, nondistended. Extremities: No edema in lower extremities bilaterally. Results & Data Results & Data Vital Signs (Past 12 Hours) Vital Signs Temp Pulse Resp BP BP Pulse Ox O2 Del Method 02/21/23 15:39 36.7 C 92 H 18 115/75 97 Room Air 02/21/23 12:04 36.8 C 75 18 111/65 95 Room Air 02/21/23 07:59 36.7 C 71 17 124/86 96 Room Air (4) HTN (hypertension) Hypertension type: primary hypertension Qualified Code(s): I10 - Essential (primary) hypertension
[2023-02-21] MEDS ORDERED: CLOPIDOGREL BISULFATE 300 MG TAB PO ONE (20:00)
[2023-02-22] MEDS ORDERED: ENOXAPARIN INJ 40 MG/0.4 ML SYR SQ SCH (06:00)
[2023-02-22 06:29] LABS: Basophils # (auto) 0.02 K/uL (0.00-0.20); Basophils % (auto) 0.3 %; Eosinophils % (auto) 1.4 %; Hematocrit (blood only) 47.9 % (42.0-52.0); Immature Granulocytes # (auto) 0.05 K/uL (0.01-0.20); Immature Granulocytes % (auto) 0.7 %; Lymphocytes % (auto) 17.3 %; Mean Corpuscular Hemoglobin 28.8 pg (25.0-34.0); Mean Corpuscular Hgb Conc 35.5 g/dL (32.0-36.0); Mean Corpuscular Volume 81.2 fL (80.0-100.0); Mean Platelet Volume 9.4 fL (9.4-12.4); Monocytes # (auto) 0.65 K/uL (0.11-0.59); Monocytes % (auto) 9.4 %; Neutrophils # (auto) 4.91 K/uL (1.40-6.50); Neutrophils % (auto) 70.9 %; Platelet Count 220 K/uL (130-400); RDW Coefficient of Variation 12.7 % (11.5-14.5); RDW Standard Deviation 37.2 fL (36.4-46.3); White Blood Count 6.93 K/ul (4.8-10.8)
[2023-02-22 06:48] LABS: Albumin Globulin Ratio 1.3 (0.9-2); BUN Creatinine Ratio 29.2 (10-20); Calcium 9.3 mg/dl (8.6-10.3); Creatinine Clr Calc Pharmacy 177.7 ml/min; Est GFR (African American) 139.1 ml/min; Globulin 3.2 gm/dl (2.5-4.0); Magnesium 1.9 mg/dl (1.7-2.4); Phosphorus 3.3 mg/dl (2.5-4.9); Potassium 3.8 mmol/L (3.5-5.1); Total Protein 7.2 gm/dl (6.0-8.3)
[2023-02-22] MEDS: FLUoxetine HCL 20 MG CAP PO SCH (08:09)
[2023-02-22] MEDS: lisinopril 10 MG TAB PO SCH (08:09)
[2023-02-22] MEDS: ASPIRIN 81 MG ECTAB PO SCH (08:10)
[2023-02-22] MEDS: ATORVASTATIN 40 MG TAB PO SCH (08:10)
[2023-02-22] MEDS: METOPROLOL SUCC 25MG EXT REL TAB PO SCH (08:10)
[2023-02-22] MEDS: INSULIN ASPART PER UNIT CHARGE SC SCH ×2 (08:18→12:11)
[2023-02-22] MEDS ORDERED: CLOPIDOGREL BISULFATE 75 MG TAB PO SCH (09:00)
[2023-02-22] MEDS ORDERED: LANTUS PER UNIT CHARGE SQ SCH (09:00)
--- NOTE | 2023-02-22 12:22 | Pharmacy Report ---
Pharmacy Glycemic Short Note 2 - Date of Service February 22, 2023 - Glycemic Short BSG Results (Last 24 hours): 02/21/23 02/21/23 02/22/23 16:24 19:58 05:50 Glucose 204 H POC Glucose 217 H 172 H 02/22/23 02/22/23 07:23 11:28 Glucose POC Glucose 219 H 250 H OUTPATIENT ANTIDIABETIC REGIMEN: * Jardiance 25 mg PO Daily * Ozempic 0.5mg SQ Weekly * Insulin Glargine 20 units SQ BID * A1c 6.6% 02/16/22, 12.3% (02/18/23 since patient unable to take home medications) ASSESSMENT: 02/22/23 * BSGs yesterday were [phone] mg/dL. Patient received 97 units of insulin (40 units of basal and 57 units of bolus). * Fasting today was 219 mg/dL. * Due to fasting trending up, increase basal by 10% to 45 units. Scale for tomorrow with additional increase available. * Tighten Novolog due to BSGs trending upwards. 02/21/23 * BSGs yesterday were 182-346/344-156/119-174 mg/dL. Patient received 80 units of insulin (40 units of basal and 40 units). * Fasting today is 163 mg/dL. Fasting is trending downwards nicely so continue 40 units daily. * CF/CR tightened at lunchtime yesterday. Will tighten CR again as patient appears to be carb sensitive. 02/20/23 * BSGs yesterday were [phone] mg/dL. Patient received 76 units of insulin (42 units of basal and 34 units of bolus). * Fasting today is 182 mg/dL which is trending down. Continue 40 units of Lantus daily. * Tighten Novolog since BSGs trend upwards. Lunch today was 346/344 - did not give IV insulin due to K < 3.5 BACKGROUND * 38 year old male presented with CP, NSTEMI, Type 2 DM, hyperglycemia. Patient also received Dexamethasone 10mg IV x1 in ER this morning contributing to hyperglycemia. * Patient NPO, begin basal bolus SQ insulin at this time, consider IV dose if BSG not responding to SQ dosing. PLAN FOR INPATIENT GLYCEMIC CONTROL: * Hold outpatient diabetes medications * Basal insulin * Lantus 45 units SQ daily * Bolus insulin * NovoLog per scale ACHS or Q6hrs while NPO * Goal Range: Low 110 mg/dL - High 140 mg/dL * Correction Factor 15 mg/dL/unit * Nutritional / Prandial insulin per carb ratio of 1 unit per 2 grams CHO consumed
--- NOTE | 2023-02-22 13:23 | Cardiology Progress Note ---
Date of Service February 22, 2023 Assessment & Plan (1) NSTEMI (non-ST elevated myocardial infarction): (2) Coronary artery disease: (3) HTN (hypertension): (4) Hyperlipidemia: Plan 38-year-old male with history of CAD and prior LAD stenting presents with NSTEMI. Cardiac catheterization performed 02/19/2023 demonstrating mid LAD dissection versus thrombus. Treated with 72 hours of IV heparin and dual antiplatelet therapy. Brilinta discontinued in favor of clopidogrel due to financial constraints. Continue other cardiovascular medications including lisinopril, metoprolol succinate, and high intensity statin therapy. Outpatient cardiology follow-up in 2 weeks. Admission and Anticipated Discharge Date Admission Date: February 18, 2023 Subjective Patient seen and examined at the bedside. Feeling well overnight. Ambulating in the [place] without exertional chest pain or shortness of breath. Tolerating current medications. Planning to establish care with [place] [facility] in medicine upon discharge with subsequent referral for cardiology follow-up at [facility]. Review of Systems Review of Systems: All systems reviewed & are unremarkable except as noted in Subjective Physical Exam Constitutional: well developed, well nourished and + obese Respiratory: + abnormal respiratory effort, no respir atory distress, no labored breathing and no retractions Auscultation: no crackles, no rales, no rhonchi and no wheezes Cardiovascular: Rate/Rhythm: regular rate and regular rhythm Heart Sounds: normal S1 and normal S2; no murmur Vessels: no JVD and no carotid bruit Extremities: no edema Gastrointestinal (Abdomen): Inspection/Auscultation: abdomen normal to inspection and normal bowel sounds; abdomen not distended Percu ssion/Palpation: abdomen soft; abdomen nontender, no guarding and abdomen not rigid Neurologic: CN's II-XI intact bilaterally and moves all extremities; no focal motor deficits Results & Data Vital Signs (Past 12 Hours) Vital Signs Temp Pulse Pulse Resp BP Pulse Ox O2 Del Method 02/22/23 11:39 36.6 C 87 18 122/76 97 Room Air 02/22/23 08:02 70 02/22/23 07:55 Room Air 02/22/23 07:33 36.7 C 71 18 132/86 96 Room Air 02/22/23 02:46 36.5 C 72 18 125/90 96 Room Air Laboratory Results Cardiac Enzymes 02/22/23 Range/Units 05:50 AST 28 (13-39) U/L CBC 02/22/23 Range/Units 05:50 WBC 6.93 (4.8-10.8) K/ul RBC 5.90 (4.70-6.10) M/uL Hgb 17.0 (14.0-18.0) g/dl Hct 47.9 (42.0-52.0) % Plt Count 220 (130-400) K/uL Neut # (Auto) 4.91 (1.40-6.50) K/uL Lymph # (Auto) 1.20 (1.20-3.40) K/uL [place] # (Auto) 0.65 H (0.11-0.59) K/uL Eos # (Auto) 0.10 (0.00-0.50) K/uL Baso # (Auto) 0.02 (0.00-0.20) K/uL Comprehensive Metabolic Panel 02/22/23 Range/Units 05:50 Sodium 136 (136-145) mmol/L Potassium 3.8 (3.5-5.1) mmol/L Chloride 104 (98-107) mmol/L Carbon Dioxide 28 (21-32) mmol/L BUN 21 (6-23) mg/dl Creatinine 0.72 (0.6-1.4) mg/dl Glucose 204 H (70-99(Fasting)) mg/dl Calcium 9.3 (8.6-10.3) mg/dl AST 28 (13-39) U/L ALT 58 H (7-52) U/L Alkaline Phosphatase 79 (34-104) U/L Total Protein 7.2 (6.0-8.3) gm/dl Albumin 4.0 (3.4-5.0) gm/dl Intake and Output 02/21/23 02/22/23 02/22/23 22:59 06:59 14:59 Intake Total 540 / 1414.85 300 / 1414.85 Balance 540 / 1414.85 300 / 1414.85 Intake: Oral 540 / 840 300 / 840 Other: Weight 115.4 kg (3) HTN (hypertension) Hypertension type: primary hypertension Qualified Code(s): I10 - Essential (primary) hypertension (4) Hyperlipidemia Hyperlipidemia type: mixed hyperlipidemia Qualified Code(s): E78.2 - Mixed hyperlipidemia
--- NOTE | 2023-02-22 13:53 | Discharge Summary ---
Discharge Summary Date of Service February 22, 2023 Notes For Next Care Provider See Summary below: NSTEMI with medical management but course complicated by patient's inability to afford medications. Medication Changes From Visit Started on Atorvastatin 80mg daily, lisinopril 10mg daily and metoprolol succinate 25mg daily Glipizide 5mg for DMII, titrate up/change based on pt affordability of medications Re-started on Fluoxetine 60mg on admission- discharged with the same. Admission HPI Per Admitting Provider Mr. Reyes is a 38-year-old male that presents to the ED with complaints of chest pain that started this morning that started at 0530 when he was taking his dogs outside. He reports SOB and one episode of vomiting with the chest pain. The pain lasted a few hours. He reported it as a stabbing chest pain. and his shoulders resulting in him not sleeping well. Reportedly has had an AMI in approximately 5 years ago s/p stent x1 and was on Brilinta for a few years along with While chest CTA negative for PE; moderate progressive atherosclerosis noted. BioFire negative chest CTA negative for PE and chest x-ray negative for acute c ardiopulmonary disease. Last echocardiogram 03/30/2022 at [facility]. Normal LV size. EF 60 to 65% with normal wall motion. No significant valvular dysfunction apparent. Was taking Lisinopril and Metoprolol in the past but he stopped taking them due to how they 'affected his depression'. Additional past medical history includes HTN, depression, CAD status post AMI with stent x1 2017, DM 2 (was on insulin in the past), psoriatic arthritis. H/O Lymes disease diagnosed when he was 6 years old; chronic titer. Patient reports that he has stopped taking all of his medications 6 months ago, including Humira and anti-hypertensives due to insurance complications. Stopped smoking tobacco when he had his initial AMI. Denies alcohol; uses medical marijuana for psoriatic arthritis. No ST elevation noted on ECG; T wave inversion in leads III and aVF which appears to be new from 2021. In ED received ASA 324 mg, IVF x1 L, ketorolac for pain. Pt denies JEAN, dizziness, visual or auditory changes, abdominal pain or tenderness, dysuria, recent falls or trauma. Surgical history: H/o rib resection with vein revision s/p RUE DVT last year at the [facility]. He recently moved here from [place] and has not established with a blue line trimmer here locally. Patient presenting with chest pain; will place on heparin drip for now, obtain echo, pending cardiology consultation. Will trend troponin and keep n.p.o. for now with pain and symptom management. Will discuss with case management regarding insurance issues and medical assistance with medications. Patient will be admitted for further evaluation and management. Please see A/P for further details. Admission Exam Per Admitting Provider General: Obese in no distress Eyes: PERRL, conjunctivae normal, not pale, anicteric sclerae, EOM intact bilaterally ENMT: External ear and nose normal, oropharynx normal Respiratory: Normal respiratory effort, no respiratory distress, lungs clear to auscultation, no crackles and no wheezes Cardiovascular: RRR S1 S2 Chest (Breasts): No chest wall tenderness Gastrointestinal (Abdomen): Abdomen is not distended, soft, non-tender to palpation, no guarding, no palpable hepatosplenomegaly, normal bowel sounds Musculoskeletal: No pedal edema Neurologic: Alert and oriented x 3, No focal weakness, sensation grossly intact Psychiatric: Euthymic affect Principal Dx & Hospital Course #1 = Principal Diagnosis (1) NSTEMI (non-ST elevated myocardial infarction): (2) Coronary artery disease: (3) Psoriatic arthritis: (4) HTN (hypertension): (5) Diabetes: (6) Depression with anxiety: Plan Patient is a 38-year-old male with PMHx significant for Hx of ID s/p stent placement in the LAD, DMII not currently on medications, hypertension, depression, psoriatic arthritis admitted with NSTEMI. NSTEMI: Presented with chest pain with exertion, N/V History of ID s/p stent x 1 in 2018 Initial high sensitive troponin is 42; peaked at 13,000 before downtrending EKG on admission with sinus rhythm with T wave inversion in inferior leads. Chest CTA: Negative for PE; Age advanced coronary artery atherosclerosis Stopped taking medication 6 months ago including antihypertensives; metoprolol and lisinopril Echocardiogram shows EF of 55 to 60% with moderate size septal, anteroseptal and inferior wall motion abnormality with hypokinesis of the segments. S/p left heart cath on 02/19- noted possible dissection in mid LAD; no PCI intervention per Interventional Cardiology, medical management. Originally started on asprin and Brilinta but due to pt's inability to afford Brilinta, he was transitioned to Plavix. Was on a heparin drip for 48 hours after the procedure. Started on Atorvastatin 80mg daily, lisinopril 10mg and metoprolol succinate 25mg and discharged with those medications. Medication cost was a concern- meds were sent to [facility] as some medications were on the $4 list. Pt also applied for medical assistance with the help of [facility] and there was the possibility for follow up with [facility] ([facility] Per CM, will be 5 days before a decision is made on his MA application. Type 2 diabetes mellitus Stopped taking medications a few months ago HbA1c of 12.3 on admission Was previously on insulin, Ozempic (intolerant to Jardiance). A1c a year ago was 6.1 on those medications adult educator consulted- appreciate recs -pt with intolerance of jardiance -Pt states unable to afford even the [facility] $35 for Lantus + pen needles $9. States glucose values are going to be persistently elevated unless he is able to qualify for medical assistance or [facility] care for assistance -If he gets medical assistance, consider Lantus Pen and Trulicity. Will need to start with lowest dose of Trulicity. -will also need prescriptions for a new glucose meter (OneTouch Verio Meter)/testing supplies (OneTouch Verio Test Strips- to check 4x/day and OneTouch Delica Lancets 33 gauge- to check 4x/day) -if [facility] care, they will provide his diabetes medications and testing supplies. Basal/bolus insulin while hospitalized Pt was discharged with the PO medication glipizide 5mg to be taken daily with pcp follow up once he establishes. Once he gets MA approval, please provide prescriptions for adult educator recs noted above. H/O rib resection: Chronic stable 2021; with vein revision s/p RUE DVT last year at the [facility] Was on Eliquis for 6 months Psoriatic arthritis: Chronic stable Historically takes Humira; has not taken past 6 months Does not follow with any specialists locally HTN: Chronic stable cysts Historically takes metoprolol 25 mg daily and lisinopril 20 mg daily; has not taken past 6 months due to insurance issues Reportedly per patient; both of those medications cause concerns with his ADHD. ADHD: Depression with anxiety: Chronic stable Was taking Fluoxetine but stopped 6 months ago due to insurance complications Fluoxetine re-started and discharged with the same Discharge Exam General: Alert, oriented. No acute distress Skin: No noted rashes or bruises Psych: Appropriate mood and affect Neuro: No gross deficits HEENT: NC/AT, PERRLA, EOMI, oropharynx moist. Chest: Nontender to palpation. CV: RRR Resp: Breath sounds clear bilaterally, no increased effort of breathing. Abdomen: Soft, nontender, nondistended. Extremities: No edema in lower extremities bilaterally. Updated Medication List Medication Instructions Recorded Confirmed Type multivitamin with minerals-folic 1 tab PO QAM 02/15/22 02/18/23 History acid 200 mcg chewable tablet (Multivitamin Gummies) aspirin 81 mg tablet,delayed 81 mg PO QAM #30 tabs 02/22/23 Rx release atorvastatin 80 mg tablet 80 mg PO DAILY #30 tabs 02/22/23 Rx clopidogrel 75 mg tablet 75 mg PO QAM #30 tabs 02/22/23 Rx fluoxetine 60 mg tablet 60 mg PO DAILY #30 tabs 02/22/23 Rx glipizide 5 mg tablet 5 mg PO DAILY #30 tabs 02/22/23 Rx lisinopril 10 mg tablet 10 mg PO QAM #30 tabs 02/22/23 Rx metoprolol succinate 25 mg 25 mg PO QAM #30 tabs 02/22/23 Rx tablet,extended release 24 hr Hospital Stay Data Consultations 02/18/23 13:22 ED Decision to Admit Stat 02/18/23 13:37 Consult Cardiology Routine Procedures Performed Operation Date: 02/19/23 09:30 Actual Procedures s Cineradiography w/Routine Exam - Harmeet East DO p Cath, Left with Cors and Vent - Harmeet East DO Diagnostic Imagining Performed 02/18/23 09:35 CT angio chest PE protocol Stat 02/19/23 07:18 CL Cath Imgs for PACS use only Routine Chest X-Ray 02/18/23 08:16 SINGLE VIEW CHEST CLINICAL HISTORY: Atypical chest pain. FINDINGS: 2 AP, portable, upright chest radiographs are correlated with chest CT dated 02/15/2022. The examination is degraded by portable technique and apical lordotic positioning. The cardiomediastinal silhouette is unremarkable. There are low lung volumes with bibasilar atelectasis. The lungs and pleural spaces are otherwise clear. No pneumothorax is seen. The bony thorax is grossly intact. IMPRESSION: No active disease in the chest. ACT 112: Negative or not required by law. Electronically signed by: Shayne Vora M.D. 02/18/2023 8:51 AM Chest CTA 02/18/23 09:35 CT ANGIOGRAM OF THE CHEST CLINICAL HISTORY: Atypical chest pain. Dyspnea. COMPARISON STUDY: Chest x-ray dated 02/18/2023. Chest CT dated 02/15/2022. TECHNIQUE: Following the IV administration of 113 cc of Optiray 320, CT angiogram of the chest was performed from the upper abdomen to the thoracic inlet utilizing the pulmonary embolus protocol. Images are reviewed in the axial, sagittal, and coronal planes. 3-D MIPS images are created and assessed. IV contrast was administered without complication. A dose lowering technique was utilized adhering to the principles of ALARA. CT DOSE: 785.2 mGy.cm FINDINGS: Thyroid: Imaged portions of the thyroid gland are normal in size and attenuation. Thoracic aorta: The thoracic aorta is normal in caliber and demonstrates bovine variant arch anatomy. No dissection is seen. Pulmonary vasculature: The pulmonary trunk is normal in caliber. There are no filling defects identified in main, lobar, or segmental pulmonary branches to suggest acute pulmonary embolus. There is trace chronic pulmonary embolus within the right lower lobe pulmonary artery seen on image #85. Heart: The heart is top normal in size and without pericardial effusion. There is advanced coronary artery atherosclerosis. Lungs and pleural spaces: Evaluation of the lung parenchyma is degraded by motion artifact. There is mild bibasilar scarring/atelectasis. No airspace consolidation or pleural effusion is identified. The trachea and central airways appear clear. A calcified granuloma is seen in the left lower lobe. Mediastinum: There is no mediastinal lymphadenopathy. Beryl: Clear. Axillae: There is no axillary lymphadenopathy. Upper abdomen: The spleen is enlarged, measuring 16 cm in length. Partially visualized upper abdominal viscera is otherwise grossly unremarkable. Skeletal structures: No lytic or blastic bony lesions are seen. IMPRESSION: 1. There is no evidence of acute pulmonary embolus in the main, lobar, or segmental pulmonary arteries. 2. There is trace chronic pulmonary embolus within the right lower lobe pulmonary artery. 3. There is no airspace consolidation or pleural effusion. 4. Age advanced coronary artery atherosclerosis. Consider follow up with cardiology. 5. Splenomegaly. 6. Additional findings as above. ACT 112: Positive. There are findings on this exam that require communication between the performing entity and the patient following Patient Test Result Information Act ([place] Act 112) guidelines. Electronically signed by: Shayne Vora M.D. 02/18/2023 11:10 AM Pending Results Patient Have Any Pending Studies at Discharge: No Discharge Instructions Given to Patient (Per Discharging Provider) Mr. Reyes, You were admitted as you had a heart attack. We recommend taking your medications to help with preventing that from happening again. However, we understand the financial constraints. We sent your medications to [facility] as some of those medications prescribed are on the $4 list or might be cheaper to obtain there. Cardiology is recommending that you continue with the Plavix and aspirin prescribed as well as lisinopril, metoprolol and atorvastatin. They would like to follow up with you in 2 weeks. We prescribed you glipizide at the dose of 5mg to help with your diabetes. That dose can be increased as needed once you follow up with a primary care provider. We also renewed your fluoxetine to help with your mood. Please also keep follow up with a primary care provider for continued medication refills and further continued care. Take care of yourself and best of luck to you. It was a pleasure taking care of you while you were here. Total Time Total Time Spent Total Time Spent (In Minutes): > 30 minutes
[2023-02-23] MEDS ORDERED: LANTUS PER UNIT CHARGE SQ SCH (09:00)
== END 2023-02-22 14:33 | disposition home or self-care (01) | DRG 281 ==
LOC: ED 08:06 → SUATTDRO 13:37 → 2S 13:37